=== PATIENT | male | born 1975 | race African-American/Black ===

== ENCOUNTER 2018-06-13 01:14 | Emergency (ER) | payer BC, OTHER ==
[2018-06-13 02:10] LABS: ADD MAN DIFF? NO
[2018-06-13 02:11] LABS: BASO # 0.1 x10^3/uL (0.0-0.2); BASO % 1 % (0-3); EOS # 0.1 x10^3/uL (0.0-0.7); EOS % 3 % (0-3); HEMATOCRIT 40.3 % (39.0-53.0); HEMOGLOBIN 13.8 g/dL (13.0-17.5); LYMPH # 2.9 x10^3/uL (1.0-4.8); LYMPH % 53 % (24-48); MEAN CORPUSCULAR HEMOGLOBIN 33 pg (25-35); MEAN CORPUSCULAR HGB CONC 34 g/dL (31-37); MEAN CORPUSCULAR VOLUME 96 fL (79-100); MONO # 0.3 x10^3/uL (0.0-1.1); MONO % 6 % (0-9); NEUT % 37 % (31-73); PLATELET COUNT 234 x10^3/uL (140-400); RED BLOOD COUNT 4.18 x10^6/uL (4.30-5.70); RED CELL DISTRIBUTION WIDTH 13.8 % (11.5-14.5); WHITE BLOOD COUNT 5.4 x10^3/uL (4.0-11.0)
[2018-06-13] MEDS: IV NORMAL SALINE 1000ML BAG 1,000 ML IV ×2 (02:13)
[2018-06-13] MEDS: KETOROLAC 30 MG/ML INJ. IV ×2 (02:13)
[2018-06-13] MEDS: FAMOTIDINE 20 MG/2 ML VIAL IVP ×2 (02:14)
[2018-06-13] MEDS: ONDANSETRON PF 4 MG/2 ML VIAL. IV ×2 (02:14)
[2018-06-13] MEDS ORDERED: IOHEXOL 240 MG/ML 50ML VIAL. PO ×2 (02:30)
[2018-06-13] MEDS ORDERED: IOHEXOL 300 MG/ML 100ML VIAL. IV ×2 (02:30)
[2018-06-13] MEDS ORDERED: CONTRAST GIVEN. MC ×2 (02:30)
[2018-06-13 03:21] LABS: ANION GAP 4 (6-14); BLOOD UREA NITROGEN 9 mg/dL (8-26); BUN/CREATININE RATIO 11 (6-20); CALCIUM 8.6 mg/dL (8.5-10.1); CARBON DIOXIDE 31 mmol/L (21-32); CHLORIDE 107 mmol/L (98-107); CREATININE 0.8 mg/dL (0.7-1.3); GFR 127.7; GLUCOSE 75 mg/dL (70-99); POTASSIUM 3.3 mmol/L (3.5-5.1); SODIUM 142 mmol/L (136-145)
[2018-06-13 03:22] LABS: BILIRUBIN,URINE NEGATIVE (NEG); CLARITY,URINE CLEAR; COLOR,URINE YELLOW; GLUCOSE,URINE NEGATIVE (NEG); NITRITE,URINE NEGATIVE (NEG); PROTEIN,URINE NEGATIVE (NEG-TRACE)
[2018-06-13 03:27] LABS: ALBUMIN 3.6 g/dL (3.4-5.0); ALBUMIN/GLOBULIN RATIO 1.2 (1.0-1.7); ALK PHOS 81 U/L (46-116); ALT (SGPT) 34 U/L (16-63); AST (SGOT) 23 U/L (15-37); LIPASE 321 U/L (73-393); MAGNESIUM 1.9 mg/dL (1.8-2.4); TOTAL BILIRUBIN 0.3 mg/dL (0.2-1.0); TOTAL PROTEIN 6.6 g/dL (6.4-8.2)
[2018-06-13 03:29] LABS: BACTERIA,URINE 0 /HPF (0-FEW); RBC,URINE 0 /HPF (0-2); SQUAMOUS EPITHELIAL CELL,UR MOD /LPF
[2018-06-13] MEDS: POTASSIUM CHLORIDE 20 MEQ TABLET.ER. PO ×2 (04:13)
== END 2018-06-13 05:35 | disposition home or self-care (01) ==
LOC: ER 01:14
DX: R10.32 Left lower quadrant pain (principal); R10.84 Generalized abdominal pain (principal); R10.31 Right lower quadrant pain
CPT/HCPCS: 36415; 74177; 80053; 81001; 83690; 83735; 85025; 87086; 96374; 96375; 99285-25; J1885; J2405; J7030; S0028

== ENCOUNTER 2018-11-22 07:27 | Inpatient (IN) | payer BC ==
[~2018-11-22] VITALS: Ht 188 cm; Wt 74.0 kg
[~2018-11-22 07:27] MED LIST: FAMO-63 PO; HYDR-3164 PO; HYOS0.1265 SL; ONDA4TAB7 PO; PANT40TA77 PO
--- NOTE | 2018-11-22 07:38 | EKG ---
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
[2018-11-22] MEDS ORDERED: ASPIRIN CHEWABLE 81 MG TABLET. PO ONE (07:45)
--- NOTE | 2018-11-22 07:48 | PHYS DOC ---
Past Medical History Past Medical History: Other Additional Past Medical Histor: peptic ulcer Past Surgical History: Other Additional Past Surgical Histo: inguinal hernia, RUPUTURED ULCER REPAIR Alcohol Use: None Drug Use: Marijuana Adult General HPI HPI Patient is a 43 year old male presenting with chest pain right side he said it started after eating raisin bread with peanut better he says it hurts to bend over to put his shoes and it hurts to bend over to lean back. It hurts when he twists a certain way to truly not exertional he has mild shortness of breath he is a regular smoker but otherwise no medical history that he knows of he does have a history of GERD but his abdomen is not hurting symptoms are moderate he came in by ambulance there slowly improving with time Review of Systems Review of Systems Constitutional: Denies fever or chills [] Eyes: Denies change in visual acuity, redness, or eye pain [] HENT: Denies nasal congestion or sore throat [] Respirator Cardiovascular: GI: Denies abdominal pain, nausea, vomiting, bloody stools or diarrhea [] : Denies dysuria or hematuria [] Musculoskeletal: Denies back pain or joint pain [] Integument: Denies rash or skin lesions [] Neurologic: Denies headache, focal weakness or sensory changes [] Endocrine: Denies polyuria or polydipsia [] All other systems were reviewed and found to be within normal limits, except as documented in this note. Current Medications Current Medications Current Medications Medications (Trade) Dose Ordered Sig/Mart Start Time Stop Time Status Last Admin Dose Admin Aspirin (Children'S Aspirin) 324 mg 1X ONCE 11/22/18 07:45 11/22/18 07:46 DC Fentanyl Citrate (Fentanyl 2ml Vial) 50 mcg 1X ONCE 11/22/18 08:15 11/22/18 08:16 DC 11/22/18 08:27 50 MCG Lidocaine/ Epinephrine (LIDOCAINE 1%-EPI 1:100,000 Multi-Dose) 20 ml 1X ONCE 11/22/18 08:15 11/22/18 08:16 DC 11/22/18 08:25 20 ML Midazolam HCl (Versed) 2 mg 1X ONCE 11/22/18 08:15 11/22/18 08:16 DC 11/22/18 08:26 2 MG Morphine Sulfate (Morphine Sulfate) 4 mg PRN Q2HR PRN 11/22/18 09:00 1/8/19 08:59 Allergies Allergies Allergies Coded Allergies Type Severity Reaction Last Updated Verified No Known Drug Allergies 07/09/15 No Physical Exam Physical Exam Constitutional: Well developed, well nourished, no acute distress, non-toxic appearance. [] HENT: Normocephalic, atraumatic, bilateral external ears normal, oropharynx moist, no oral exudates, nose normal. [] Eyes: PERRLA, EOMI, conjunctiva normal, no discharge. [] Neck: Normal range of motion, no tenderness, supple, no stridor. [] Cardiovascular:Heart rate regular rhythm, no murmur [] Lungs & Thorax: Bilateral breath sounds clear to auscultation []report of of chest wall tenderness Abdomen: Bowel sounds normal, soft, no tenderness, no masses, no pulsatile masses. [] Skin: Warm, dry, no erythema, no rash. [] Back: No tenderness, no CVA tenderness. [] Extremities: No tenderness, no cyanosis, no clubbing, ROM intact, no edema. [] Neurologic: Alert and oriented X 3, normal motor function, normal sensory function, no focal deficits noted. [] Psychologic: Affect normal, judgement normal, mood normal. [] Current Patient Data Vital Signs Vital Signs Date Time Temp Pulse Resp B/P (MAP) Pulse Ox O2 Delivery O2 Flow Rate FiO2 11/22/18 08:27 16 96 Room Air 11/22/18 07:30 98.3 79 117/72 (87) 98.3 Lab Values Laboratory Tests Test 11/22/18 07:45 White Blood Count 3.8 x10^3/uL (4.0-11.0) L Red Blood Count 4.46 x10^6/uL (4.30-5.70) Hemoglobin 14.9 g/dL (13.0-17.5) Hematocrit 43.4 % (39.0-53.0) Mean Corpuscular Volume 97 fL (79-100) Mean Corpuscular Hemoglobin 33 pg (25-35) Mean Corpuscular Hemoglobin Concent 34 g/dL (31-37) Red Cell Distribution Width 13.3 % (11.5-14.5) Platelet Count 258 x10^3/uL (140-400) Neutrophils (%) (Auto) 36 % (31-73) Lymphocytes (%) (Auto) 54 % (24-48) H Monocytes (%) (Auto) 6 % (0-9) Eosinophils (%) (Auto) 3 % (0-3) Basophils (%) (Auto) 1 % (0-3) Neutrophils # (Auto) 1.4 x10^3uL (1.8-7.7) L Lymphocytes # (Auto) 2.1 x10^3/uL (1.0-4.8) Monocytes # (Auto) 0.2 x10^3/uL (0.0-1.1) Eosinophils # (Auto) 0.1 x10^3/uL (0.0-0.7) Basophils # (Auto) 0.0 x10^3/uL (0.0-0.2) Prothrombin Time 13.3 SEC (11.7-14.0) Prothrombin Time INR 1.0 (0.8-1.1) D-Dimer (Chelsey) 0.53 ug/mlFEU (0.00-0.50) H Sodium Level 141 mmol/L (136-145) Potassium Level 4.4 mmol/L (3.5-5.1) Chloride Level 105 mmol/L (98-107) Carbon Dioxide Level 30 mmol/L (21-32) Anion Gap 6 (6-14) Blood Urea Nitrogen 8 mg/dL (8-26) Creatinine 0.8 mg/dL (0.7-1.3) Estimated GFR (Cockcroft-Gault) 127.7 BUN/Creatinine Ratio 10 (6-20) Glucose Level 85 mg/dL (70-99) Calcium Level 9.0 mg/dL (8.5-10.1) Total Bilirubin 0.5 mg/dL (0.2-1.0) Aspartate Amino Transferase (AST) 30 U/L (15-37) Alanine Aminotransferase (ALT) 26 U/L (16-63) Alkaline Phosphatase 97 U/L (46-116) Troponin I Quantitative < 0.017 ng/mL (0.000-0.055) FN-Bdu-Y-Type Natriuretic Peptide 9 pg/mL (0-124) Total Protein 7.3 g/dL (6.4-8.2) Albumin 3.5 g/dL (3.4-5.0) Albumin/Globulin Ratio 0.9 (1.0-1.7) L Ethyl Alcohol Level < 10 mg/dL (0-10) Laboratory Tests 11/22/18 07:45 Laboratory Tests 11/22/18 07:45 EKG EKG EKG shows a sinus rhythm rate of 73 probably lead placement and V2 but no STEMI was identified interpreted by me time of encounter.[] Radiology/Procedures Radiology/Procedures [] Impressions: LARGE PTX POST CHEST TUBE IMPROVED, CHEST TUBE IN GOOD POSITION Course & Med Decision Making Course & Med Decision Making Pertinent Labs and Imaging studies reviewed. (See chart for details) 43 YO M WITH PTX, LARGE. PROCEDURE NOTE: CHEST TUBE INFORMED CONSENT OBTAINED. CONFIRMED SIDE FENTANYL VERSED FOR PAIN AND ANXIOLYSIS AT SUBSEDATION DOSES . Area was prepped and draped in usual sterile fashion patient was connected to monitors an supplemental oxygen was going LIDOCAINE FOR SUBQ ANESTHEISA A 1.5 cm incision was made over the approximate 40 intercostal space mid care to over the superior portion of the rib usual technique into the pleura 24 Salvadorean tube was placed sutured in place usual dressing was applied patient tolerated quite well overall post procedure chest x-ray showed resolution of the previous pneumothorax discussed withSISILLO to follow the tube in house ADMITTED TO [facility] ORDERED PRIRO TO SEEING THE CXR WILL NOT PURSUE THAT FOR NOW Arnold Disclaimer Dragjoni Disclaimer This electronic medical record was generated, in whole or in part, using a voice recognition dictation system. Departure Departure Impression: Primary Impression: Chest pain Additional Impression: Pneumothorax Disposition: ADMITTED INPATIENT Condition: STABLE Referrals: NO PCP (PCP) Problem Qualifiers GUERA RUDOLPH MD Nov 22, 2018 07:48
--- NOTE | 2018-11-22 08:09 | RAD ---
Portable chest, 11/22/2018: HISTORY: Chest pain Comparison is made to a study from 07/18/2015. A large right-sided pneumothorax has developed. There is underlying atelectasis of the right lung. There is a mild [id number] mediastinal shift indicating that the pneumothorax is under some degree of tension. The left lung is clear. No pleural fluid is seen. IMPRESSION: Large right-sided tension pneumothorax. Note: The findings were called to personnel the [facility] ER at 8:03 AM on 11/22/2018. Electronically signed by: Julio C Vega MD (11/22/2018 8:04 AM) [facility]
[2018-11-22 08:15] LABS: BASO % 1 % (0-3); EOS # 0.1 x10^3/uL (0.0-0.7); EOS % 3 % (0-3); HEMATOCRIT 43.4 % (39.0-53.0); HEMOGLOBIN 14.9 g/dL (13.0-17.5); LYMPH # 2.1 x10^3/uL (1.0-4.8); LYMPH % 54 % (24-48); MEAN CORPUSCULAR HEMOGLOBIN 33 pg (25-35); MEAN CORPUSCULAR HGB CONC 34 g/dL (31-37); MEAN CORPUSCULAR VOLUME 97 fL (79-100); MONO # 0.2 x10^3/uL (0.0-1.1); MONO % 6 % (0-9); NEUT # 1.4 x10^3uL (1.8-7.7); NEUT % 36 % (31-73); PLATELET COUNT 258 x10^3/uL (140-400); RED BLOOD COUNT 4.46 x10^6/uL (4.30-5.70); RED CELL DISTRIBUTION WIDTH 13.3 % (11.5-14.5); WHITE BLOOD COUNT 3.8 x10^3/uL (4.0-11.0)
[2018-11-22] MEDS ORDERED: fentaNYL PF VIAL 100 MCG/2 ML VIAL IV ONE (08:15)
[2018-11-22] MEDS ORDERED: MIDAZOLAM HCL/PF 2 MG/2 ML VIAL. IV ONE (08:15)
[2018-11-22] MEDS ORDERED: LIDOCAINE 1%/EPI 1:100,000 20 ML VIAL. INJ ONE (08:15)
[2018-11-22 08:16] LABS: CREATININE 0.8 mg/dL (0.7-1.3); GFR 127.7; POTASSIUM 4.4 mmol/L (3.5-5.1)
[2018-11-22 08:22] LABS: ALBUMIN 3.5 g/dL (3.4-5.0); ALBUMIN/GLOBULIN RATIO 0.9 (1.0-1.7); TOTAL BILIRUBIN 0.5 mg/dL (0.2-1.0); TOTAL PROTEIN 7.3 g/dL (6.4-8.2)
[2018-11-22 08:27] LABS: PROTHROMBIN TIME PATIENT 13.3 SEC (11.7-14.0)
[2018-11-22 08:31] LABS: D-DIMER 0.53 ug/mlFEU (0.00-0.50)
--- NOTE | 2018-11-22 08:52 | PDOC1 ---
History and Physical Date of Admission Date of Admission DATE: 11/22/18 TIME: 08:49 Identification/Chief Complaint Chief Complaint Shortness of breath Source Source: Patient History of Present Illness History of Present Illness 43 year old male w/ PMHx Smoker, perforated pyloric ulcer and asthma p/w chest pain right side. He was sitting on the couch and he notes while eating a sandwich he had sudden shortness of breath worse when he bent over to put his shoes and it hurts to bend over to lean back. In ED found with a right sided pneumothorax that was relieved with chest tube placement. Started on some nebulizers and pain control. Admitted for further care. 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 Past Medical History Cardiovascular: No pertinent hx Pulmonary: Asthma GI: GI bleed, Peptic Ulcer disease Heme/Onc: No pertinent hx Hepatobiliary: No pertinent hx Psych: No pertinent hx Musculoskeletal: low back pain Rheumatologic: No pertinent hx Infectious disease: No pertinent hx ENT: No pertinent hx Renal/: No pertinent hx Endocrine: No pertinent hx Dermatology: No pertinent hx Family History Family History: Asthma Social History Smoke: 1 pack per day ALCOHOL: rare Drugs: None Current Problem List Problem List Problems Medical Problems: (1) Chest pain Status: Acute Current Medications Current Medications Current Medications Aspirin (Children'S Aspirin) 324 mg 1X ONCE PO ; Start 11/22/18 at 07:45; Stop 11/22/18 at 07:46; Status DC Fentanyl Citrate (Fentanyl 2ml Vial) 50 mcg 1X ONCE IV Last administered on 11/22/18at 08:27; Start 11/22/18 at 08:15; Stop 11/22/18 at 08:16; Status DC Lidocaine/ Epinephrine (LIDOCAINE 1%-EPI 1:100,000 Multi-Dose) 20 ml 1X ONCE INJ Last administered on 11/22/18at 08:25; Start 11/22/18 at 08:15; Stop 11/22/18 at 08:16; Status DC Midazolam HCl (Versed) 2 mg 1X ONCE IV Last administered on 11/22/18at 08:26; Start 11/22/18 at 08:15; Stop 11/22/18 at 08:16; Status DC Active Scripts Active Levsin-Sl (Hyoscyamine Sulfate) 0.125 Mg Tab.subl 1 Tab SL PRN Q4HRS PRN Zofran (Ondansetron Hcl) 4 Mg Tablet 1 Tab PO Q8HRS PRN Pepcid (Famotidine) 20 Mg Tablet 20 Mg PO BID [place] 5-325 Tablet (Acetaminophen/Hydrocodone Bitart) 1 Each Tablet 1 Tab PO PRN Q6HRS PRN Protonix (Pantoprazole Sodium) 40 Mg Tablet.dr 40 Mg PO DAILY Allergies Allergies: Coded Allergies: No Known Drug Allergies (Unverified , 07/09/15) ROS General: No: Chills, Night Sweats, Fatigue, Malaise, Appetite, Other PSYCHOLOGICAL ROS: No: Anxiety, Behavioral Disorder, Concentration difficultie , Decreased libido, Depression, Disorientation, Hallucinations, Hostility, Irritablity, Memory difficulties, Mood Swings, Obsessive thoughts, Physical abuse, Sexual abuse, Sleep disturbances, Suicidal ideation, Other Eyes: No Blurry vision, No Decreased vision, No Double vision, No Dry eyes, No Excessive tearing, No Eye Pain, No Itchy Eyes, No Loss of vision, No Photophobia , No Scotomata, No Uses contacts, No Uses glasses, No Other HEENT: No: Heacaches, Visual Changes, Hearing change, Nasal congestion, Nasal discharge, Oral lesions, Sinus pain, Sore Throat, Epistaxis, Sneezing, Snoring, Tinnitus, Vertigo, Vocal changes, Other ALLERGY AND IMMUNOLOGY: No: Hives, Insect Bite Sensitivity, Itchy/Watery Eyes, Nasal Congestion, Post Nasal Drip, Seasonal Allergies, Other Hematological and Lymphatic: No: Bleeding Problems, Blood Clots, Blood Transfusions, Brusing, Night Sweats, Pallor, Swollen Lymph Nodes, Other ENDOCRINE: No: Breast Changes, Galactorrhea, Hair Pattern Changes, Hot Flashes , Malaise/lethargy, Mood Swings, Palpitations, Polydipsia/polyuria, Skin Changes , Temperature Intolerance, Unexpected Weight Changes, Other Breast: No New/Changing Breast Lumps, No Nipple changes, No Nipple discharge, No Other Respiratory: YES: Pleuritic Pain, Shortness of breath; No: Cough, Hemoptysis, Orthopnea, SOB with excertion, Sputum Changes, Stridor , Tachypnea, Wheezing, Other Cardiovascular: yes Chest Pain; No Palpitations, No Orthopnea, No Paroxysmal Noc. Dyspnea, No Edema, No Lt Headedness, No Other Gastrointestinal: Yes Nausea; No Vomiting, No Abdominal Pain, No Diarrhea, No Constipation, No Melena, No Hematochezia, No Other Genitourinary: No Dysuria, No Frequency, No Incontinence, No Hematuria, No Retention, No Discharge, No Urgency, No Pain, No Flank Pain, No Other, No , No , No , No , No , No , No Musculoskeletal: No Gait Disturbance, No Joint Pain, No Joint Stiffness, No Joint Swelling, No Muscle Pain, No Muscular Weakness, No Pain In:, No Swelling In:, No Other Neurological: No Behavorial Changes, No Bowel/Bladder ControlChng, No Confusion , No Dizziness, No Gait Disturbance, No Headaches, No Impaired Coord/balance, No Memory Loss, No Numbness/Tingling, No Seizures, No Speech Problems, No Tremors, No Visual Changes, No Weakness, No Other Skin: No Dry Skin, No Eczema, No Hair Changes, No Lumps, No Mole Changes, No Mottling, No Nail Changes, No Pruritus, No Rash, No Skin Lesion Changes, No Other, No Acne Physical Exam General: Alert, Oriented X3, Cooperative, mild distress HEENT: Atraumatic, PERRLA, EOMI, Mucous membr. moist/pink Lungs: Clear to auscultation, Normal air movement, Other (Right sided chest tube dressing clean and dry) Heart: S1S2, RRR, no gallops, no murmurs Abdomen: Normal bowel sounds, Soft, No tenderness, No hepatosplenomegaly, No masses Extremities: No clubbing, No cyanosis, No edema, Normal pulses, No tenderness/ swelling Skin: No rashes, No breakdown, No significant lesion Neuro: Normal gait, Normal speech, Strength at 5/5 X4 ext, Normal tone, Sensation intact, Cranial nerves 3-12 NL, Reflexes 2+ Psych/Mental Status: Mental status NL, Mood NL Vitals Vitals Vital Signs Date Time Temp Pulse Resp B/P (MAP) Pulse Ox O2 Delivery O2 Flow Rate FiO2 11/22/18 08:27 16 96 Room Air 11/22/18 07:30 98.3 79 117/72 (87) 98.3 Labs Labs Laboratory Tests Test 11/22/18 07:45 White Blood Count 3.8 x10^3/uL (4.0-11.0) Red Blood Count 4.46 x10^6/uL (4.30-5.70) Hemoglobin 14.9 g/dL (13.0-17.5) Hematocrit 43.4 % (39.0-53.0) Mean Corpuscular Volume 97 fL (79-100) Mean Corpuscular Hemoglobin 33 pg (25-35) Mean Corpuscular Hemoglobin Concent 34 g/dL (31-37) Red Cell Distribution Width 13.3 % (11.5-14.5) Platelet Count 258 x10^3/uL (140-400) Neutrophils (%) (Auto) 36 % (31-73) Lymphocytes (%) (Auto) 54 % (24-48) Monocytes (%) (Auto) 6 % (0-9) Eosinophils (%) (Auto) 3 % (0-3) Basophils (%) (Auto) 1 % (0-3) Neutrophils # (Auto) 1.4 x10^3uL (1.8-7.7) Lymphocytes # (Auto) 2.1 x10^3/uL (1.0-4.8) Monocytes # (Auto) 0.2 x10^3/uL (0.0-1.1) Eosinophils # (Auto) 0.1 x10^3/uL (0.0-0.7) Basophils # (Auto) 0.0 x10^3/uL (0.0-0.2) Prothrombin Time 13.3 SEC (11.7-14.0) Prothromb Time International Ratio 1.0 (0.8-1.1) D-Dimer (Chelsey) 0.53 ug/mlFEU (0.00-0.50) Sodium Level 141 mmol/L (136-145) Potassium Level 4.4 mmol/L (3.5-5.1) Chloride Level 105 mmol/L (98-107) Carbon Dioxide Level 30 mmol/L (21-32) Anion Gap 6 (6-14) Blood Urea Nitrogen 8 mg/dL (8-26) Creatinine 0.8 mg/dL (0.7-1.3) Estimated GFR (Cockcroft-Gault) 127.7 BUN/Creatinine Ratio 10 (6-20) Glucose Level 85 mg/dL (70-99) Calcium Level 9.0 mg/dL (8.5-10.1) Total Bilirubin 0.5 mg/dL (0.2-1.0) Aspartate Amino Transf (AST/SGOT) 30 U/L (15-37) Alanine Aminotransferase (ALT/SGPT) 26 U/L (16-63) Alkaline Phosphatase 97 U/L (46-116) Troponin I Quantitative < 0.017 ng/mL (0.000-0.055) BB-Zex-J-Type Natriuretic Peptide 9 pg/mL (0-124) Total Protein 7.3 g/dL (6.4-8.2) Albumin 3.5 g/dL (3.4-5.0) Albumin/Globulin Ratio 0.9 (1.0-1.7) Ethyl Alcohol Level < 10 mg/dL (0-10) Laboratory Tests Test 11/22/18 07:45 White Blood Count 3.8 x10^3/uL (4.0-11.0) Red Blood Count 4.46 x10^6/uL (4.30-5.70) Hemoglobin 14.9 g/dL (13.0-17.5) Hematocrit 43.4 % (39.0-53.0) Mean Corpuscular Volume 97 fL (79-100) Mean Corpuscular Hemoglobin 33 pg (25-35) Mean Corpuscular Hemoglobin Concent 34 g/dL (31-37) Red Cell Distribution Width 13.3 % (11.5-14.5) Platelet Count 258 x10^3/uL (140-400) Neutrophils (%) (Auto) 36 % (31-73) Lymphocytes (%) (Auto) 54 % (24-48) Monocytes (%) (Auto) 6 % (0-9) Eosinophils (%) (Auto) 3 % (0-3) Basophils (%) (Auto) 1 % (0-3) Neutrophils # (Auto) 1.4 x10^3uL (1.8-7.7) Lymphocytes # (Auto) 2.1 x10^3/uL (1.0-4.8) Monocytes # (Auto) 0.2 x10^3/uL (0.0-1.1) Eosinophils # (Auto) 0.1 x10^3/uL (0.0-0.7) Basophils # (Auto) 0.0 x10^3/uL (0.0-0.2) Prothrombin Time 13.3 SEC (11.7-14.0) Prothromb Time International Ratio 1.0 (0.8-1.1) D-Dimer (Chelsey) 0.53 ug/mlFEU (0.00-0.50) Sodium Level 141 mmol/L (136-145) Potassium Level 4.4 mmol/L (3.5-5.1) Chloride Level 105 mmol/L (98-107) Carbon Dioxide Level 30 mmol/L (21-32) Anion Gap 6 (6-14) Blood Urea Nitrogen 8 mg/dL (8-26) Creatinine 0.8 mg/dL (0.7-1.3) Estimated GFR (Cockcroft-Gault) 127.7 BUN/Creatinine Ratio 10 (6-20) Glucose Level 85 mg/dL (70-99) Calcium Level 9.0 mg/dL (8.5-10.1) Total Bilirubin 0.5 mg/dL (0.2-1.0) Aspartate Amino Transf (AST/SGOT) 30 U/L (15-37) Alanine Aminotransferase (ALT/SGPT) 26 U/L (16-63) Alkaline Phosphatase 97 U/L (46-116) Troponin I Quantitative < 0.017 ng/mL (0.000-0.055) ST-Ogf-T-Type Natriuretic Peptide 9 pg/mL (0-124) Total Protein 7.3 g/dL (6.4-8.2) Albumin 3.5 g/dL (3.4-5.0) Albumin/Globulin Ratio 0.9 (1.0-1.7) Ethyl Alcohol Level < 10 mg/dL (0-10) Images Images CXR - Large right-sided tension pneumothorax. VTE Prophylaxis Ordered VTE Prophylaxis Devices: Yes VTE Pharmacological Prophylaxi: No Assessment/Plan Assessment/Plan A/P: Right sided pneumothorax - Spontaneous, resolution with chest tube placement. Will consult pulm Chronic asthmatic bronchitis - agree he needs smoking cessation and likely alpha -1 testing Smoker - counseled on cessation h/o PUD - with bleeding requiring transfusion, will use SCDs, GI PPx FEN - General diet PPX - SCDs, GI PPX FULL CODE Inpatient for PTX monitoring of resolution, etiology. Appreciate pulmonary consultation MANDO JEREZ MD Nov 22, 2018 08:52
--- NOTE | 2018-11-22 09:09 | RAD ---
Portable chest, 11/22/2018, 8:31 AM: HISTORY: Pneumothorax Comparison is made to study of earlier the same day. A right chest tube has been inserted with resolution of the previously seen large right pneumothorax. No significant residual pneumothorax is evident. The lung has largely reexpanded with only mild residual streaky right perihilar atelectasis. There is mild subcutaneous emphysema in the right lateral chest wall. The left lung remains clear. The heart size is normal. There is no evidence of significant pneumothorax. IMPRESSION: Interval resolution of the right pneumothorax status post right chest tube placement. Electronically signed by: Julio C Vega MD (11/22/2018 9:05 AM) [facility]
[2018-11-22 09:14] LABS: AMPHETAMINE/METHAMPHETAMINE NEG (NEG); BARBITURATES NEG (NEG); BENZODIAZEPINES NEG (NEG); CANNABINOIDS NEG (NEG); COCAINE NEG (NEG); METHADONE NEG (NEG); OPIATES NEG (NEG); PHENCYCLIDINE NEG (NEG)
[2018-11-22 10:30] VITALS: BP 114/79
[2018-11-22] MEDS: MORPHINE SULFATE 4 MG/ML VIAL. IV PRN ×3 (11:01→21:31)
--- NOTE | 2018-11-22 13:15 | PDOC ---
PULMONARY PROGRESS NOTES Vitals Vital Signs Date Time Temp Pulse Resp B/P (MAP) Pulse Ox O2 Delivery O2 Flow Rate FiO2 11/22/18 11:01 16 Nasal Cannula 2.0 11/22/18 10:30 97.6 57 114/79 (91) 98 97.6 Lungs: Clear Labs Laboratory Tests Test 11/22/18 07:45 11/22/18 08:22 White Blood Count 3.8 x10^3/uL (4.0-11.0) Red Blood Count 4.46 x10^6/uL (4.30-5.70) Hemoglobin 14.9 g/dL (13.0-17.5) Hematocrit 43.4 % (39.0-53.0) Mean Corpuscular Volume 97 fL (79-100) Mean Corpuscular Hemoglobin 33 pg (25-35) Mean Corpuscular Hemoglobin Concent 34 g/dL (31-37) Red Cell Distribution Width 13.3 % (11.5-14.5) Platelet Count 258 x10^3/uL (140-400) Neutrophils (%) (Auto) 36 % (31-73) Lymphocytes (%) (Auto) 54 % (24-48) Monocytes (%) (Auto) 6 % (0-9) Eosinophils (%) (Auto) 3 % (0-3) Basophils (%) (Auto) 1 % (0-3) Neutrophils # (Auto) 1.4 x10^3uL (1.8-7.7) Lymphocytes # (Auto) 2.1 x10^3/uL (1.0-4.8) Monocytes # (Auto) 0.2 x10^3/uL (0.0-1.1) Eosinophils # (Auto) 0.1 x10^3/uL (0.0-0.7) Basophils # (Auto) 0.0 x10^3/uL (0.0-0.2) Prothrombin Time 13.3 SEC (11.7-14.0) Prothromb Time International Ratio 1.0 (0.8-1.1) D-Dimer (Chelsey) 0.53 ug/mlFEU (0.00-0.50) Sodium Level 141 mmol/L (136-145) Potassium Level 4.4 mmol/L (3.5-5.1) Chloride Level 105 mmol/L (98-107) Carbon Dioxide Level 30 mmol/L (21-32) Anion Gap 6 (6-14) Blood Urea Nitrogen 8 mg/dL (8-26) Creatinine 0.8 mg/dL (0.7-1.3) Estimated GFR (Cockcroft-Gault) 127.7 BUN/Creatinine Ratio 10 (6-20) Glucose Level 85 mg/dL (70-99) Calcium Level 9.0 mg/dL (8.5-10.1) Total Bilirubin 0.5 mg/dL (0.2-1.0) Aspartate Amino Transf (AST/SGOT) 30 U/L (15-37) Alanine Aminotransferase (ALT/SGPT) 26 U/L (16-63) Alkaline Phosphatase 97 U/L (46-116) Troponin I Quantitative < 0.017 ng/mL (0.000-0.055) BH-Qyf-Q-Type Natriuretic Peptide 9 pg/mL (0-124) Total Protein 7.3 g/dL (6.4-8.2) Albumin 3.5 g/dL (3.4-5.0) Albumin/Globulin Ratio 0.9 (1.0-1.7) Ethyl Alcohol Level < 10 mg/dL (0-10) Urine Opiates Screen Neg (NEG) Urine Methadone Screen Neg (NEG) Urine Barbiturates Neg (NEG) Urine Phencyclidine Screen Neg (NEG) Urine Amphetamine/Methamphetamine Neg (NEG) Urine Benzodiazepines Screen Neg (NEG) Urine Cocaine Screen Neg (NEG) Urine Cannabinoids Screen Neg (NEG) Urine Ethyl Alcohol Neg (NEG) Laboratory Tests Test 11/22/18 07:45 11/22/18 08:22 White Blood Count 3.8 x10^3/uL (4.0-11.0) Red Blood Count 4.46 x10^6/uL (4.30-5.70) Hemoglobin 14.9 g/dL (13.0-17.5) Hematocrit 43.4 % (39.0-53.0) Mean Corpuscular Volume 97 fL (79-100) Mean Corpuscular Hemoglobin 33 pg (25-35) Mean Corpuscular Hemoglobin Concent 34 g/dL (31-37) Red Cell Distribution Width 13.3 % (11.5-14.5) Platelet Count 258 x10^3/uL (140-400) Neutrophils (%) (Auto) 36 % (31-73) Lymphocytes (%) (Auto) 54 % (24-48) Monocytes (%) (Auto) 6 % (0-9) Eosinophils (%) (Auto) 3 % (0-3) Basophils (%) (Auto) 1 % (0-3) Neutrophils # (Auto) 1.4 x10^3uL (1.8-7.7) Lymphocytes # (Auto) 2.1 x10^3/uL (1.0-4.8) Monocytes # (Auto) 0.2 x10^3/uL (0.0-1.1) Eosinophils # (Auto) 0.1 x10^3/uL (0.0-0.7) Basophils # (Auto) 0.0 x10^3/uL (0.0-0.2) Prothrombin Time 13.3 SEC (11.7-14.0) Prothromb Time International Ratio 1.0 (0.8-1.1) D-Dimer (Chelsey) 0.53 ug/mlFEU (0.00-0.50) Sodium Level 141 mmol/L (136-145) Potassium Level 4.4 mmol/L (3.5-5.1) Chloride Level 105 mmol/L (98-107) Carbon Dioxide Level 30 mmol/L (21-32) Anion Gap 6 (6-14) Blood Urea Nitrogen 8 mg/dL (8-26) Creatinine 0.8 mg/dL (0.7-1.3) Estimated GFR (Cockcroft-Gault) 127.7 BUN/Creatinine Ratio 10 (6-20) Glucose Level 85 mg/dL (70-99) Calcium Level 9.0 mg/dL (8.5-10.1) Total Bilirubin 0.5 mg/dL (0.2-1.0) Aspartate Amino Transf (AST/SGOT) 30 U/L (15-37) Alanine Aminotransferase (ALT/SGPT) 26 U/L (16-63) Alkaline Phosphatase 97 U/L (46-116) Troponin I Quantitative < 0.017 ng/mL (0.000-0.055) KR-Xux-C-Type Natriuretic Peptide 9 pg/mL (0-124) Total Protein 7.3 g/dL (6.4-8.2) Albumin 3.5 g/dL (3.4-5.0) Albumin/Globulin Ratio 0.9 (1.0-1.7) Ethyl Alcohol Level < 10 mg/dL (0-10) Urine Opiates Screen Neg (NEG) Urine Methadone Screen Neg (NEG) Urine Barbiturates Neg (NEG) Urine Phencyclidine Screen Neg (NEG) Urine Amphetamine/Methamphetamine Neg (NEG) Urine Benzodiazepines Screen Neg (NEG) Urine Cocaine Screen Neg (NEG) Urine Cannabinoids Screen Neg (NEG) Urine Ethyl Alcohol Neg (NEG) Medications Active Scripts Medications Dose Route/Sig Max Daily Dose Days Date Category Levsin-Sl (Hyoscyamine Sulfate) 0.125 Mg Tab.subl 1 Tab SL PRN Q4HRS PRN 06/13/18 Rx Zofran (Ondansetron Hcl) 4 Mg Tablet 1 Tab PO Q8HRS PRN 06/13/18 Rx Pepcid (Famotidine) 20 Mg Tablet 20 Mg PO BID 06/13/18 Rx [place] 5-325 Tablet (Acetaminophen/Hydrocodone Bitart) 1 Each Tablet 1 Tab PO PRN Q6HRS PRN 10/26/16 Rx Protonix (Pantoprazole Sodium) 40 Mg Tablet.dr 40 Mg PO DAILY 10/26/16 Rx Impression . DICTATED SEE ORDERS PTX DAY SANABRIA MD Nov 22, 2018 13:15
[2018-11-22 15:00] VITALS: BP 118/76
--- NOTE | 2018-11-22 15:42 | RAD ---
CT of the chest without contrast, 11/22/2018: HISTORY: Pneumothorax Noncontrast scans were obtained with multiplanar reconstructions produced. Some of the images in the upper chest are compromised by patient respiratory motion artifact. A large caliber right chest tube is in place extending into the lateral aspect of the right oblique fissure. There is minimal adjacent parenchymal atelectasis/contusion. A small right pneumothorax is present. Several small subpleural blebs and bullae are seen in the right apex which may represent the source of the pneumothorax. There is mild atelectasis/infiltrate posteriorly in the right lower lobe. A few other scattered streaky opacities in the right lung probably represent atelectasis. There is mild atelectasis posteriorly in the left lower lobe. There are couple small subpleural blebs in the left apex and medial aspect of the left upper lobe. No left-sided pneumothorax is seen. There is no evidence of a significant volume of free pleural fluid on either side. There is a small cystic structure in the right cardiophrenic angle anteriorly which in retrospect was also present on 06/13/2018. This probably represents a small pericardial cyst. There is a paucity of mediastinal fat in this patient. The thoracic aorta is of normal caliber. No mediastinal adenopathy is seen. There is mild chest wall emphysema laterally on the right related to the chest tube insertion site. No recent fracture is identified. IMPRESSION: 1. A right chest tube is in place with a small residual right pneumothorax. 2. Mild associated right lateral chest wall emphysema. 3. Subpleural blebs and small bullae in the apices, more so on the right. 4. Mild atelectasis/infiltrate posteriorly in the right lung base, with a few other scattered streaky right pulmonary opacities compatible with atelectasis. 5. Mild left basilar atelectasis. 6. Probable small pericardial cyst on the right. PQRS Compliance Statement: One or more of the following individualized dose reduction techniques were utilized for this examination: 1. Automated exposure control 2. Adjustment of the mA and/or kV according to patient size 3. Use of iterative reconstruction technique Electronically signed by: Julio C Vega MD (11/22/2018 3:38 PM) [facility]
[2018-11-22] MEDS ORDERED: INFLUENZA VAX SCREEN BY RX. MC PRN (16:30)
--- NOTE | 2018-11-22 19:30 | CONS ---
DATE OF CONSULTATION: 11/22/2018 ATTENDING PHYSICIAN: Michael Álvarez MD. REASON FOR CONSULTATION: The patient seen in pulmonary consultation at the request of Dr. Ávlarez for a spontaneous pneumothorax. HISTORY OF PRESENT ILLNESS: The patient is a 43-year-old that smokes, presented with an acute onset of shortness of air and chest discomfort, was sitting at a sofa watching TV. The patient had a chest x-ray revealing pneumothorax. The Emergency Department physician placed a right chest tube. Currently, the lung is up. The patient is having some discomfort from the tube itself. No recent trauma. Denies any prior history of pneumothorax. No family history of early emphysema or pneumothorax. REVIEW OF SYSTEMS: As indicated above, otherwise, a 10-point system was reviewed and negative. SOCIAL HISTORY: He smokes, works at [employer]. CURRENT MEDICATIONS: List was reviewed. FAMILY HISTORY: No family history of early emphysema. PHYSICAL EXAMINATION: GENERAL: Thin individual in no respiratory distress. VITAL SIGNS: Stable. O2 saturation was greater than 92% on 2 liters. HEENT: Eyes, the sclerae were nonicteric. NECK: No subcutaneous emphysema. CHEST: Full expansion. LUNGS: Poor airway flow, no wheezes. CARDIOVASCULAR: Regular rate and rhythm with S1, S2, no S3. ABDOMEN: Soft, nontender, nondistended. EXTREMITIES: No clubbing, cyanosis or edema. NEUROLOGIC: The patient was awake, alert, following commands. A detailed neuro exam was not performed. LABORATORY DATA: Electrolytes were noted. Urine drug screen was negative. INR was 1.0. White count was normal. Chest x-ray as indicated above. IMPRESSION: 1. Spontaneous pneumothorax. 2. Chronic obstructive pulmonary disease, unknown FEV1. PLAN: 1. Continue chest tube placement. 2. Follow up in the outpatient department. We will obtain an alpha [address] chest. I do appreciate the privilege in sharing this patient's care. DAY SANABRIA MD DR: ASHTYN/nayely JOB#: [id number] / [id number]
[2018-11-22 19:35] VITALS: BP 137/93
[2018-11-22] MEDS ORDERED: ONDANSETRON ODT 4 MG TAB.RAPDIS. PO PRN (21:15)
[2018-11-22] MEDS ORDERED: HYOSCYAMINE 0.125 MG TAB.RAPDIS PO PRN (21:15)
[2018-11-22] MEDS: FAMOTIDINE 20 MG TABLET. PO SCH (21:30)
[2018-11-22 23:29] VITALS: BP 117/78
[2018-11-23 04:00] VITALS: BP 115/80
[2018-11-23] MEDS: PANTOPRAZOLE 40 MG TABLET.DR. PO SCH (06:05)
[2018-11-23] MEDS: MORPHINE SULFATE 4 MG/ML VIAL. IV PRN (06:11)
[2018-11-23 07:00] VITALS: BP 131/88
[2018-11-23] MEDS: FAMOTIDINE 20 MG TABLET. PO SCH (08:48)
--- NOTE | 2018-11-23 10:25 | RAD ---
Portable chest, 11/23/2017: HISTORY: Follow-up pneumothorax Comparison is made to yesterday's study at 8:31 AM. The right chest tube has retracted slightly. There is now a small right apical pneumothorax. There is mild ongoing subcutaneous emphysema in the right lateral chest wall which is stable. There is mild bibasilar atelectasis/infiltrate, not evident on yesterday's portable chest radiograph. No significant pleural fluid is seen. The heart size is normal. IMPRESSION: 1. The right chest tube has retracted slightly. 2. A small right apical pneumothorax has redeveloped. 3. Mild bibasilar atelectasis/infiltrate has developed. Electronically signed by: Julio C Vega MD (11/23/2018 10:21 AM) [facility]
--- NOTE | 2018-11-23 10:26 | NUR ---
Patients requests that he get his flu shot at discharge.
[2018-11-23] MEDS: HYDROcodone/APAP 5/325MG 1 TAB TABLET PO PRN ×2 (10:54→17:53)
[2018-11-23 11:00] VITALS: BP 113/74
--- NOTE | 2018-11-23 13:03 | PDOC ---
PULMONARY PROGRESS NOTES Subjective no soa Vitals Vital Signs Date Time Temp Pulse Resp B/P (MAP) Pulse Ox O2 Delivery O2 Flow Rate FiO2 11/23/18 11:56 16 Room Air 11/23/18 11:00 98.5 61 113/74 (87) 95 98.5 11/22/18 15:00 2.0 General: Alert, No acute distress Lungs: Clear Cardiovascular: S1 Abdomen: Soft Neuro Exam: Alert Extremities: No Edema Skin: Warm Labs Laboratory Tests Test 11/22/18 07:45 11/22/18 08:22 11/22/18 15:25 White Blood Count 3.8 x10^3/uL (4.0-11.0) Red Blood Count 4.46 x10^6/uL (4.30-5.70) Hemoglobin 14.9 g/dL (13.0-17.5) Hematocrit 43.4 % (39.0-53.0) Mean Corpuscular Volume 97 fL (79-100) Mean Corpuscular Hemoglobin 33 pg (25-35) Mean Corpuscular Hemoglobin Concent 34 g/dL (31-37) Red Cell Distribution Width 13.3 % (11.5-14.5) Platelet Count 258 x10^3/uL (140-400) Neutrophils (%) (Auto) 36 % (31-73) Lymphocytes (%) (Auto) 54 % (24-48) Monocytes (%) (Auto) 6 % (0-9) Eosinophils (%) (Auto) 3 % (0-3) Basophils (%) (Auto) 1 % (0-3) Neutrophils # (Auto) 1.4 x10^3uL (1.8-7.7) Lymphocytes # (Auto) 2.1 x10^3/uL (1.0-4.8) Monocytes # (Auto) 0.2 x10^3/uL (0.0-1.1) Eosinophils # (Auto) 0.1 x10^3/uL (0.0-0.7) Basophils # (Auto) 0.0 x10^3/uL (0.0-0.2) Prothrombin Time 13.3 SEC (11.7-14.0) Prothromb Time International Ratio 1.0 (0.8-1.1) D-Dimer (Chelsey) 0.53 ug/mlFEU (0.00-0.50) Sodium Level 141 mmol/L (136-145) Potassium Level 4.4 mmol/L (3.5-5.1) Chloride Level 105 mmol/L (98-107) Carbon Dioxide Level 30 mmol/L (21-32) Anion Gap 6 (6-14) Blood Urea Nitrogen 8 mg/dL (8-26) Creatinine 0.8 mg/dL (0.7-1.3) Estimated GFR (Cockcroft-Gault) 127.7 BUN/Creatinine Ratio 10 (6-20) Glucose Level 85 mg/dL (70-99) Calcium Level 9.0 mg/dL (8.5-10.1) Total Bilirubin 0.5 mg/dL (0.2-1.0) Aspartate Amino Transf (AST/SGOT) 30 U/L (15-37) Alanine Aminotransferase (ALT/SGPT) 26 U/L (16-63) Alkaline Phosphatase 97 U/L (46-116) Troponin I Quantitative < 0.017 ng/mL (0.000-0.055) XG-Zhv-G-Type Natriuretic Peptide 9 pg/mL (0-124) Total Protein 7.3 g/dL (6.4-8.2) Albumin 3.5 g/dL (3.4-5.0) Albumin/Globulin Ratio 0.9 (1.0-1.7) Ethyl Alcohol Level < 10 mg/dL (0-10) Urine Opiates Screen Neg (NEG) Urine Methadone Screen Neg (NEG) Urine Barbiturates Neg (NEG) Urine Phencyclidine Screen Neg (NEG) Urine Amphetamine/Methamphetamine Neg (NEG) Urine Benzodiazepines Screen Neg (NEG) Urine Cocaine Screen Neg (NEG) Urine Cannabinoids Screen Neg (NEG) Urine Ethyl Alcohol Neg (NEG) Qnhzr-2-Ixnsifpogfn 146 mg/dL (90-200) Laboratory Tests Test 11/22/18 15:25 Szfbq-1-Vxsdqebiuiu 146 mg/dL (90-200) Medications Active Scripts Medications Dose Route/Sig Max Daily Dose Days Date Category Levsin-Sl (Hyoscyamine Sulfate) 0.125 Mg Tab.subl 1 Tab SL PRN Q4HRS PRN 06/13/18 Rx Zofran (Ondansetron Hcl) 4 Mg Tablet 1 Tab PO Q8HRS PRN 06/13/18 Rx Pepcid (Famotidine) 20 Mg Tablet 20 Mg PO BID 06/13/18 Rx [place] 5-325 Tablet (Acetaminophen/Hydrocodone Bitart) 1 Each Tablet 1 Tab PO PRN Q6HRS PRN 10/26/16 Rx Protonix (Pantoprazole Sodium) 40 Mg Tablet.dr 40 Mg PO DAILY 10/26/16 Rx Impression . 1. Spontaneous Rt pneumothorax. 2. Chronic obstructive pulmonary disease, unknown FEV1. Plan . 1. Continue chest tube placement/ suction/ positive air leak 2. We will obtain an alpha 1antitrypsin as OP 3. CT chest C/W APICAL BLEB ESHA NELSON MD Nov 23, 2018 13:03
--- NOTE | 2018-11-23 13:51 | NUR ---
SW following for discharge planning. Discussed with RN, pt is from home with family. RN advised no SW needs at this time. SW will continue to follow.
[2018-11-23 15:00] VITALS: BP 125/89
[2018-11-23 19:00] VITALS: BP 115/64
--- NOTE | 2018-11-23 19:06 | PDOC ---
PROGRESS NOTES Chief Complaint Chief Complaint SOB better this AM History of Present Illness History of Present Illness A/P: Right sided pneumothorax - Spontaneous, resolution with chest tube placement. aprec pulm. continue CT to suction, still with air leak. check alpha 1 AT. Chronic asthmatic bronchitis - agree he needs smoking cessation Smoker - counseled on cessation h/o PUD - with bleeding requiring transfusion, will use SCDs, GI PPx FEN - General diet PPX - SCDs, GI PPX FULL CODE Inpatient for PTX monitoring of resolution, etiology. Appreciate pulmonary consultation Vitals Vitals Vital Signs Date Time Temp Pulse Resp B/P (MAP) Pulse Ox O2 Delivery O2 Flow Rate FiO2 11/23/18 18:56 16 Room Air 11/23/18 15:00 97.6 62 125/89 (101) 96 97.6 11/22/18 15:00 2.0 Physical Exam General: Alert, Oriented X3, Cooperative, mild distress Lungs: Clear Abdomen: Normal bowel sounds, Soft, No tenderness, No hepatosplenomegaly, No masses Extremities: No clubbing, No cyanosis, No edema, Normal pulses, No tenderness/ swelling Skin: No rashes, No breakdown, No significant lesion Assessment and Plan Assessmemt and Plan Problems Medical Problems: (1) Chest pain Status: Acute Comment Review of Relevant I have reviewed the following items neida (where applicable) has been applied. Labs Laboratory Tests Test 11/22/18 07:45 11/22/18 08:22 11/22/18 15:25 White Blood Count 3.8 x10^3/uL (4.0-11.0) Red Blood Count 4.46 x10^6/uL (4.30-5.70) Hemoglobin 14.9 g/dL (13.0-17.5) Hematocrit 43.4 % (39.0-53.0) Mean Corpuscular Volume 97 fL (79-100) Mean Corpuscular Hemoglobin 33 pg (25-35) Mean Corpuscular Hemoglobin Concent 34 g/dL (31-37) Red Cell Distribution Width 13.3 % (11.5-14.5) Platelet Count 258 x10^3/uL (140-400) Neutrophils (%) (Auto) 36 % (31-73) Lymphocytes (%) (Auto) 54 % (24-48) Monocytes (%) (Auto) 6 % (0-9) Eosinophils (%) (Auto) 3 % (0-3) Basophils (%) (Auto) 1 % (0-3) Neutrophils # (Auto) 1.4 x10^3uL (1.8-7.7) Lymphocytes # (Auto) 2.1 x10^3/uL (1.0-4.8) Monocytes # (Auto) 0.2 x10^3/uL (0.0-1.1) Eosinophils # (Auto) 0.1 x10^3/uL (0.0-0.7) Basophils # (Auto) 0.0 x10^3/uL (0.0-0.2) Prothrombin Time 13.3 SEC (11.7-14.0) Prothromb Time International Ratio 1.0 (0.8-1.1) D-Dimer (Chelsey) 0.53 ug/mlFEU (0.00-0.50) Sodium Level 141 mmol/L (136-145) Potassium Level 4.4 mmol/L (3.5-5.1) Chloride Level 105 mmol/L (98-107) Carbon Dioxide Level 30 mmol/L (21-32) Anion Gap 6 (6-14) Blood Urea Nitrogen 8 mg/dL (8-26) Creatinine 0.8 mg/dL (0.7-1.3) Estimated GFR (Cockcroft-Gault) 127.7 BUN/Creatinine Ratio 10 (6-20) Glucose Level 85 mg/dL (70-99) Calcium Level 9.0 mg/dL (8.5-10.1) Total Bilirubin 0.5 mg/dL (0.2-1.0) Aspartate Amino Transf (AST/SGOT) 30 U/L (15-37) Alanine Aminotransferase (ALT/SGPT) 26 U/L (16-63) Alkaline Phosphatase 97 U/L (46-116) Troponin I Quantitative < 0.017 ng/mL (0.000-0.055) DG-Mdh-X-Type Natriuretic Peptide 9 pg/mL (0-124) Total Protein 7.3 g/dL (6.4-8.2) Albumin 3.5 g/dL (3.4-5.0) Albumin/Globulin Ratio 0.9 (1.0-1.7) Ethyl Alcohol Level < 10 mg/dL (0-10) Urine Opiates Screen Neg (NEG) Urine Methadone Screen Neg (NEG) Urine Barbiturates Neg (NEG) Urine Phencyclidine Screen Neg (NEG) Urine Amphetamine/Methamphetamine Neg (NEG) Urine Benzodiazepines Screen Neg (NEG) Urine Cocaine Screen Neg (NEG) Urine Cannabinoids Screen Neg (NEG) Urine Ethyl Alcohol Neg (NEG) Woqks-5-Tpdtqngdlof 146 mg/dL (90-200) Medications Current Medications Aspirin (Children'S Aspirin) 324 mg 1X ONCE PO Last administered on 11/22/18at 07:45; Start 11/22/18 at 07:45; Stop 11/22/18 at 07:46; Status DC Fentanyl Citrate (Fentanyl 2ml Vial) 50 mcg 1X ONCE IV Last administered on 11/22/18at 08:27; Start 11/22/18 at 08:15; Stop 11/22/18 at 08:16; Status DC Lidocaine/ Epinephrine (LIDOCAINE 1%-EPI 1:100,000 Multi-Dose) 20 ml 1X ONCE INJ Last administered on 11/22/18at 08:25; Start 11/22/18 at 08:15; Stop 11/22/18 at 08:16; Status DC Midazolam HCl (Versed) 2 mg 1X ONCE IV Last administered on 11/22/18at 08:26; Start 11/22/18 at 08:15; Stop 11/22/18 at 08:16; Status DC Morphine Sulfate (Morphine Sulfate) 4 mg PRN Q2HR PRN IV PAIN Last administered on 11/23/18at 06:11; Start 11/22/18 at 09:00; Stop 11/23/18 at 08:59; Status DC Info (FLU VACCINE SCREEN per RX) 1 each PRN 1X PRN MC SEE COMMENTS; Start at 16:30; Status Cancel Influenza Virus Vaccine (Afluria Trivalent [id number] Syringe) 0.5 ml ONCE ONCE VAX IM ; Start 11/22/18 at 16:45; Stop 11/22/18 at 16:46; Status DC Famotidine (Pepcid) 20 mg BID PO Last administered on 11/23/18at 08:48; Start 11/22/18 at 21:00; Stop 11/23/18 at 11:15; Status DC Acetaminophen/ Hydrocodone Bitart (Lortab 5/325) 1 tab PRN Q6HRS PRN PO MODERATE PAIN Last administered on 11/23/18at 17:53; Start 11/22/18 at 21:00 Pantoprazole Sodium (Protonix) 40 mg DAILYAC PO Last administered on 11/23/18at 06:05; Start 11/23/18 at 07:30 Hyoscyamine (Anaspaz) 0.125 mg PRN Q4HRS PRN PO STOMACH CRAMPING; Start at 21:15 Ondansetron HCl (Zofran Odt) 4 mg PRN Q8HRS PRN PO NAUSEA/VOMITING 1ST CHOICE; Start 11/22/18 at 21:15 Active Scripts Active Levsin-Sl (Hyoscyamine Sulfate) 0.125 Mg Tab.subl 1 Tab SL PRN Q4HRS PRN Zofran (Ondansetron Hcl) 4 Mg Tablet 1 Tab PO Q8HRS PRN Pepcid (Famotidine) 20 Mg Tablet 20 Mg PO BID [place] 5-325 Tablet (Acetaminophen/Hydrocodone Bitart) 1 Each Tablet 1 Tab PO PRN Q6HRS PRN Protonix (Pantoprazole Sodium) 40 Mg Tablet.dr 40 Mg PO DAILY Vitals/I & O Vital Sign - Last 24 Hours 11/22/18 11/22/18 11/22/18 11/22/18 19:35 20:43 21:31 23:29 Temp 98.3 97.8 98.3 97.8 Pulse 85 57 Resp 16 16 B/P (MAP) 137/93 (108) 117/78 (91) Pulse Ox 90 94 O2 Delivery Room Air Room Air Room Air Room Air 11/23/18 11/23/18 11/23/18 11/23/18 04:00 06:11 07:00 07:00 Temp 98.2 98.2 98.2 98.2 Pulse 64 61 Resp 16 16 18 B/P (MAP) 115/80 (92) 131/88 (102) Pulse Ox 100 92 O2 Delivery Room Air Room Air Room Air Room Air 11/23/18 11/23/18 11/23/18 11/23/18 08:00 10:54 11:00 15:00 Temp 98.5 97.6 98.5 97.6 Pulse 61 62 Resp 16 18 16 B/P (MAP) 113/74 (87) 125/89 (101) Pulse Ox 95 96 O2 Delivery Room Air Room Air Room Air Room Air 11/23/18 11/23/18 17:53 18:56 Resp 16 16 O2 Delivery Room Air Room Air Intake and Output 11/22/18 11/22/18 11/23/18 15:01 23:01 07:01 Intake Total 200 ml 300 ml Output Total 401 ml 126 ml Balance -201 ml 174 ml HAYDEN REVELES MD Nov 23, 2018 19:06
[2018-11-23 23:00] VITALS: BP 132/82
[2018-11-24] MEDS: HYDROcodone/APAP 5/325MG 1 TAB TABLET PO PRN ×4 (02:19→19:29)
[2018-11-24 03:00] VITALS: BP 130/86
[2018-11-24] MEDS: PANTOPRAZOLE 40 MG TABLET.DR. PO SCH (06:07)
[2018-11-24 07:00] VITALS: BP 125/84
--- NOTE | 2018-11-24 07:37 | NUR ---
The total output from the chest tube has been 180cc from placement on the 11/22/18 to now 11/24/18 at 0730.
--- NOTE | 2018-11-24 09:37 | RAD ---
EXAM: Chest, single view. HISTORY: Pneumothorax COMPARISON: 11/23/2018 FINDINGS: A frontal view of the chest is obtained. There is a stable small right pneumothorax. There is a right thoracostomy tube unchanged in position. There is a small amount of soft tissue gas along the lateral right chest wall. No pleural effusion is seen. There is suspected bilateral lower lobe atelectasis. The heart is normal in size. IMPRESSION: 1. Stable small right pneumothorax and positioning of a right thoracostomy tube. 2. Suspected bilateral lower lobe atelectasis. Electronically signed by: Deborah Lindsay MD (11/24/2018 9:33 AM) [place] [id number]
--- NOTE | 2018-11-24 10:24 | NUR ---
SW following for dc planning. Discussed with RN, RN advised no SW needs at this time. SW will continue to follow.
[2018-11-24 11:00] VITALS: BP 117/71
--- NOTE | 2018-11-24 12:23 | PDOC ---
PROGRESS NOTES Chief Complaint Chief Complaint SOB stable. reports pain History of Present Illness History of Present Illness A/P: Right sided pneumothorax - Spontaneous, resolution with chest tube placement. aprec pulm. continue CT to suction, still with air leak. check alpha 1 AT. adjust pain meds for pleuric pain Chronic asthmatic bronchitis - agree he needs smoking cessation Smoker - counseled on cessation h/o PUD - with bleeding requiring transfusion, will use SCDs, GI PPx FEN - General diet PPX - SCDs, GI PPX FULL CODE Inpatient for PTX monitoring of resolution, etiology. Appreciate pulmonary consultation Vitals Vitals Vital Signs Date Time Temp Pulse Resp B/P (MAP) Pulse Ox O2 Delivery O2 Flow Rate FiO2 11/24/18 11:00 97.3 73 16 117/71 (86) 93 Room Air 97.3 Physical Exam General: Alert, Oriented X3, Cooperative, mild distress Lungs: Clear, Other (CT in place to suction) Abdomen: Normal bowel sounds, Soft, No tenderness, No hepatosplenomegaly, No masses Extremities: No clubbing, No cyanosis, No edema, Normal pulses, No tenderness/ swelling Skin: No rashes, No breakdown, No significant lesion Assessment and Plan Assessmemt and Plan Problems Medical Problems: (1) Chest pain Status: Acute Comment Review of Relevant I have reviewed the following items neida (where applicable) has been applied. Labs Laboratory Tests Test 11/22/18 15:25 Kakgi-8-Vbqlcmzmbbe 146 mg/dL (90-200) Medications Current Medications Aspirin (Children'S Aspirin) 324 mg 1X ONCE PO Last administered on 11/22/18at 07:45; Start 11/22/18 at 07:45; Stop 11/22/18 at 07:46; Status DC Fentanyl Citrate (Fentanyl 2ml Vial) 50 mcg 1X ONCE IV Last administered on 11/22/18at 08:27; Start 11/22/18 at 08:15; Stop 11/22/18 at 08:16; Status DC Lidocaine/ Epinephrine (LIDOCAINE 1%-EPI 1:100,000 Multi-Dose) 20 ml 1X ONCE INJ Last administered on 11/22/18at 08:25; Start 11/22/18 at 08:15; Stop 11/22/18 at 08:16; Status DC Midazolam HCl (Versed) 2 mg 1X ONCE IV Last administered on 11/22/18at 08:26; Start 11/22/18 at 08:15; Stop 11/22/18 at 08:16; Status DC Morphine Sulfate (Morphine Sulfate) 4 mg PRN Q2HR PRN IV PAIN Last administered on 11/23/18at 06:11; Start 11/22/18 at 09:00; Stop 11/23/18 at 08:59; Status DC Info (FLU VACCINE SCREEN per RX) 1 each PRN 1X PRN MC SEE COMMENTS; Start at 16:30; Status Cancel Influenza Virus Vaccine (Afluria Trivalent [id number] Syringe) 0.5 ml ONCE ONCE VAX IM ; Start 11/22/18 at 16:45; Stop 11/22/18 at 16:46; Status DC Famotidine (Pepcid) 20 mg BID PO Last administered on 11/23/18at 08:48; Start 11/22/18 at 21:00; Stop 11/23/18 at 11:15; Status DC Acetaminophen/ Hydrocodone Bitart (Lortab 5/325) 1 tab PRN Q6HRS PRN PO MODERATE PAIN Last administered on 11/24/18at 08:17; Start 11/22/18 at 21:00 Pantoprazole Sodium (Protonix) 40 mg DAILYAC PO Last administered on 11/24/18at 06:07; Start 11/23/18 at 07:30 Hyoscyamine (Anaspaz) 0.125 mg PRN Q4HRS PRN PO STOMACH CRAMPING; Start at 21:15 Ondansetron HCl (Zofran Odt) 4 mg PRN Q8HRS PRN PO NAUSEA/VOMITING 1ST CHOICE; Start 11/22/18 at 21:15 Active Scripts Active Levsin-Sl (Hyoscyamine Sulfate) 0.125 Mg Tab.subl 1 Tab SL PRN Q4HRS PRN Zofran (Ondansetron Hcl) 4 Mg Tablet 1 Tab PO Q8HRS PRN Pepcid (Famotidine) 20 Mg Tablet 20 Mg PO BID [place] 5-325 Tablet (Acetaminophen/Hydrocodone Bitart) 1 Each Tablet 1 Tab PO PRN Q6HRS PRN Protonix (Pantoprazole Sodium) 40 Mg Tablet.dr 40 Mg PO DAILY Vitals/I & O Vital Sign - Last 24 Hours 11/23/18 11/23/18 11/23/18 11/23/18 15:00 17:53 18:56 19:00 Temp 97.6 98.2 97.6 98.2 Pulse 62 66 Resp 16 16 16 18 B/P (MAP) 125/89 (101) 115/64 (81) Pulse Ox 96 92 O2 Delivery Room Air Room Air Room Air 11/23/18 11/23/18 11/24/18 11/24/18 20:25 23:00 02:19 03:00 Temp 97.8 97.6 97.8 97.6 Pulse 58 66 Resp 18 18 B/P (MAP) 132/82 (99) 130/86 (101) Pulse Ox 95 96 O2 Delivery Room Air Room Air Room Air Room Air 11/24/18 11/24/18 11/24/18 11/24/18 03:19 07:00 08:17 11:00 Temp 97.3 97.3 97.3 97.3 Pulse 65 73 Resp 16 16 B/P (MAP) 125/84 (98) 117/71 (86) Pulse Ox 92 93 O2 Delivery Room Air Room Air Room Air Room Air Intake and Output 11/23/18 11/23/18 11/24/18 15:01 23:01 07:01 Intake Total 680 ml 345 ml Output Total 1 ml 120 ml 600 ml Balance 679 ml 225 ml -600 ml HAYDEN REVELES MD Nov 24, 2018 12:23
[2018-11-24 15:00] VITALS: BP 108/74
[2018-11-24] MEDS: DOCUSATE SODIUM 100 MG CAPSULE. PO SCH (17:30)
[2018-11-24 19:00] VITALS: BP 98/69
[2018-11-24] MEDS: HYDROcodone/APAP 10/325 1 TAB TABLET PO PRN (22:23)
--- NOTE | 2018-11-24 22:33 | NUR ---
Page Dr. Singh at [phone] per his office msg. Received a call from Dr. Hollingsworth stating that was the incorrect pager number. Paged Dr. Singh again at [phone]. Spoke with Dr. Singh and notified him of continuously bubbling from chest tube. No orders received. Will continue to monitor. Addendum: 11/25/18 at 0029 by RAEANN LINDER RN Per Dr. Singh, he was already aware of the bubbling from chest tube.
[2018-11-24 23:00] VITALS: BP 114/77
[2018-11-25] MEDS: HYDROcodone/APAP 10/325 1 TAB TABLET PO PRN ×6 (02:43→23:50)
[2018-11-25 03:00] VITALS: BP 111/71
[2018-11-25] MEDS: PANTOPRAZOLE 40 MG TABLET.DR. PO SCH (06:18)
[2018-11-25 07:00] VITALS: BP 126/85
--- NOTE | 2018-11-25 08:35 | RAD ---
PORTABLE CHEST 1V History: Pneumothorax Comparison: November 24, 2018 Findings: AP view of the chest is submitted. There is again right chest tube. Small right pneumothorax near the apex is similar. There is again some gas in the right lateral chest wall. There is some persistent likely atelectasis of the bilateral lung bases. There is no significant pleural fluid. Heart size is stable. Impression: 1. There is stable small right pneumothorax, right chest tube present. 2. There is bibasilar atelectasis. Electronically signed by: Landry Wright MD (11/25/2018 8:31 AM) [id number]
--- NOTE | 2018-11-25 09:01 | PDOC ---
PULMONARY PROGRESS NOTES Subjective no soa, some cw pain Vitals Vital Signs Date Time Temp Pulse Resp B/P (MAP) Pulse Ox O2 Delivery O2 Flow Rate FiO2 11/25/18 07:00 98.8 72 16 126/85 (99) 93 Room Air 98.8 General: Alert, No acute distress Lungs: Other (decrease bs) Cardiovascular: S1 Abdomen: Soft Neuro Exam: Alert Extremities: No Edema Skin: Warm Medications Active Scripts Medications Dose Route/Sig Max Daily Dose Days Date Category Levsin-Sl (Hyoscyamine Sulfate) 0.125 Mg Tab.subl 1 Tab SL PRN Q4HRS PRN 06/13/18 Rx Zofran (Ondansetron Hcl) 4 Mg Tablet 1 Tab PO Q8HRS PRN 06/13/18 Rx Pepcid (Famotidine) 20 Mg Tablet 20 Mg PO BID 06/13/18 Rx [place] 5-325 Tablet (Acetaminophen/Hydrocodone Bitart) 1 Each Tablet 1 Tab PO PRN Q6HRS PRN 10/26/16 Rx Protonix (Pantoprazole Sodium) 40 Mg Tablet.dr 40 Mg PO DAILY 10/26/16 Rx Impression . 1. Spontaneous Rt pneumothorax. First episode with persistent large air leak and small persistent right apical PTX 2. Chronic obstructive pulmonary disease, unknown FEV1. Plan . 1. Continue chest tube placement/ suction/ 2. We will obtain an alpha 1antitrypsin as OP 3. CT chest C/W APICAL BLEB 4. d/w patient and PCP. Doubt air leak will resolve anytime soon. Would benefit from early intervention by thoracic surgery. d/w Dr Smallwood. consult placed ESHA NELSON MD Nov 25, 2018 09:01
[2018-11-25] MEDS: DOCUSATE SODIUM 100 MG CAPSULE. PO SCH (10:30)
[2018-11-25 11:00] VITALS: BP 123/73
[2018-11-25 15:00] VITALS: BP 134/77
--- NOTE | 2018-11-25 16:11 | PDOC2 ---
CONSULT Date of Consult Date of Consult DATE: 11/25/18 TIME: 15:50 Reason for Consult Reason for Consult: Spontaneous R pneumothorax with persistent air leak. Referring Physician Referring Physician: Dr Singh Identification/Chief Complaint Chief Complaint SOB Source Source: Chart review, Patient History of Present Illness Reason for Visit: The patient is a 43-year-old that smokes, who presented on 11/22/18 with an acute onset of shortness of breath and chest discomfort. The patient had a chest x- ray which showed a spontaneous R pneumothorax. The Emergency Department physician placed a right chest tube. Currently, the lung is up but he has a persistent large air leak. CT showed large apical blebs. This is his first ever PTX. No recent trauma. No family history of early emphysema or pneumothorax. Past Medical History Cardiovascular: No pertinent hx Pulmonary: Asthma GI: GI bleed, Peptic Ulcer disease Heme/Onc: No pertinent hx Hepatobiliary: No pertinent hx Psych: No pertinent hx Musculoskeletal: low back pain Rheumatologic: No pertinent hx Infectious disease: No pertinent hx ENT: No pertinent hx Renal/: No pertinent hx Endocrine: No pertinent hx Dermatology: No pertinent hx Past Surgical History Past Surgical History: Other (ex-lap for gastric ulcers) Family History Family History: Asthma Social History 1 pack per day ALCOHOL: rare Drugs: None Current Problem List Problem List Problems Medical Problems: (1) Chest pain Status: Acute Current Medications Current Medications Current Medications Aspirin (Children'S Aspirin) 324 mg 1X ONCE PO Last administered on 11/22/18at 07:45; Start 11/22/18 at 07:45; Stop 11/22/18 at 07:46; Status DC Fentanyl Citrate (Fentanyl 2ml Vial) 50 mcg 1X ONCE IV Last administered on 11/22/18at 08:27; Start 11/22/18 at 08:15; Stop 11/22/18 at 08:16; Status DC Lidocaine/ Epinephrine (LIDOCAINE 1%-EPI 1:100,000 Multi-Dose) 20 ml 1X ONCE INJ Last administered on 11/22/18at 08:25; Start 11/22/18 at 08:15; Stop 11/22/18 at 08:16; Status DC Midazolam HCl (Versed) 2 mg 1X ONCE IV Last administered on 11/22/18at 08:26; Start 11/22/18 at 08:15; Stop 11/22/18 at 08:16; Status DC Morphine Sulfate (Morphine Sulfate) 4 mg PRN Q2HR PRN IV PAIN Last administered on 11/23/18at 06:11; Start 11/22/18 at 09:00; Stop 11/23/18 at 08:59; Status DC Info (FLU VACCINE SCREEN per RX) 1 each PRN 1X PRN MC SEE COMMENTS; Start at 16:30; Status Cancel Influenza Virus Vaccine (Afluria Trivalent [id number] Syringe) 0.5 ml ONCE ONCE VAX IM ; Start 11/22/18 at 16:45; Stop 11/22/18 at 16:46; Status DC Famotidine (Pepcid) 20 mg BID PO Last administered on 11/23/18at 08:48; Start 11/22/18 at 21:00; Stop 11/23/18 at 11:15; Status DC Acetaminophen/ Hydrocodone Bitart (Lortab 5/325) 1 tab PRN Q6HRS PRN PO MODERATE PAIN Last administered on 11/24/18at 08:17; Start 11/22/18 at 21:00; Stop 11/24/18 at 12:24; Status DC Pantoprazole Sodium (Protonix) 40 mg DAILYAC PO Last administered on 11/25/18at 06:18; Start 11/23/18 at 07:30 Hyoscyamine (Anaspaz) 0.125 mg PRN Q4HRS PRN PO STOMACH CRAMPING; Start at 21:15 Ondansetron HCl (Zofran Odt) 4 mg PRN Q8HRS PRN PO NAUSEA/VOMITING 1ST CHOICE; Start 11/22/18 at 21:15 Acetaminophen/ Hydrocodone Bitart (Lortab 5/325) 1 tab PRN Q4HRS PRN PO MODERATE PAIN Last administered on 11/24/18at 19:29; Start 11/24/18 at 12:30; Stop 11/24/18 at 22:17; Status DC Polyethylene Glycol (miraLAX PACKET) 17 gm PRN DAILY PRN PO CONSTIPATION; Start 11/24/18 at 17:15 Docusate Sodium (Colace) 100 mg DAILY PO Last administered on 11/25/18at 10:30; Start 11/24/18 at 17:30 Acetaminophen/ Hydrocodone Bitart (Lortab 10/325) 1 tab PRN Q4HRS PRN PO PAIN Last administered on 11/25/18at 14:45; Start 11/24/18 at 22:15 Ondansetron HCl (Zofran) 4 mg PRN Q6HRS PRN IV NAUSEA/VOMITING; Start 11/26/18 at 07:00; Stop 11/26/18 at 18:00 Fentanyl Citrate (Fentanyl 2ml Vial) 25 mcg PRN Q5MIN PRN IV MILD PAIN; Start 11/26/18 at 07:00; Stop 11/26/18 at 18:00 Fentanyl Citrate (Fentanyl 2ml Vial) 50 mcg PRN Q5MIN PRN IV MODERATE TO SEVERE PAIN; Start 11/26/18 at 07:00; Stop 11/26/18 at 18:00 Morphine Sulfate (Morphine Sulfate) 1 mg PRN Q10MIN PRN IV SEVERE PAIN; Start 11/26/18 at 07:00; Stop 11/26/18 at 18:00 Ringer's Solution 1,000 ml @ 30 mls/hr Q24H IV ; Start 11/26/18 at 07:00; Stop 11/26/18 at 18:59 Lidocaine HCl (Xylocaine-Mpf 1% 2ml Vial) 2 ml PRN 1X PRN ID IV START; Start at 07:00; Stop 11/26/18 at 18:00 Hydromorphone HCl (Dilaudid) 0.5 mg PRN Q10MIN PRN IV SEV PAIN, Second choice; Start 11/26/18 at 07:00; Stop 11/26/18 at 18:00 Prochlorperazine Edisylate (Compazine) 5 mg PACU PRN PRN IV NAUSEA, MRX1; Start 11/26/18 at 07:00; Stop 11/26/18 at 18:00 Active Scripts Active Levsin-Sl (Hyoscyamine Sulfate) 0.125 Mg Tab.subl 1 Tab SL PRN Q4HRS PRN Zofran (Ondansetron Hcl) 4 Mg Tablet 1 Tab PO Q8HRS PRN Pepcid (Famotidine) 20 Mg Tablet 20 Mg PO BID [place] 5-325 Tablet (Acetaminophen/Hydrocodone Bitart) 1 Each Tablet 1 Tab PO PRN Q6HRS PRN Protonix (Pantoprazole Sodium) 40 Mg Tablet.dr 40 Mg PO DAILY Allergies Allergies: Coded Allergies: No Known Drug Allergies (Unverified , 07/09/15) ROS General: No: Chills, Night Sweats, Fatigue, Malaise, Appetite PSYCHOLOGICAL ROS: No: Anxiety, Behavioral Disorder, Concentration difficultie , Decreased libido, Depression, Disorientation, Hallucinations, Hostility, Irritablity, Memory difficulties, Mood Swings, Obsessive thoughts, Physical abuse, Sexual abuse, Sleep disturbances, Suicidal ideation Eyes: No Blurry vision, No Decreased vision, No Double vision, No Dry eyes, No Excessive tearing, No Eye Pain, No Itchy Eyes, No Loss of vision, No Photophobia , No Scotomata, No Uses contacts, No Uses glasses HEENT: No: Heacaches, Visual Changes, Hearing change, Nasal congestion, Nasal discharge, Oral lesions, Sinus pain, Sore Throat, Epistaxis, Sneezing, Snoring, Tinnitus, Vertigo, Vocal changes ALLERGY AND IMMUNOLOGY: No: Hives, Insect Bite Sensitivity, Itchy/Watery Eyes, Nasal Congestion, Post Nasal Drip, Seasonal Allergies Hematological and Lymphatic: No: Bleeding Problems, Blood Clots, Blood Transfusions, Brusing, Night Sweats, Pallor, Swollen Lymph Nodes ENDOCRINE: No: Breast Changes, Galactorrhea, Hair Pattern Changes, Hot Flashes , Malaise/lethargy, Mood Swings, Palpitations, Polydipsia/polyuria, Skin Changes , Temperature Intolerance, Unexpected Weight Changes Respiratory: YES: Shortness of breath; No: Cough, Hemoptysis, Orthopnea, Pleuritic Pain, SOB with excertion, Sputum Changes, Stridor, Tachypnea, Wheezing Cardiovascular: yes Chest Pain; No Palpitations, No Orthopnea, No Paroxysmal Noc. Dyspnea, No Edema, No Lt Headedness Gastrointestinal: No Nausea, No Vomiting, No Abdominal Pain, No Diarrhea, No Constipation, No Melena, No Hematochezia Genitourinary: No Dysuria, No Frequency, No Incontinence, No Hematuria, No Retention, No Discharge, No Urgency, No Pain, No Flank Pain Musculoskeletal: Yes Other; No Gait Disturbance, No Joint Pain, No Joint Stiffness, No Joint Swelling, No Muscle Pain, No Muscular Weakness, No Pain In:, No Swelling In: Neurological: Yes Other; No Behavorial Changes, No Bowel/Bladder ControlChng, No Confusion, No Dizziness, No Gait Disturbance, No Headaches, No Impaired Coord/balance, No Memory Loss, No Numbness/Tingling, No Seizures, No Speech Problems, No Tremors, No Visual Changes, No Weakness Skin: Yes Other; No Dry Skin, No Eczema, No Hair Changes, No Lumps, No Mole Changes, No Mottling, No Nail Changes, No Pruritus, No Rash, No Skin Lesion Changes, No Acne Physical Exam General: Alert, Oriented X3, No acute distress HEENT: Atraumatic, PERRLA Lungs: Clear to auscultation Heart: Regular rate, Normal S1, Normal S2 Abdomen: Soft, No tenderness Extremities: No edema Skin: No significant lesion Neuro: Normal gait, Normal speech, Strength at 5/5 X4 ext, Normal tone, Sensation intact, Cranial nerves 3-12 NL, Reflexes 2+ Psych/Mental Status: Mental status NL MUSCULOSKELETAL: No deformity Vitals VITALS Vital Signs Date Time Temp Pulse Resp B/P (MAP) Pulse Ox O2 Delivery O2 Flow Rate FiO2 11/25/18 14:45 Room Air 11/25/18 11:00 97.9 73 18 123/73 (90) 96 97.9 Assessment/Plan Assessment/Plan 43-year-old male, who presented on 11/22/18 with a spontaneous R pneumothorax. Right chest tube has been placed. Currently, the lung is up but he has a persistent large air leak. CT showed large apical blebs. This is his first ever PTX. Given the large size of his blebs and the persistent large air leak, I think a R VATS, wedge resection of blebs and mechanical pleurodesis is indicated. The risks, which include but are not limited to persistent air leak, recurrence , infection, need for thoracotomy, DVT/PE were explained to the patient who agrees to proceed. Plan for R VATS, wedge resection and mechanical pleurodesis tomorrow at 11am. AIDEE CAMERON MD Nov 25, 2018 16:11
--- NOTE | 2018-11-25 16:27 | NUR ---
SW following. Discussed with RN, RN advised no SW needs at this time. SW will continue to follow.
--- NOTE | 2018-11-25 16:27 | PDOC ---
PROGRESS NOTES Chief Complaint Chief Complaint SOB stable. reports pain History of Present Illness History of Present Illness A/P: Right sided pneumothorax - Spontaneous, resolution with chest tube placement. aprec pulm. continue CT to suction, still with air leak. alpha 1 AT normal. adjusted pain meds for pleuritic pain. plan for R VATS, wedge resection and mechanical pleurodesis tomorrow at 11am. aprec CT sx Chronic asthmatic bronchitis - agree he needs smoking cessation Smoker - counseled on cessation h/o PUD - with bleeding requiring transfusion, will use SCDs, GI PPx FEN - General diet PPX - SCDs, GI PPX FULL CODE Inpatient for surgery. Appreciate pulmonary and CT sx consultation Vitals Vitals Vital Signs Date Time Temp Pulse Resp B/P (MAP) Pulse Ox O2 Delivery O2 Flow Rate FiO2 11/25/18 14:45 Room Air 11/25/18 11:00 97.9 73 18 123/73 (90) 96 97.9 Physical Exam General: Alert, Oriented X3, No acute distress Heart: Regular rate, Normal S1, Normal S2 Lungs: Other (decrease bs) Abdomen: Soft, No tenderness Extremities: No edema Skin: No significant lesion Assessment and Plan Assessmemt and Plan Problems Medical Problems: (1) Chest pain Status: Acute Comment Review of Relevant I have reviewed the following items neida (where applicable) has been applied. Medications Current Medications Aspirin (Children'S Aspirin) 324 mg 1X ONCE PO Last administered on 11/22/18at 07:45; Start 11/22/18 at 07:45; Stop 11/22/18 at 07:46; Status DC Fentanyl Citrate (Fentanyl 2ml Vial) 50 mcg 1X ONCE IV Last administered on 11/22/18at 08:27; Start 11/22/18 at 08:15; Stop 11/22/18 at 08:16; Status DC Lidocaine/ Epinephrine (LIDOCAINE 1%-EPI 1:100,000 Multi-Dose) 20 ml 1X ONCE INJ Last administered on 11/22/18at 08:25; Start 11/22/18 at 08:15; Stop 11/22/18 at 08:16; Status DC Midazolam HCl (Versed) 2 mg 1X ONCE IV Last administered on 11/22/18at 08:26; Start 11/22/18 at 08:15; Stop 11/22/18 at 08:16; Status DC Morphine Sulfate (Morphine Sulfate) 4 mg PRN Q2HR PRN IV PAIN Last administered on 11/23/18at 06:11; Start 11/22/18 at 09:00; Stop 11/23/18 at 08:59; Status DC Info (FLU VACCINE SCREEN per RX) 1 each PRN 1X PRN MC SEE COMMENTS; Start at 16:30; Status Cancel Influenza Virus Vaccine (Afluria Trivalent [id number] Syringe) 0.5 ml ONCE ONCE VAX IM ; Start 11/22/18 at 16:45; Stop 11/22/18 at 16:46; Status DC Famotidine (Pepcid) 20 mg BID PO Last administered on 11/23/18at 08:48; Start 11/22/18 at 21:00; Stop 11/23/18 at 11:15; Status DC Acetaminophen/ Hydrocodone Bitart (Lortab 5/325) 1 tab PRN Q6HRS PRN PO MODERATE PAIN Last administered on 11/24/18at 08:17; Start 11/22/18 at 21:00; Stop 11/24/18 at 12:24; Status DC Pantoprazole Sodium (Protonix) 40 mg DAILYAC PO Last administered on 11/25/18at 06:18; Start 11/23/18 at 07:30 Hyoscyamine (Anaspaz) 0.125 mg PRN Q4HRS PRN PO STOMACH CRAMPING; Start at 21:15 Ondansetron HCl (Zofran Odt) 4 mg PRN Q8HRS PRN PO NAUSEA/VOMITING 1ST CHOICE; Start 11/22/18 at 21:15 Acetaminophen/ Hydrocodone Bitart (Lortab 5/325) 1 tab PRN Q4HRS PRN PO MODERATE PAIN Last administered on 11/24/18at 19:29; Start 11/24/18 at 12:30; Stop 11/24/18 at 22:17; Status DC Polyethylene Glycol (miraLAX PACKET) 17 gm PRN DAILY PRN PO CONSTIPATION; Start 11/24/18 at 17:15 Docusate Sodium (Colace) 100 mg DAILY PO Last administered on 11/25/18at 10:30; Start 11/24/18 at 17:30 Acetaminophen/ Hydrocodone Bitart (Lortab 10/325) 1 tab PRN Q4HRS PRN PO PAIN Last administered on 11/25/18at 14:45; Start 11/24/18 at 22:15 Ondansetron HCl (Zofran) 4 mg PRN Q6HRS PRN IV NAUSEA/VOMITING; Start 11/26/18 at 07:00; Stop 11/26/18 at 18:00 Fentanyl Citrate (Fentanyl 2ml Vial) 25 mcg PRN Q5MIN PRN IV MILD PAIN; Start 11/26/18 at 07:00; Stop 11/26/18 at 18:00 Fentanyl Citrate (Fentanyl 2ml Vial) 50 mcg PRN Q5MIN PRN IV MODERATE TO SEVERE PAIN; Start 11/26/18 at 07:00; Stop 11/26/18 at 18:00 Morphine Sulfate (Morphine Sulfate) 1 mg PRN Q10MIN PRN IV SEVERE PAIN; Start 11/26/18 at 07:00; Stop 11/26/18 at 18:00 Ringer's Solution 1,000 ml @ 30 mls/hr Q24H IV ; Start 11/26/18 at 07:00; Stop 11/26/18 at 18:59 Lidocaine HCl (Xylocaine-Mpf 1% 2ml Vial) 2 ml PRN 1X PRN ID IV START; Start at 07:00; Stop 11/26/18 at 18:00 Hydromorphone HCl (Dilaudid) 0.5 mg PRN Q10MIN PRN IV SEV PAIN, Second choice; Start 11/26/18 at 07:00; Stop 11/26/18 at 18:00 Prochlorperazine Edisylate (Compazine) 5 mg PACU PRN PRN IV NAUSEA, MRX1; Start 11/26/18 at 07:00; Stop 11/26/18 at 18:00 Active Scripts Active Levsin-Sl (Hyoscyamine Sulfate) 0.125 Mg Tab.subl 1 Tab SL PRN Q4HRS PRN Zofran (Ondansetron Hcl) 4 Mg Tablet 1 Tab PO Q8HRS PRN Pepcid (Famotidine) 20 Mg Tablet 20 Mg PO BID [place] 5-325 Tablet (Acetaminophen/Hydrocodone Bitart) 1 Each Tablet 1 Tab PO PRN Q6HRS PRN Protonix (Pantoprazole Sodium) 40 Mg Tablet.dr 40 Mg PO DAILY Vitals/I & O Vital Sign - Last 24 Hours 11/24/18 11/24/18 11/24/18 11/24/18 19:00 19:29 20:30 21:41 Temp 98.6 98.6 Pulse 79 Resp 18 B/P (MAP) 98/69 (79) Pulse Ox 96 O2 Delivery Room Air Room Air Room Air Room Air 11/24/18 11/24/18 11/25/18 11/25/18 22:23 23:00 02:43 03:00 Temp 98.7 97.9 98.7 97.9 Pulse 76 89 Resp 16 16 B/P (MAP) 114/77 (89) 111/71 (84) Pulse Ox 100 100 O2 Delivery Room Air Room Air Room Air Room Air 11/25/18 11/25/18 11/25/18 11/25/18 06:22 07:00 08:00 10:32 Temp 98.8 98.8 Pulse 72 Resp 16 B/P (MAP) 126/85 (99) Pulse Ox 93 O2 Delivery Room Air Room Air Room Air Room Air 11/25/18 11/25/18 11/25/18 11:00 11:42 14:45 Temp 97.9 97.9 Pulse 73 Resp 18 B/P (MAP) 123/73 (90) Pulse Ox 96 O2 Delivery Room Air Room Air Room Air Intake and Output 11/24/18 11/24/18 11/25/18 15:01 23:01 07:01 Output Total 360 ml 200 ml Balance -360 ml -200 ml HAYDEN REVELES MD Nov 25, 2018 16:27
[2018-11-25 19:00] VITALS: BP 123/82
--- NOTE | 2018-11-25 20:20 | NUR ---
No output from chest tube during this shift.
[2018-11-25 23:00] VITALS: BP 116/81
[2018-11-26] VITALS (11 sets, daily range): BP systolic 119–146; BP diastolic 73–87
[2018-11-26] MEDS: HYDROcodone/APAP 10/325 1 TAB TABLET PO PRN ×3 (03:58→19:18)
[2018-11-26] MEDS ORDERED: ONDANSETRON PF 4 MG/2 ML VIAL. IV PRN (07:00)
[2018-11-26] MEDS ORDERED: LIDOCAINE 1% PF 2 ML VIAL. ID PRN (07:00)
[2018-11-26] MEDS ORDERED: fentaNYL PF VIAL 100 MCG/2 ML VIAL IV PRN (07:00)
[2018-11-26] MEDS ORDERED: MORPHINE SULFATE 4 MG/ML VIAL. IV PRN (07:00)
[2018-11-26] MEDS ORDERED: PROCHLORPERAZINE 10 MG/2 ML VIAL. IV PRN (07:00)
[2018-11-26] MEDS ORDERED: IV RINGERS,LACTATED 1000ML 1,000 ML IV SCH (07:00)
[2018-11-26] MEDS ORDERED: HYDROmorphone 2 MG/ML VIAL IV PRN (07:00)
[2018-11-26] MEDS: PANTOPRAZOLE 40 MG TABLET.DR. PO SCH (07:30)
[2018-11-26] MEDS: DOCUSATE SODIUM 100 MG CAPSULE. PO SCH (09:00)
--- NOTE | 2018-11-26 09:38 | RAD ---
Single view of the chest. 11/26/2018 8:36 AM Indication: Pneumothorax Comparison: Chest radiograph, yesterday Findings: Right thoracostomy tube similar position. Persistent small right apical pneumothorax. Right chest wall subcutaneous air has decreased. Mild bibasilar opacities have developed in the interim. Favor atelectasis over infiltrate. Heart size is normal. Bony thorax is unchanged. IMPRESSION: 1.Small right pneumothorax with thoracostomy tube in place, similar to prior study. 2. Development of mild bibasilar opacities. Favor atelectasis over infiltrate. Electronically signed by: Robin Bledsoe MD (11/26/2018 9:34 AM) [id number]
--- NOTE | 2018-11-26 09:43 | PDOC ---
PULMONARY PROGRESS NOTES Subjective no soa, some cw pain Vitals Vital Signs Date Time Temp Pulse Resp B/P (MAP) Pulse Ox O2 Delivery O2 Flow Rate FiO2 11/26/18 08:01 Room Air 11/26/18 07:00 97.5 63 18 127/78 (94) 96 97.5 11/26/18 03:58 2.0 General: Alert, No acute distress Lungs: Other (decrease bs) Cardiovascular: S1 Abdomen: Soft Neuro Exam: Alert Extremities: No Edema Skin: Warm Medications Active Scripts Medications Dose Route/Sig Max Daily Dose Days Date Category Levsin-Sl (Hyoscyamine Sulfate) 0.125 Mg Tab.subl 1 Tab SL PRN Q4HRS PRN 06/13/18 Rx Zofran (Ondansetron Hcl) 4 Mg Tablet 1 Tab PO Q8HRS PRN 06/13/18 Rx Pepcid (Famotidine) 20 Mg Tablet 20 Mg PO BID 06/13/18 Rx [place] 5-325 Tablet (Acetaminophen/Hydrocodone Bitart) 1 Each Tablet 1 Tab PO PRN Q6HRS PRN 10/26/16 Rx Protonix (Pantoprazole Sodium) 40 Mg Tablet.dr 40 Mg PO DAILY 10/26/16 Rx Impression . 1. Spontaneous Rt pneumothorax. First episode with persistent large air leak and small persistent right apical PTX/ large apical bleb 2. Chronic obstructive pulmonary disease, unknown FEV1. Plan . 1. Continue chest tube placement/ suction/ no change in cxr. 2. We will obtain an alpha 1antitrypsin as OP 3. CT chest C/W APICAL BLEB 4. Given the large size of his blebs and the persistent large air leak, thoracic surgery consulted. R VATS, wedge resection of blebs and mechanical pleurodesis is indicated and scheduled for today.. d/w ESHA Hernandez MD Nov 26, 2018 09:43
[2018-11-26] MEDS ORDERED: SURGICEL HEMOSTAT 4X8 EACH. ONE (09:46)
[2018-11-26] MEDS ORDERED: LIDOCAINE 1% PF 30 ML VIAL. ONE (09:46)
[2018-11-26] MEDS ORDERED: BUPIVACAINE MPF 0.25% 30 ML VIAL. ONE (09:46)
--- NOTE | 2018-11-26 10:20 | NUR ---
Pt to OR by bed at this time. Report given to RONI Chery. Patient, Nurse Tarring Machine Operator and Miri informed of Dr Mari plan to transfer Pt to a higher level of care after surgery.
[2018-11-26] MEDS ORDERED: MIDAZOLAM HCL/PF 2 MG/2 ML VIAL. ONE (10:28)
[2018-11-26] MEDS ORDERED: ROCURONIUM 100 MG/10 ML VIAL. ONE (10:28)
[2018-11-26] MEDS ORDERED: fentaNYL PF VIAL 250 MCG/5 ML VIAL ONE (10:29)
[2018-11-26] MEDS ORDERED: LIDOCAINE 2% PF 2ML VIAL. ONE ×2 (10:51)
[2018-11-26] MEDS ORDERED: ceFAZolin 2GM PREMIX 2 GM/50 ML BAG IV ONE (11:00)
--- NOTE | 2018-11-26 11:59 | NUR ---
SW following for discharge planning. RN advised pt is having a surgery to repair a whole in pt's lung. RN anticipates pt will be transferred to a different floor. SW will continue to follow.
[2018-11-26] MEDS ORDERED: SEVOFLURANE 61 TO 120 MINUTES. IH ONE (12:19)
[2018-11-26] MEDS ORDERED: GLYCOPYRROLATE 1 MG/5 ML VIAL. ONE (12:19)
[2018-11-26] MEDS ORDERED: NEOSTIGMINE 10 MG/10 ML VIAL. ONE ×2 (12:19→12:47)
[2018-11-26] MEDS ORDERED: DEXAMETHASONE SOD PHOS 20 MG/5 ML VIAL. ONE (12:25)
[2018-11-26] MEDS ORDERED: PROPOFOL 20 ML IV ONE (12:25)
[2018-11-26] MEDS ORDERED: PHENYLEPHRINE in 0.9% NACL PF 1 MG/10 ML SYRINGE. IV ONE (12:25)
[2018-11-26] MEDS ORDERED: ONDANSETRON PF 4 MG/2 ML VIAL. ONE (12:25)
[2018-11-26] MEDS ORDERED: LIDOCAINE 2% PF 5 ML VIAL. ONE (12:25)
--- NOTE | 2018-11-26 13:01 | PDOC ---
BRIEF OPERATIVE NOTE Date: Nov 26, 2018 Pre-Op Diagnosis Spontaneous right pneumothorax Bullous lung disease Post-Op Diagnosis Spontaneous right pneumothorax Bullous lung disease Procedure Performed Right Video-Assisted thoracoscopy, wedge resection of right upper lobe x2, wedge resection of right middle lobe x1 and mechanical pleurodesis Surgeon Aidee Cameron MD, FACS Grinder Set Up Operator [employer] MARGARITA Pedersen Anesthesiologist Dr Lewis Anesthesia Type: General Blood Loss 30 mls IV Fluid 700 mls Urine Output N/A Specimens Obtained Right upper lobe wedge x2, right middle lobe wedge x1 Findings Large ruptured apical blebs, smaller blebs in the middle lobe Complications None AIDEE CAMERON MD Nov 26, 2018 13:01
--- NOTE | 2018-11-26 13:02 | PDOC4 ---
Operative Note Operative Note Date Nov 26, 2018 Preoperative diagnosis Spontaneous right pneumothorax Bullous lung disease Postoperative diagnosis Spontaneous right pneumothorax Bullous lung disease Procedure performed Right Video-Assisted thoracoscopy, wedge resection of right upper lobe x2, wedge resection of right middle lobe x1 and mechanical pleurodesis Surgeon Aidee Cameron MD, FACS Signal Intelligence Analyst MARGARITA Pedersen Anesthesiologist Dr Lewis Anesthesia type General Blood loss 30 mls IV fluids 700 mls Urine output N/A Specimens obtained Right upper lobe wedge x2, right middle lobe wedge x1 Findings Large ruptured apical blebs, smaller blebs in the middle lobe Complications None Indication 43-year-old male, who presented on 11/22/18 with a spontaneous R pneumothorax. A right chest tube was placed. The lung expanded but he had a persistent large air leak. CT also showed large apical blebs. This is his first ever PTX. Given the large size of his blebs and the persistent large air leak, a R VATS, wedge resection of blebs and mechanical pleurodesis was indicated. Operation The patient's identity was confirmed using two unique identifies. The right chest was marked. The patient was transferred to the operating room and placed initially in supine position. An arterial line was inserted. The airway was secured with a double lumen ET tube. The patient was then placed in the left lateral decubitus position with the right side up. The right chest was prepped and draped in usual sterile surgical fashion. The previously placed chest tube was prepped into the field but removed once I confirmed adequate right lung isolation. A timeout was then performed. The right lung was isolated. Access to the pleural cavity was gained by placing a 12 mm port in the 7th intercostal space in the midaxillary line. Two additional 1 cm working ports were placed in the fourth intercostal space at the anterior axillary line and the fifth intercostal space at the anterior axillary line. The thoracoscope was inserted in the pleural cavity which was inspected. Multiple large blebs were identified at the apex of the right upper lobe. One large bleb was ruptured. I performed a single wedge resection of the apex of the right upper lobe which contained the bullae. The resection was performed using four greem loads of the 60 mm echelon stapler. The specimen was removed with an Endo Catch bag and sent to pathology. 2 more areas, one from the right upper lobe and one from the right middle lobe which contained blebs were also wedged using two green loads of the 60 mm echelon stapler. These 2 specimens were also removed with the Endo Catch bag. The pleural cavity was inspected for hemostasis and no bleeding was identified. I then proceeded with mechanical pleurodesis. The anterior, lateral,posterior and apical surfaces of the parietal pleura were scraped using a Bovie pad. A 24 [place] straight chest tube was then placed through the middle working port and secured with a No 2 silk stitch. The tube was connected to a Pleur-evac at -20 cm water suction. Anesthesia was then asked to ventilate the right lung, thus confirming with direct visualization that the lung had fully expanded. 30 mls of 1/2 marcaine with 1% lidocaine was injected into the port sites for local anesthesia. The remaining 2 ports were closed with an 0 Vicryl for the fascia, followed by 2-0 Vicryl for the subcutaneous tissues. The epidermis was reapproximated with 4-0 Monocryl. Dermabond was applied to all incisions and a sterile dressing onto the chest tube. At the end of procedure the instrument, sponge and needle counts were correct. Anesthesia was reversed, the patient was extubated and transferred to PACU in stable condition having tolerated the procedure well. AIDEE CAMERON MD Nov 26, 2018 13:02
[2018-11-26] MEDS ORDERED: SEVOFLURANE > 120 MINUTES. IH ONE (13:32)
[2018-11-26] MEDS ORDERED: fentaNYL PF VIAL 100 MCG/2 ML VIAL ONE (13:55)
[2018-11-26] MEDS: fentaNYL PF VIAL 100 MCG/2 ML VIAL IV PRN ×2 (14:06→14:17)
[2018-11-26] MEDS ORDERED: MEPERIDINE PF 25 MG/ML VIAL. ONE (14:08)
[2018-11-26] MEDS ORDERED: MEPERIDINE PF 25 MG/ML VIAL. IM PRN (14:15)
[2018-11-26] MEDS ORDERED: MEPERIDINE PF 25 MG/ML VIAL. IV PRN (14:15)
--- NOTE | 2018-11-26 14:54 | RAD ---
Portable chest, 11/26/2018, 1:46 PM: HISTORY: Postop evaluation Comparison is made to a study from earlier the same day. A new right chest tube is in place extending into the right apical region. No definite pneumothorax is currently seen. There is a faint suture line projected over the lateral aspect of the right mid to lower lung. There is now mild infiltrate in the medial aspect of the right upper lobe with faint underlying suture lines evident. The left chest is clear. No significant pleural fluid is seen. The heart size is normal. IMPRESSION: 1. A new right chest tube is in place with no significant pneumothorax identified. 2. Postsurgical changes in the right lung with mild infiltrate medially in the right upper lobe. Electronically signed by: Julio C Vega MD (11/26/2018 2:49 PM) [facility]
--- NOTE | 2018-11-26 15:22 | NUR ---
This nurse notified that Pt will be going from PACU to room 248. Report given to RONI Diaz. Belongings taken to new room by CUSTOMER SUPPORT ANALYST. Attempted to call Pt's spouse to notify of transfer, no answer.
--- NOTE | 2018-11-26 17:44 | PDOC ---
PROGRESS NOTES Chief Complaint Chief Complaint awaiting sx today. no issues. History of Present Illness History of Present Illness A/P: Right sided pneumothorax - Spontaneous, resolution with chest tube placement. aprec pulm. alpha 1 AT normal. adjusted pain meds for pleuritic pain. s/p Right Video-Assisted thoracoscopy, wedge resection of right upper lobe x2, wedge resection of right middle lobe x1 and mechanical pleurodesis. aprec CT sx Chronic asthmatic bronchitis - agree he needs smoking cessation Smoker - counseled on cessation h/o PUD - with bleeding requiring transfusion, will use SCDs, GI PPx FEN - General diet PPX - SCDs, GI PPX FULL CODE Inpatient for surgery. Appreciate pulmonary and CT sx consultation Vitals Vitals Vital Signs Date Time Temp Pulse Resp B/P (MAP) Pulse Ox O2 Delivery O2 Flow Rate FiO2 11/26/18 16:45 98 146/81 (102) 11/26/18 15:30 98.9 12 99 Room Air 98.9 11/26/18 15:10 3 Physical Exam General: Alert, Oriented X3, No acute distress Heart: Regular rate, Normal S1, Normal S2 Lungs: Other (decrease bs) Abdomen: Soft, No tenderness Extremities: No edema Skin: No significant lesion Assessment and Plan Assessmemt and Plan Problems Medical Problems: (1) Chest pain Status: Acute Comment Review of Relevant I have reviewed the following items neida (where applicable) has been applied. Medications Current Medications Aspirin (Children'S Aspirin) 324 mg 1X ONCE PO Last administered on 11/22/18at 07:45; Start 11/22/18 at 07:45; Stop 11/22/18 at 07:46; Status DC Fentanyl Citrate (Fentanyl 2ml Vial) 50 mcg 1X ONCE IV Last administered on 11/22/18at 08:27; Start 11/22/18 at 08:15; Stop 11/22/18 at 08:16; Status DC Lidocaine/ Epinephrine (LIDOCAINE 1%-EPI 1:100,000 Multi-Dose) 20 ml 1X ONCE INJ Last administered on 11/22/18at 08:25; Start 11/22/18 at 08:15; Stop 11/22/18 at 08:16; Status DC Midazolam HCl (Versed) 2 mg 1X ONCE IV Last administered on 11/22/18at 08:26; Start 11/22/18 at 08:15; Stop 11/22/18 at 08:16; Status DC Morphine Sulfate (Morphine Sulfate) 4 mg PRN Q2HR PRN IV PAIN Last administered on 11/23/18at 06:11; Start 11/22/18 at 09:00; Stop 11/23/18 at 08:59; Status DC Info (FLU VACCINE SCREEN per RX) 1 each PRN 1X PRN MC SEE COMMENTS; Start at 16:30; Status Cancel Influenza Virus Vaccine (Afluria Trivalent [id number] Syringe) 0.5 ml ONCE ONCE VAX IM ; Start 11/22/18 at 16:45; Stop 11/22/18 at 16:46; Status DC Famotidine (Pepcid) 20 mg BID PO Last administered on 11/23/18at 08:48; Start 11/22/18 at 21:00; Stop 11/23/18 at 11:15; Status DC Acetaminophen/ Hydrocodone Bitart (Lortab 5/325) 1 tab PRN Q6HRS PRN PO MODERATE PAIN Last administered on 11/24/18at 08:17; Start 11/22/18 at 21:00; Stop 11/24/18 at 12:24; Status DC Pantoprazole Sodium (Protonix) 40 mg DAILYAC PO Last administered on 11/25/18at 06:18; Start 11/23/18 at 07:30 Hyoscyamine (Anaspaz) 0.125 mg PRN Q4HRS PRN PO STOMACH CRAMPING; Start at 21:15 Ondansetron HCl (Zofran Odt) 4 mg PRN Q8HRS PRN PO NAUSEA/VOMITING 1ST CHOICE; Start 11/22/18 at 21:15 Acetaminophen/ Hydrocodone Bitart (Lortab 5/325) 1 tab PRN Q4HRS PRN PO MODERATE PAIN Last administered on 11/24/18at 19:29; Start 11/24/18 at 12:30; Stop 11/24/18 at 22:17; Status DC Polyethylene Glycol (miraLAX PACKET) 17 gm PRN DAILY PRN PO CONSTIPATION; Start 11/24/18 at 17:15 Docusate Sodium (Colace) 100 mg DAILY PO Last administered on 11/25/18at 10:30; Start 11/24/18 at 17:30 Acetaminophen/ Hydrocodone Bitart (Lortab 10/325) 1 tab PRN Q4HRS PRN PO PAIN Last administered on 11/26/18at 08:01; Start 11/24/18 at 22:15 Ondansetron HCl (Zofran) 4 mg PRN Q6HRS PRN IV NAUSEA/VOMITING; Start 11/26/18 at 07:00; Stop 11/26/18 at 18:00 Fentanyl Citrate (Fentanyl 2ml Vial) 25 mcg PRN Q5MIN PRN IV MILD PAIN; Start 11/26/18 at 07:00; Stop 11/26/18 at 18:00 Fentanyl Citrate (Fentanyl 2ml Vial) 50 mcg PRN Q5MIN PRN IV MODERATE TO SEVERE PAIN Last administered on 11/26/18at 14:17; Start 11/26/18 at 07:00; Stop 11/26/18 at 18:00 Morphine Sulfate (Morphine Sulfate) 1 mg PRN Q10MIN PRN IV SEVERE PAIN; Start 11/26/18 at 07:00; Stop 11/26/18 at 18:00 Ringer's Solution 1,000 ml @ 30 mls/hr Q24H IV Last administered on 11/26/18at 10:30; Start 11/26/18 at 07:00; Stop 11/26/18 at 18:59 Lidocaine HCl (Xylocaine-Mpf 1% 2ml Vial) 2 ml PRN 1X PRN ID IV START; Start at 07:00; Stop 11/26/18 at 18:00 Hydromorphone HCl (Dilaudid) 0.5 mg PRN Q10MIN PRN IV SEV PAIN, Second choice; Start 11/26/18 at 07:00; Stop 11/26/18 at 18:00 Prochlorperazine Edisylate (Compazine) 5 mg PACU PRN PRN IV NAUSEA, MRX1; Start 11/26/18 at 07:00; Stop 11/26/18 at 18:00 Lidocaine HCl (Xylocaine 1% Pf 30ml Vial) 30 ml STK-MED ONCE .ROUTE Last administered on 11/26/18at 12:02; Start 11/26/18 at 09:46; Stop 11/26/18 at 09:48 ; Status DC Cellulose (Surgicel Hemostat 4x8) 1 each STK-MED ONCE .ROUTE ; Start 11/26/18 at 09:46; Stop 11/26/18 at 09:48; Status DC Bupivacaine HCl (Sensorcaine Mpf 0.25%) 30 ml STK-MED ONCE .ROUTE Last administered on 11/26/18at 12:02; Start 11/26/18 at 09:46; Stop 11/26/18 at 09:48 ; Status DC Cefazolin Sodium/ Dextrose 50 ml @ 100 mls/hr 1X ONCE IV ; Start 11/26/18 at 11:30; Stop 11/26/18 at 11:59; Status DC Meperidine HCl (Demerol) 25 mg PRN Q10MIN PRN IM SHIVERING; Start 11/26/18 at 14:15; Stop 11/26/18 at 14:15; Status DC Meperidine HCl (Demerol) 12.5 mg PRN Q10MIN PRN IV SHIVERING Last administered on 11/26/18at 14:10; Start 11/26/18 at 14:15; Stop 11/26/18 at 18:00 Active Scripts Active Levsin-Sl (Hyoscyamine Sulfate) 0.125 Mg Tab.subl 1 Tab SL PRN Q4HRS PRN Zofran (Ondansetron Hcl) 4 Mg Tablet 1 Tab PO Q8HRS PRN Pepcid (Famotidine) 20 Mg Tablet 20 Mg PO BID [place] 5-325 Tablet (Acetaminophen/Hydrocodone Bitart) 1 Each Tablet 1 Tab PO PRN Q6HRS PRN Protonix (Pantoprazole Sodium) 40 Mg Tablet.dr 40 Mg PO DAILY Vitals/I & O Vital Sign - Last 24 Hours 11/25/18 11/25/18 11/25/18 11/25/18 19:00 20:00 23:00 23:50 Temp 97.7 97.5 97.7 97.5 Pulse 70 70 Resp 18 18 16 B/P (MAP) 123/82 (96) 116/81 (93) Pulse Ox 93 95 93 O2 Delivery Room Air Room Air Room Air Room Air O2 Flow Rate 2.0 11/26/18 11/26/18 11/26/18 11/26/18 00:50 03:00 03:58 04:58 Temp 97.7 97.7 Pulse 65 Resp 18 16 16 B/P (MAP) 127/84 (98) Pulse Ox 95 95 95 O2 Delivery Room Air Room Air O2 Flow Rate 2.0 2.0 11/26/18 11/26/18 11/26/18 11/26/18 07:00 08:01 08:15 09:05 Temp 97.5 97.5 Pulse 63 Resp 18 B/P (MAP) 127/78 (94) Pulse Ox 96 O2 Delivery Room Air Room Air Room Air Room Air 11/26/18 11/26/18 11/26/18 11/26/18 10:29 13:33 13:33 13:40 Temp 97.8 97.4 97.4 97.8 97.4 97.4 Pulse 66 74 78 Resp 15 17 18 B/P (MAP) 122/76 137/80 138/66 145/71 Pulse Ox 96 100 100 O2 Delivery Room Air Simple Mask Mask Simple Mask O2 Flow Rate 2.0 10 10 10 11/26/18 11/26/18 11/26/18 11/26/18 13:45 14:00 14:06 14:10 Temp 97.4 98.0 97.4 98.0 Pulse 90 88 Resp 14 16 21 23 B/P (MAP) 138/66 114/86 Pulse Ox 100 100 100 100 O2 Delivery Nasal Cannula Nasal Cannula Simple Mask Simple Mask O2 Flow Rate 3 3 10.0 10.0 11/26/18 11/26/18 11/26/18 11/26/18 14:15 14:17 14:30 14:45 Temp 98.0 98.0 98.0 98.0 98.0 98.0 Pulse 94 90 92 Resp 20 15 16 14 B/P (MAP) 114/90 128/78 127/75 Pulse Ox 100 100 100 100 O2 Delivery Nasal Cannula Nasal Cannula Nasal Cannula Nasal Cannula O2 Flow Rate 3 4.0 3 3 11/26/18 11/26/18 11/26/18 11/26/18 15:00 15:10 15:10 15:30 Temp 98.0 98.0 98.9 98.0 98.0 98.9 Pulse 90 100 107 Resp 15 15 12 B/P (MAP) 114/74 118/76 144/80 (101) Pulse Ox 100 100 99 O2 Delivery Nasal Cannula Nasal Cannula Nasal Cannula Room Air O2 Flow Rate 3 3 3 11/26/18 11/26/18 11/26/18 11/26/18 15:45 16:00 16:15 16:45 Pulse 104 92 102 98 B/P (MAP) 132/81 (98) 119/73 (88) 135/83 (100) 146/81 (102) Intake and Output 11/25/18 11/25/18 11/26/18 15:01 23:01 07:01 Intake Total 300 ml Balance 300 ml HAYDEN REVELES MD Nov 26, 2018 17:44
[2018-11-27] MEDS: HYDROcodone/APAP 10/325 1 TAB TABLET PO PRN ×4 (03:00→19:13)
[2018-11-27 03:12] VITALS: BP 118/76
[2018-11-27 07:00] VITALS: BP 120/80
[2018-11-27] MEDS: PANTOPRAZOLE 40 MG TABLET.DR. PO SCH (07:40)
[2018-11-27] MEDS: DOCUSATE SODIUM 100 MG CAPSULE. PO SCH (07:40)
--- NOTE | 2018-11-27 08:29 | RAD ---
PORTABLE CHEST 1V Clinical Indication: PTX Comparison: AP chest, prior day. Findings: Right chest tube is stable. The cardiomediastinal silhouette is normal. Redemonstrated suture material in the medial right lung apex. Adjacent airspace opacities have decreased. There is no appreciable pneumothorax. No pleural effusion is appreciated. No acute bone abnormality. Right lateral chest wall subcutaneous air. IMPRESSION: 1. Stable right chest tube. No definite pneumothorax. 2. Airspace opacities in the medial right upper lobe have decreased. Electronically signed by: Amado Diaz MD (11/27/2018 8:25 AM) [facility]
[2018-11-27 11:00] VITALS: BP 118/80
--- NOTE | 2018-11-27 11:24 | PDOC ---
Progress Note Subjective Subjective Doing well, pain well controlled, on room air. 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 Doing well, pain well controlled, on room air. No air leak, right lung up on CXR Plan Plan of Care Keep chest tube to suction for another day for pleurodesis to work Should be able to d/c tube and then d/c home tomorrow vs Thursday AIDEE CAMERON MD Nov 27, 2018 11:24
--- NOTE | 2018-11-27 12:41 | PDOC ---
PULMONARY PROGRESS NOTES Subjective no soa, s/ p Right Video-Assisted thoracoscopy, wedge resection of right upper lobe x2, wedge resection of right middle lobe x1 and mechanical pleurodesis Vitals Vital Signs Date Time Temp Pulse Resp B/P (MAP) Pulse Ox O2 Delivery O2 Flow Rate FiO2 11/27/18 11:00 98.8 84 32 118/80 (93) 96 Room Air 98.8 11/27/18 08:40 1.0 General: Alert, No acute distress Lungs: Other (decrease bs) Cardiovascular: S1 Abdomen: Soft Neuro Exam: Alert Extremities: No Edema Skin: Warm Labs Laboratory Tests Test 11/27/18 08:13 Glucose (Fingerstick) 97 mg/dL (70-99) Laboratory Tests Test 11/27/18 08:13 Glucose (Fingerstick) 97 mg/dL (70-99) Medications Active Scripts Medications Dose Route/Sig Max Daily Dose Days Date Category Levsin-Sl (Hyoscyamine Sulfate) 0.125 Mg Tab.subl 1 Tab SL PRN Q4HRS PRN 06/13/18 Rx Zofran (Ondansetron Hcl) 4 Mg Tablet 1 Tab PO Q8HRS PRN 06/13/18 Rx Pepcid (Famotidine) 20 Mg Tablet 20 Mg PO BID 06/13/18 Rx [place] 5-325 Tablet (Acetaminophen/Hydrocodone Bitart) 1 Each Tablet 1 Tab PO PRN Q6HRS PRN 10/26/16 Rx Protonix (Pantoprazole Sodium) 40 Mg Tablet.dr 40 Mg PO DAILY 10/26/16 Rx Comments CXR 11/27 NO PTX Impression . 1. Spontaneous Rt pneumothorax. First episode with persistent large air leak and small persistent right apical PTX/ large apical bleb. 2. s/ p Right Video-Assisted thoracoscopy, wedge resection of right upper lobe x2, wedge resection of right middle lobe x1 and mechanical pleurodesis 3. Chronic obstructive pulmonary disease, unknown FEV1. Plan . 1. Tiny air leak . CXR with no PTX 2. Chest tube management per DR Smallwood 3. Pain control 4. follow cxr ESHA NELSON MD Nov 27, 2018 12:41
[2018-11-27] MEDS: POLYETHYLENE GLYCOL 3350 17 GM PACKET. PO PRN (13:38)
[2018-11-27 15:00] VITALS: BP 119/79
[2018-11-27 17:23] LABS: BASO % 1 % (0-3); EOS # 0.1 x10^3/uL (0.0-0.7); EOS % 2 % (0-3); HEMATOCRIT 41.7 % (39.0-53.0); HEMOGLOBIN 14.1 g/dL (13.0-17.5); LYMPH # 1.5 x10^3/uL (1.0-4.8); LYMPH % 23 % (24-48); MEAN CORPUSCULAR HEMOGLOBIN 33 pg (25-35); MEAN CORPUSCULAR HGB CONC 34 g/dL (31-37); MEAN CORPUSCULAR VOLUME 97 fL (79-100); MONO # 0.6 x10^3/uL (0.0-1.1); MONO % 9 % (0-9); NEUT # 4.3 x10^3uL (1.8-7.7); NEUT % 66 % (31-73); PLATELET COUNT 248 x10^3/uL (140-400); RED BLOOD COUNT 4.31 x10^6/uL (4.30-5.70); RED CELL DISTRIBUTION WIDTH 13.3 % (11.5-14.5); WHITE BLOOD COUNT 6.5 x10^3/uL (4.0-11.0)
[2018-11-27 17:37] LABS: ALBUMIN 3.2 g/dL (3.4-5.0); ALBUMIN/GLOBULIN RATIO 0.8 (1.0-1.7); CALCIUM 8.9 mg/dL (8.5-10.1); CREATININE 0.7 mg/dL (0.7-1.3); GFR 148.9; POTASSIUM 4.3 mmol/L (3.5-5.1); TOTAL BILIRUBIN 0.2 mg/dL (0.2-1.0); TOTAL PROTEIN 7.1 g/dL (6.4-8.2)
[2018-11-27 19:15] VITALS: BP 138/95
--- NOTE | 2018-11-27 19:30 | NUR ---
Assessment completed vss poc explained pt c/o pain to chest tube site pt medicated will resume care and continuje to monitor pt.
[2018-11-27 23:00] VITALS: BP 111/74
--- NOTE | 2018-11-27 23:17 | PDOC ---
PROGRESS NOTES Chief Complaint Chief Complaint awaiting sx today. no issues. History of Present Illness History of Present Illness A/P: Right sided pneumothorax - Spontaneous, resolution with chest tube placement. aprec pulm. alpha 1 AT normal. adjusted pain meds for pleuritic pain. s/p Right Video-Assisted thoracoscopy, wedge resection of right upper lobe x2, wedge resection of right middle lobe x1 and mechanical pleurodesis. aprec CT sx Chronic asthmatic bronchitis - agree he needs smoking cessation Smoker - counseled on cessation h/o PUD - with bleeding requiring transfusion, will use SCDs, GI PPx FEN - General diet PPX - SCDs, GI PPX FULL CODE Appreciate pulmonary and CT sx consultation Vitals Vitals Vital Signs Date Time Temp Pulse Resp B/P (MAP) Pulse Ox O2 Delivery O2 Flow Rate FiO2 11/27/18 20:13 16 96 Room Air 11/27/18 19:30 1.0 11/27/18 19:15 98.6 87 138/95 (109) 98.6 Physical Exam Physical Exam GENERAL: NAD, Alert HEENT: PERRL, OC/OP NECK: Supple, no JVD, no LN LUNGS: Clear HEART: S1S2, no gallop, no murmur ABD: Soft, NT, no organomegaly, no rebound EXT: No edema, no cyanosis ICE 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, 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 3, no focal neurologic deficit SKIN: No rash IV: ok General: Alert, Oriented X3, No acute distress Heart: Regular rate, Normal S1, Normal S2 Lungs: Other (decrease bs) Abdomen: Soft, No tenderness Extremities: No edema Skin: No significant lesion Labs LABS Laboratory Tests Test 11/27/18 08:13 11/27/18 17:00 Glucose (Fingerstick) 97 mg/dL (70-99) White Blood Count 6.5 x10^3/uL (4.0-11.0) Red Blood Count 4.31 x10^6/uL (4.30-5.70) Hemoglobin 14.1 g/dL (13.0-17.5) Hematocrit 41.7 % (39.0-53.0) Mean Corpuscular Volume 97 fL (79-100) Mean Corpuscular Hemoglobin 33 pg (25-35) Mean Corpuscular Hemoglobin Concent 34 g/dL (31-37) Red Cell Distribution Width 13.3 % (11.5-14.5) Platelet Count 248 x10^3/uL (140-400) Neutrophils (%) (Auto) 66 % (31-73) Lymphocytes (%) (Auto) 23 % (24-48) Monocytes (%) (Auto) 9 % (0-9) Eosinophils (%) (Auto) 2 % (0-3) Basophils (%) (Auto) 1 % (0-3) Neutrophils # (Auto) 4.3 x10^3uL (1.8-7.7) Lymphocytes # (Auto) 1.5 x10^3/uL (1.0-4.8) Monocytes # (Auto) 0.6 x10^3/uL (0.0-1.1) Eosinophils # (Auto) 0.1 x10^3/uL (0.0-0.7) Basophils # (Auto) 0.0 x10^3/uL (0.0-0.2) Sodium Level 136 mmol/L (136-145) Potassium Level 4.3 mmol/L (3.5-5.1) Chloride Level 100 mmol/L (98-107) Carbon Dioxide Level 33 mmol/L (21-32) Anion Gap 3 (6-14) Blood Urea Nitrogen 21 mg/dL (8-26) Creatinine 0.7 mg/dL (0.7-1.3) Estimated GFR (Cockcroft-Gault) 148.9 BUN/Creatinine Ratio 30 (6-20) Glucose Level 123 mg/dL (70-99) Calcium Level 8.9 mg/dL (8.5-10.1) Total Bilirubin 0.2 mg/dL (0.2-1.0) Aspartate Amino Transf (AST/SGOT) 27 U/L (15-37) Alanine Aminotransferase (ALT/SGPT) 21 U/L (16-63) Alkaline Phosphatase 90 U/L (46-116) Total Protein 7.1 g/dL (6.4-8.2) Albumin 3.2 g/dL (3.4-5.0) Albumin/Globulin Ratio 0.8 (1.0-1.7) Assessment and Plan Assessmemt and Plan Problems Medical Problems: (1) Chest pain Status: Acute Comment Review of Relevant I have reviewed the following items neida (where applicable) has been applied. Labs Laboratory Tests Test 1/12/19 08:13 11/27/18 17:00 Glucose (Fingerstick) 97 mg/dL (70-99) White Blood Count 6.5 x10^3/uL (4.0-11.0) Red Blood Count 4.31 x10^6/uL (4.30-5.70) Hemoglobin 14.1 g/dL (13.0-17.5) Hematocrit 41.7 % (39.0-53.0) Mean Corpuscular Volume 97 fL (79-100) Mean Corpuscular Hemoglobin 33 pg (25-35) Mean Corpuscular Hemoglobin Concent 34 g/dL (31-37) Red Cell Distribution Width 13.3 % (11.5-14.5) Platelet Count 248 x10^3/uL (140-400) Neutrophils (%) (Auto) 66 % (31-73) Lymphocytes (%) (Auto) 23 % (24-48) Monocytes (%) (Auto) 9 % (0-9) Eosinophils (%) (Auto) 2 % (0-3) Basophils (%) (Auto) 1 % (0-3) Neutrophils # (Auto) 4.3 x10^3uL (1.8-7.7) Lymphocytes # (Auto) 1.5 x10^3/uL (1.0-4.8) Monocytes # (Auto) 0.6 x10^3/uL (0.0-1.1) Eosinophils # (Auto) 0.1 x10^3/uL (0.0-0.7) Basophils # (Auto) 0.0 x10^3/uL (0.0-0.2) Sodium Level 136 mmol/L (136-145) Potassium Level 4.3 mmol/L (3.5-5.1) Chloride Level 100 mmol/L (98-107) Carbon Dioxide Level 33 mmol/L (21-32) Anion Gap 3 (6-14) Blood Urea Nitrogen 21 mg/dL (8-26) Creatinine 0.7 mg/dL (0.7-1.3) Estimated GFR (Cockcroft-Gault) 148.9 BUN/Creatinine Ratio 30 (6-20) Glucose Level 123 mg/dL (70-99) Calcium Level 8.9 mg/dL (8.5-10.1) Total Bilirubin 0.2 mg/dL (0.2-1.0) Aspartate Amino Transf (AST/SGOT) 27 U/L (15-37) Alanine Aminotransferase (ALT/SGPT) 21 U/L (16-63) Alkaline Phosphatase 90 U/L (46-116) Total Protein 7.1 g/dL (6.4-8.2) Albumin 3.2 g/dL (3.4-5.0) Albumin/Globulin Ratio 0.8 (1.0-1.7) Laboratory Tests Test 11/27/18 08:13 11/27/18 17:00 Glucose (Fingerstick) 97 mg/dL (70-99) White Blood Count 6.5 x10^3/uL (4.0-11.0) Red Blood Count 4.31 x10^6/uL (4.30-5.70) Hemoglobin 14.1 g/dL (13.0-17.5) Hematocrit 41.7 % (39.0-53.0) Mean Corpuscular Volume 97 fL (79-100) Mean Corpuscular Hemoglobin 33 pg (25-35) Mean Corpuscular Hemoglobin Concent 34 g/dL (31-37) Red Cell Distribution Width 13.3 % (11.5-14.5) Platelet Count 248 x10^3/uL (140-400) Neutrophils (%) (Auto) 66 % (31-73) Lymphocytes (%) (Auto) 23 % (24-48) Monocytes (%) (Auto) 9 % (0-9) Eosinophils (%) (Auto) 2 % (0-3) Basophils (%) (Auto) 1 % (0-3) Neutrophils # (Auto) 4.3 x10^3uL (1.8-7.7) Lymphocytes # (Auto) 1.5 x10^3/uL (1.0-4.8) Monocytes # (Auto) 0.6 x10^3/uL (0.0-1.1) Eosinophils # (Auto) 0.1 x10^3/uL (0.0-0.7) Basophils # (Auto) 0.0 x10^3/uL (0.0-0.2) Sodium Level 136 mmol/L (136-145) Potassium Level 4.3 mmol/L (3.5-5.1) Chloride Level 100 mmol/L (98-107) Carbon Dioxide Level 33 mmol/L (21-32) Anion Gap 3 (6-14) Blood Urea Nitrogen 21 mg/dL (8-26) Creatinine 0.7 mg/dL (0.7-1.3) Estimated GFR (Cockcroft-Gault) 148.9 BUN/Creatinine Ratio 30 (6-20) Glucose Level 123 mg/dL (70-99) Calcium Level 8.9 mg/dL (8.5-10.1) Total Bilirubin 0.2 mg/dL (0.2-1.0) Aspartate Amino Transf (AST/SGOT) 27 U/L (15-37) Alanine Aminotransferase (ALT/SGPT) 21 U/L (16-63) Alkaline Phosphatase 90 U/L (46-116) Total Protein 7.1 g/dL (6.4-8.2) Albumin 3.2 g/dL (3.4-5.0) Albumin/Globulin Ratio 0.8 (1.0-1.7) Medications Current Medications Aspirin (Children'S Aspirin) 324 mg 1X ONCE PO Last administered on 11/22/18at 07:45; Start 11/22/18 at 07:45; Stop 11/22/18 at 07:46; Status DC Fentanyl Citrate (Fentanyl 2ml Vial) 50 mcg 1X ONCE IV Last administered on 11/22/18at 08:27; Start 11/22/18 at 08:15; Stop 11/22/18 at 08:16; Status DC Lidocaine/ Epinephrine (LIDOCAINE 1%-EPI 1:100,000 Multi-Dose) 20 ml 1X ONCE INJ Last administered on 11/22/18at 08:25; Start 11/22/18 at 08:15; Stop 11/22/18 at 08:16; Status DC Midazolam HCl (Versed) 2 mg 1X ONCE IV Last administered on 11/22/18at 08:26; Start 11/22/18 at 08:15; Stop 11/22/18 at 08:16; Status DC Morphine Sulfate (Morphine Sulfate) 4 mg PRN Q2HR PRN IV PAIN Last administered on 11/23/18at 06:11; Start 11/22/18 at 09:00; Stop 11/23/18 at 08:59; Status DC Info (FLU VACCINE SCREEN per RX) 1 each PRN 1X PRN MC SEE COMMENTS; Start at 16:30; Status Cancel Influenza Virus Vaccine (Afluria Trivalent 9648-9755 Syringe) 0.5 ml ONCE ONCE VAX IM ; Start 11/22/18 at 16:45; Stop 11/22/18 at 16:46; Status DC Famotidine (Pepcid) 20 mg BID PO Last administered on 11/23/18at 08:48; Start 11/22/18 at 21:00; Stop 11/23/18 at 11:15; Status DC Acetaminophen/ Hydrocodone Bitart (Lortab 5/325) 1 tab PRN Q6HRS PRN PO MODERATE PAIN Last administered on 11/24/18at 08:17; Start 11/22/18 at 21:00; Stop 11/24/18 at 12:24; Status DC Pantoprazole Sodium (Protonix) 40 mg DAILYAC PO Last administered on 11/27/18at 07:40; Start 11/23/18 at 07:30 Hyoscyamine (Anaspaz) 0.125 mg PRN Q4HRS PRN PO STOMACH CRAMPING; Start at 21:15 Ondansetron HCl (Zofran Odt) 4 mg PRN Q8HRS PRN PO NAUSEA/VOMITING 1ST CHOICE; Start 11/22/18 at 21:15 Acetaminophen/ Hydrocodone Bitart (Lortab 5/325) 1 tab PRN Q4HRS PRN PO MODERATE PAIN Last administered on 11/24/18at 19:29; Start 11/24/18 at 12:30; Stop 11/24/18 at 22:17; Status DC Polyethylene Glycol (miraLAX PACKET) 17 gm PRN DAILY PRN PO CONSTIPATION Last administered on 11/27/18at 13:38; Start 11/24/18 at 17:15 Docusate Sodium (Colace) 100 mg DAILY PO Last administered on 11/27/18at 07:40; Start 11/24/18 at 17:30 Acetaminophen/ Hydrocodone Bitart (Lortab 10/325) 1 tab PRN Q4HRS PRN PO PAIN Last administered on 11/27/18at 19:13; Start 11/24/18 at 22:15 Ondansetron HCl (Zofran) 4 mg PRN Q6HRS PRN IV NAUSEA/VOMITING; Start 11/26/18 at 07:00; Stop 11/26/18 at 18:00; Status DC Fentanyl Citrate (Fentanyl 2ml Vial) 25 mcg PRN Q5MIN PRN IV MILD PAIN; Start 11/26/18 at 07:00; Stop 11/26/18 at 18:00; Status DC Fentanyl Citrate (Fentanyl 2ml Vial) 50 mcg PRN Q5MIN PRN IV MODERATE TO SEVERE PAIN Last administered on 11/26/18at 14:17; Start 11/26/18 at 07:00; Stop 11/26/18 at 18:00; Status DC Morphine Sulfate (Morphine Sulfate) 1 mg PRN Q10MIN PRN IV SEVERE PAIN; Start 11/26/18 at 07:00; Stop 11/26/18 at 18:00; Status DC Ringer's Solution 1,000 ml @ 30 mls/hr Q24H IV Last administered on 11/26/18at 10:30; Start 11/26/18 at 07:00; Stop 11/26/18 at 18:59; Status DC Lidocaine HCl (Xylocaine-Mpf 1% 2ml Vial) 2 ml PRN 1X PRN ID IV START; Start at 07:00; Stop 11/26/18 at 18:00; Status DC Hydromorphone HCl (Dilaudid) 0.5 mg PRN Q10MIN PRN IV SEV PAIN, Second choice; Start 11/26/18 at 07:00; Stop 11/26/18 at 18:00; Status DC Prochlorperazine Edisylate (Compazine) 5 mg PACU PRN PRN IV NAUSEA, MRX1; Start 11/26/18 at 07:00; Stop 11/26/18 at 18:00; Status DC Lidocaine HCl (Xylocaine 1% Pf 30ml Vial) 30 ml STK-MED ONCE .ROUTE Last administered on 11/26/18at 12:02; Start 11/26/18 at 09:46; Stop 11/26/18 at 09:48 ; Status DC Cellulose (Surgicel Hemostat 4x8) 1 each STK-MED ONCE .ROUTE ; Start 11/26/18 at 09:46; Stop 11/26/18 at 09:48; Status DC Bupivacaine HCl (Sensorcaine Mpf 0.25%) 30 ml STK-MED ONCE .ROUTE Last administered on 11/26/18at 12:02; Start 11/26/18 at 09:46; Stop 11/26/18 at 09:48 ; Status DC Cefazolin Sodium/ Dextrose 50 ml @ 100 mls/hr 1X ONCE IV ; Start 11/26/18 at 11:30; Stop 11/26/18 at 11:59; Status DC Meperidine HCl (Demerol) 25 mg PRN Q10MIN PRN IM SHIVERING; Start 11/26/18 at 14:15; Stop 11/26/18 at 14:15; Status DC Meperidine HCl (Demerol) 12.5 mg PRN Q10MIN PRN IV SHIVERING Last administered on 11/26/18at 14:10; Start 11/26/18 at 14:15; Stop 11/26/18 at 18:00; Status DC Active Scripts Active Levsin-Sl (Hyoscyamine Sulfate) 0.125 Mg Tab.subl 1 Tab SL PRN Q4HRS PRN Zofran (Ondansetron Hcl) 4 Mg Tablet 1 Tab PO Q8HRS PRN Pepcid (Famotidine) 20 Mg Tablet 20 Mg PO BID [place] 5-325 Tablet (Acetaminophen/Hydrocodone Bitart) 1 Each Tablet 1 Tab PO PRN Q6HRS PRN Protonix (Pantoprazole Sodium) 40 Mg Tablet.dr 40 Mg PO DAILY Vitals/I & O Vital Sign - Last 24 Hours 11/26/18 11/27/18 11/27/18 11/27/18 23:41 03:00 03:12 07:00 Temp 98.3 98.3 98.6 98.3 98.3 98.6 Pulse 84 79 85 Resp 16 16 16 B/P (MAP) 134/73 (93) 118/76 (90) 120/80 (93) Pulse Ox 97 98 96 O2 Delivery Nasal Cannula Nasal Cannula Nasal Cannula Nasal Cannula O2 Flow Rate 1.0 1.0 1.0 2.0 11/27/18 11/27/18 11/27/18 11/27/18 07:35 07:40 08:40 09:23 Resp 16 16 Pulse Ox 98 96 O2 Delivery Nasal Cannula Nasal Cannula Room Air O2 Flow Rate 1.0 1.0 1.0 1/12/19 1/12/19 1/12/19 1/12/19 11:00 13:36 15:00 19:13 Temp 98.8 99.2 98.8 99.2 Pulse 84 103 Resp 32 16 24 16 B/P (MAP) 118/80 (93) 119/79 (92) Pulse Ox 96 96 94 94 O2 Delivery Room Air Room Air Room Air Room Air 11/27/18 11/27/18 11/27/18 19:15 19:30 20:13 Temp 98.6 98.6 Pulse 87 Resp 17 16 B/P (MAP) 138/95 (109) Pulse Ox 95 96 O2 Delivery Room Air Nasal Cannula Room Air O2 Flow Rate 1.0 Intake and Output 11/26/18 11/26/18 11/27/18 15:01 23:01 07:01 Intake Total 1000 ml 450 ml 210 ml Output Total 25 ml 745 ml 1275 ml Balance 975 ml -295 ml -1065 ml LOPEZ SPEAR MD Nov 27, 2018 23:17
[2018-11-28] MEDS: HYDROcodone/APAP 10/325 1 TAB TABLET PO PRN ×4 (01:43→18:00)
[2018-11-28 03:05] VITALS: BP 122/76
[2018-11-28] MEDS: PANTOPRAZOLE 40 MG TABLET.DR. PO SCH (06:40)
[2018-11-28 07:40] VITALS: BP 117/78
--- NOTE | 2018-11-28 08:20 | RAD ---
PORTABLE CHEST 1V Clinical Indication: PTX Comparison: AP chest, prior day. Findings: Right chest tube is stable. Suture material medial right lung apex. Opacity adjacent to the suture material is stable. Lungs are otherwise clear. No pneumothorax. The cardiomediastinal silhouette is normal. No pleural effusion is appreciated. No acute bone abnormality. IMPRESSION: Stable right chest tube. No pneumothorax. Electronically signed by: Amado Diaz MD (11/28/2018 8:15 AM) [facility]
[2018-11-28] MEDS: POLYETHYLENE GLYCOL 3350 17 GM PACKET. PO PRN (08:59)
[2018-11-28] MEDS: DOCUSATE SODIUM 100 MG CAPSULE. PO SCH (08:59)
--- NOTE | 2018-11-28 10:41 | PDOC ---
PULMONARY PROGRESS NOTES Subjective no soa, s/ p Right Video-Assisted thoracoscopy, wedge resection of right upper lobe x2, wedge resection of right middle lobe x1 and mechanical pleurodesis Vitals Vital Signs Date Time Temp Pulse Resp B/P (MAP) Pulse Ox O2 Delivery O2 Flow Rate FiO2 11/28/18 07:45 16 100 Room Air 11/28/18 07:40 98.1 82 117/78 (91) 98.1 11/27/18 19:30 1.0 General: Alert, No acute distress Lungs: Other (decrease bs) Cardiovascular: S1 Abdomen: Soft Neuro Exam: Alert Extremities: No Edema Skin: Warm Labs Laboratory Tests Test 11/27/18 08:13 11/27/18 17:00 Glucose (Fingerstick) 97 mg/dL (70-99) White Blood Count 6.5 x10^3/uL (4.0-11.0) Red Blood Count 4.31 x10^6/uL (4.30-5.70) Hemoglobin 14.1 g/dL (13.0-17.5) Hematocrit 41.7 % (39.0-53.0) Mean Corpuscular Volume 97 fL (79-100) Mean Corpuscular Hemoglobin 33 pg (25-35) Mean Corpuscular Hemoglobin Concent 34 g/dL (31-37) Red Cell Distribution Width 13.3 % (11.5-14.5) Platelet Count 248 x10^3/uL (140-400) Neutrophils (%) (Auto) 66 % (31-73) Lymphocytes (%) (Auto) 23 % (24-48) Monocytes (%) (Auto) 9 % (0-9) Eosinophils (%) (Auto) 2 % (0-3) Basophils (%) (Auto) 1 % (0-3) Neutrophils # (Auto) 4.3 x10^3uL (1.8-7.7) Lymphocytes # (Auto) 1.5 x10^3/uL (1.0-4.8) Monocytes # (Auto) 0.6 x10^3/uL (0.0-1.1) Eosinophils # (Auto) 0.1 x10^3/uL (0.0-0.7) Basophils # (Auto) 0.0 x10^3/uL (0.0-0.2) Sodium Level 136 mmol/L (136-145) Potassium Level 4.3 mmol/L (3.5-5.1) Chloride Level 100 mmol/L (98-107) Carbon Dioxide Level 33 mmol/L (21-32) Anion Gap 3 (6-14) Blood Urea Nitrogen 21 mg/dL (8-26) Creatinine 0.7 mg/dL (0.7-1.3) Estimated GFR (Cockcroft-Gault) 148.9 BUN/Creatinine Ratio 30 (6-20) Glucose Level 123 mg/dL (70-99) Calcium Level 8.9 mg/dL (8.5-10.1) Total Bilirubin 0.2 mg/dL (0.2-1.0) Aspartate Amino Transf (AST/SGOT) 27 U/L (15-37) Alanine Aminotransferase (ALT/SGPT) 21 U/L (16-63) Alkaline Phosphatase 90 U/L (46-116) Total Protein 7.1 g/dL (6.4-8.2) Albumin 3.2 g/dL (3.4-5.0) Albumin/Globulin Ratio 0.8 (1.0-1.7) Laboratory Tests Test 11/27/18 17:00 White Blood Count 6.5 x10^3/uL (4.0-11.0) Red Blood Count 4.31 x10^6/uL (4.30-5.70) Hemoglobin 14.1 g/dL (13.0-17.5) Hematocrit 41.7 % (39.0-53.0) Mean Corpuscular Volume 97 fL (79-100) Mean Corpuscular Hemoglobin 33 pg (25-35) Mean Corpuscular Hemoglobin Concent 34 g/dL (31-37) Red Cell Distribution Width 13.3 % (11.5-14.5) Platelet Count 248 x10^3/uL (140-400) Neutrophils (%) (Auto) 66 % (31-73) Lymphocytes (%) (Auto) 23 % (24-48) Monocytes (%) (Auto) 9 % (0-9) Eosinophils (%) (Auto) 2 % (0-3) Basophils (%) (Auto) 1 % (0-3) Neutrophils # (Auto) 4.3 x10^3uL (1.8-7.7) Lymphocytes # (Auto) 1.5 x10^3/uL (1.0-4.8) Monocytes # (Auto) 0.6 x10^3/uL (0.0-1.1) Eosinophils # (Auto) 0.1 x10^3/uL (0.0-0.7) Basophils # (Auto) 0.0 x10^3/uL (0.0-0.2) Sodium Level 136 mmol/L (136-145) Potassium Level 4.3 mmol/L (3.5-5.1) Chloride Level 100 mmol/L (98-107) Carbon Dioxide Level 33 mmol/L (21-32) Anion Gap 3 (6-14) Blood Urea Nitrogen 21 mg/dL (8-26) Creatinine 0.7 mg/dL (0.7-1.3) Estimated GFR (Cockcroft-Gault) 148.9 BUN/Creatinine Ratio 30 (6-20) Glucose Level 123 mg/dL (70-99) Calcium Level 8.9 mg/dL (8.5-10.1) Total Bilirubin 0.2 mg/dL (0.2-1.0) Aspartate Amino Transf (AST/SGOT) 27 U/L (15-37) Alanine Aminotransferase (ALT/SGPT) 21 U/L (16-63) Alkaline Phosphatase 90 U/L (46-116) Total Protein 7.1 g/dL (6.4-8.2) Albumin 3.2 g/dL (3.4-5.0) Albumin/Globulin Ratio 0.8 (1.0-1.7) Medications Active Scripts Medications Dose Route/Sig Max Daily Dose Days Date Category Levsin-Sl (Hyoscyamine Sulfate) 0.125 Mg Tab.subl 1 Tab SL PRN Q4HRS PRN 06/13/18 Rx Zofran (Ondansetron Hcl) 4 Mg Tablet 1 Tab PO Q8HRS PRN 06/13/18 Rx Pepcid (Famotidine) 20 Mg Tablet 20 Mg PO BID 06/13/18 Rx [place] 5-325 Tablet (Acetaminophen/Hydrocodone Bitart) 1 Each Tablet 1 Tab PO PRN Q6HRS PRN 10/26/16 Rx Protonix (Pantoprazole Sodium) 40 Mg Tablet.dr 40 Mg PO DAILY 10/26/16 Rx Comments CXR 11/28 NO PTX Impression . 1. Spontaneous Rt pneumothorax. First episode with persistent large air leak and small persistent right apical PTX/ large apical bleb on ct 2. s/ p Right Video-Assisted thoracoscopy, wedge resection of right upper lobe x2, wedge resection of right middle lobe x1 and mechanical pleurodesis 3. Chronic obstructive pulmonary disease, unknown FEV1. Plan . 1. No air leak . CXR with no PTX 2. Chest tube management per DR Smallwood 3. Pain control 4. follow cxr ESHA NELSON MD Nov 28, 2018 10:41
[2018-11-28 10:54] VITALS: BP 109/81
[2018-11-28] MEDS ORDERED: POLYETHYLENE GLYCOL 3350 17 GM PACKET. PO PRN (13:00)
[2018-11-28] MEDS ORDERED: SENNOSIDES 8.6 MG TABLET PO PRN (13:00)
[2018-11-28] MEDS ORDERED: MAGNESIUM CITRATE 296 ML SOLUTION. PO ONE (13:00)
--- NOTE | 2018-11-28 13:20 | PDOC ---
PROGRESS NOTES Chief Complaint Chief Complaint awaiting sx today. no issues. History of Present Illness History of Present Illness A/P: Right sided pneumothorax - Spontaneous, resolution with chest tube placement. aprec pulm. alpha 1 AT normal. adjusted pain meds for pleuritic pain. s/p Right Video-Assisted thoracoscopy, wedge resection of right upper lobe x2, wedge resection of right middle lobe x1 and mechanical pleurodesis. appp CT sx reccs Chronic asthmatic bronchitis - agree he needs smoking cessation Smoker - counseled on cessation h/o PUD - with bleeding requiring transfusion, will use SCDs, GI PPx Start aggressive bowel regimien due to use of narcotics for pain and no BM to date FEN - General diet PPX - SCDs, GI PPX FULL CODE Appreciate pulmonary and CT sx consultation Vitals Vitals Vital Signs Date Time Temp Pulse Resp B/P (MAP) Pulse Ox O2 Delivery O2 Flow Rate FiO2 11/28/18 11:56 16 97 Room Air 11/28/18 10:54 98.6 92 109/81 (90) 98.6 11/27/18 19:30 1.0 Physical Exam Physical Exam GENERAL: NAD, Alert HEENT: PERRL, OC/OP NECK: Supple, no JVD, no LN LUNGS: Clear HEART: S1S2, no gallop, no murmur ABD: Soft, NT, no organomegaly, no rebound EXT: No edema, no cyanosis [employer]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: Alert, oriented x 3, no focal neurologic deficit SKIN: No rash IV: ok General: Alert, Oriented X3, No acute distress Heart: Regular rate, Normal S1, Normal S2 Lungs: Other (decrease bs) Abdomen: Soft, No tenderness Extremities: No edema Skin: No significant lesion Labs LABS Laboratory Tests Test 11/27/18 17:00 White Blood Count 6.5 x10^3/uL (4.0-11.0) Red Blood Count 4.31 x10^6/uL (4.30-5.70) Hemoglobin 14.1 g/dL (13.0-17.5) Hematocrit 41.7 % (39.0-53.0) Mean Corpuscular Volume 97 fL (79-100) Mean Corpuscular Hemoglobin 33 pg (25-35) Mean Corpuscular Hemoglobin Concent 34 g/dL (31-37) Red Cell Distribution Width 13.3 % (11.5-14.5) Platelet Count 248 x10^3/uL (140-400) Neutrophils (%) (Auto) 66 % (31-73) Lymphocytes (%) (Auto) 23 % (24-48) Monocytes (%) (Auto) 9 % (0-9) Eosinophils (%) (Auto) 2 % (0-3) Basophils (%) (Auto) 1 % (0-3) Neutrophils # (Auto) 4.3 x10^3uL (1.8-7.7) Lymphocytes # (Auto) 1.5 x10^3/uL (1.0-4.8) Monocytes # (Auto) 0.6 x10^3/uL (0.0-1.1) Eosinophils # (Auto) 0.1 x10^3/uL (0.0-0.7) Basophils # (Auto) 0.0 x10^3/uL (0.0-0.2) Sodium Level 136 mmol/L (136-145) Potassium Level 4.3 mmol/L (3.5-5.1) Chloride Level 100 mmol/L (98-107) Carbon Dioxide Level 33 mmol/L (21-32) Anion Gap 3 (6-14) Blood Urea Nitrogen 21 mg/dL (8-26) Creatinine 0.7 mg/dL (0.7-1.3) Estimated GFR (Cockcroft-Gault) 148.9 BUN/Creatinine Ratio 30 (6-20) Glucose Level 123 mg/dL (70-99) Calcium Level 8.9 mg/dL (8.5-10.1) Total Bilirubin 0.2 mg/dL (0.2-1.0) Aspartate Amino Transf (AST/SGOT) 27 U/L (15-37) Alanine Aminotransferase (ALT/SGPT) 21 U/L (16-63) Alkaline Phosphatase 90 U/L (46-116) Total Protein 7.1 g/dL (6.4-8.2) Albumin 3.2 g/dL (3.4-5.0) Albumin/Globulin Ratio 0.8 (1.0-1.7) Assessment and Plan Assessmemt and Plan Problems Medical Problems: (1) Chest pain Status: Acute Comment Review of Relevant I have reviewed the following items neida (where applicable) has been applied. Labs Laboratory Tests Test 11/27/18 08:13 11/27/18 17:00 Glucose (Fingerstick) 97 mg/dL (70-99) White Blood Count 6.5 x10^3/uL (4.0-11.0) Red Blood Count 4.31 x10^6/uL (4.30-5.70) Hemoglobin 14.1 g/dL (13.0-17.5) Hematocrit 41.7 % (39.0-53.0) Mean Corpuscular Volume 97 fL (79-100) Mean Corpuscular Hemoglobin 33 pg (25-35) Mean Corpuscular Hemoglobin Concent 34 g/dL (31-37) Red Cell Distribution Width 13.3 % (11.5-14.5) Platelet Count 248 x10^3/uL (140-400) Neutrophils (%) (Auto) 66 % (31-73) Lymphocytes (%) (Auto) 23 % (24-48) Monocytes (%) (Auto) 9 % (0-9) Eosinophils (%) (Auto) 2 % (0-3) Basophils (%) (Auto) 1 % (0-3) Neutrophils # (Auto) 4.3 x10^3uL (1.8-7.7) Lymphocytes # (Auto) 1.5 x10^3/uL (1.0-4.8) Monocytes # (Auto) 0.6 x10^3/uL (0.0-1.1) Eosinophils # (Auto) 0.1 x10^3/uL (0.0-0.7) Basophils # (Auto) 0.0 x10^3/uL (0.0-0.2) Sodium Level 136 mmol/L (136-145) Potassium Level 4.3 mmol/L (3.5-5.1) Chloride Level 100 mmol/L (98-107) Carbon Dioxide Level 33 mmol/L (21-32) Anion Gap 3 (6-14) Blood Urea Nitrogen 21 mg/dL (8-26) Creatinine 0.7 mg/dL (0.7-1.3) Estimated GFR (Cockcroft-Gault) 148.9 BUN/Creatinine Ratio 30 (6-20) Glucose Level 123 mg/dL (70-99) Calcium Level 8.9 mg/dL (8.5-10.1) Total Bilirubin 0.2 mg/dL (0.2-1.0) Aspartate Amino Transf (AST/SGOT) 27 U/L (15-37) Alanine Aminotransferase (ALT/SGPT) 21 U/L (16-63) Alkaline Phosphatase 90 U/L (46-116) Total Protein 7.1 g/dL (6.4-8.2) Albumin 3.2 g/dL (3.4-5.0) Albumin/Globulin Ratio 0.8 (1.0-1.7) Laboratory Tests Test 11/27/18 17:00 White Blood Count 6.5 x10^3/uL (4.0-11.0) Red Blood Count 4.31 x10^6/uL (4.30-5.70) Hemoglobin 14.1 g/dL (13.0-17.5) Hematocrit 41.7 % (39.0-53.0) Mean Corpuscular Volume 97 fL (79-100) Mean Corpuscular Hemoglobin 33 pg (25-35) Mean Corpuscular Hemoglobin Concent 34 g/dL (31-37) Red Cell Distribution Width 13.3 % (11.5-14.5) Platelet Count 248 x10^3/uL (140-400) Neutrophils (%) (Auto) 66 % (31-73) Lymphocytes (%) (Auto) 23 % (24-48) Monocytes (%) (Auto) 9 % (0-9) Eosinophils (%) (Auto) 2 % (0-3) Basophils (%) (Auto) 1 % (0-3) Neutrophils # (Auto) 4.3 x10^3uL (1.8-7.7) Lymphocytes # (Auto) 1.5 x10^3/uL (1.0-4.8) Monocytes # (Auto) 0.6 x10^3/uL (0.0-1.1) Eosinophils # (Auto) 0.1 x10^3/uL (0.0-0.7) Basophils # (Auto) 0.0 x10^3/uL (0.0-0.2) Sodium Level 136 mmol/L (136-145) Potassium Level 4.3 mmol/L (3.5-5.1) Chloride Level 100 mmol/L (98-107) Carbon Dioxide Level 33 mmol/L (21-32) Anion Gap 3 (6-14) Blood Urea Nitrogen 21 mg/dL (8-26) Creatinine 0.7 mg/dL (0.7-1.3) Estimated GFR (Cockcroft-Gault) 148.9 BUN/Creatinine Ratio 30 (6-20) Glucose Level 123 mg/dL (70-99) Calcium Level 8.9 mg/dL (8.5-10.1) Total Bilirubin 0.2 mg/dL (0.2-1.0) Aspartate Amino Transf (AST/SGOT) 27 U/L (15-37) Alanine Aminotransferase (ALT/SGPT) 21 U/L (16-63) Alkaline Phosphatase 90 U/L (46-116) Total Protein 7.1 g/dL (6.4-8.2) Albumin 3.2 g/dL (3.4-5.0) Albumin/Globulin Ratio 0.8 (1.0-1.7) Medications Current Medications Aspirin (Children'S Aspirin) 324 mg 1X ONCE PO Last administered on 11/22/18at 07:45; Start 11/22/18 at 07:45; Stop 11/22/18 at 07:46; Status DC Fentanyl Citrate (Fentanyl 2ml Vial) 50 mcg 1X ONCE IV Last administered on 11/22/18at 08:27; Start 11/22/18 at 08:15; Stop 11/22/18 at 08:16; Status DC Lidocaine/ Epinephrine (LIDOCAINE 1%-EPI 1:100,000 Multi-Dose) 20 ml 1X ONCE INJ Last administered on 11/22/18at 08:25; Start 11/22/18 at 08:15; Stop 11/22/18 at 08:16; Status DC Midazolam HCl (Versed) 2 mg 1X ONCE IV Last administered on 11/22/18at 08:26; Start 11/22/18 at 08:15; Stop 11/22/18 at 08:16; Status DC Morphine Sulfate (Morphine Sulfate) 4 mg PRN Q2HR PRN IV PAIN Last administered on 11/23/18at 06:11; Start 11/22/18 at 09:00; Stop 11/23/18 at 08:59; Status DC Info (FLU VACCINE SCREEN per RX) 1 each PRN 1X PRN MC SEE COMMENTS; Start at 16:30; Status Cancel Influenza Virus Vaccine (Afluria Trivalent 1035-6370 Syringe) 0.5 ml ONCE ONCE VAX IM ; Start 11/22/18 at 16:45; Stop 11/22/18 at 16:46; Status DC Famotidine (Pepcid) 20 mg BID PO Last administered on 11/23/18at 08:48; Start 11/22/18 at 21:00; Stop 11/23/18 at 11:15; Status DC Acetaminophen/ Hydrocodone Bitart (Lortab 5/325) 1 tab PRN Q6HRS PRN PO MODERATE PAIN Last administered on 11/24/18at 08:17; Start 11/22/18 at 21:00; Stop 11/24/18 at 12:24; Status DC Pantoprazole Sodium (Protonix) 40 mg DAILYAC PO Last administered on 11/28/18at 06:40; Start 11/23/18 at 07:30 Hyoscyamine (Anaspaz) 0.125 mg PRN Q4HRS PRN PO STOMACH CRAMPING; Start at 21:15 Ondansetron HCl (Zofran Odt) 4 mg PRN Q8HRS PRN PO NAUSEA/VOMITING 1ST CHOICE; Start 11/22/18 at 21:15 Acetaminophen/ Hydrocodone Bitart (Lortab 5/325) 1 tab PRN Q4HRS PRN PO MODERATE PAIN Last administered on 11/24/18at 19:29; Start 11/24/18 at 12:30; Stop 11/24/18 at 22:17; Status DC Polyethylene Glycol (miraLAX PACKET) 17 gm PRN DAILY PRN PO CONSTIPATION Last administered on 11/28/18at 08:59; Start 11/24/18 at 17:15; Stop 11/28/18 at 12:53 ; Status DC Docusate Sodium (Colace) 100 mg DAILY PO Last administered on 11/28/18at 08:59; Start 11/24/18 at 17:30 Acetaminophen/ Hydrocodone Bitart (Lortab 10/325) 1 tab PRN Q4HRS PRN PO PAIN Last administered on 11/28/18at 11:56; Start 11/24/18 at 22:15 Ondansetron HCl (Zofran) 4 mg PRN Q6HRS PRN IV NAUSEA/VOMITING; Start 11/26/18 at 07:00; Stop 11/26/18 at 18:00; Status DC Fentanyl Citrate (Fentanyl 2ml Vial) 25 mcg PRN Q5MIN PRN IV MILD PAIN; Start 11/26/18 at 07:00; Stop 11/26/18 at 18:00; Status DC Fentanyl Citrate (Fentanyl 2ml Vial) 50 mcg PRN Q5MIN PRN IV MODERATE TO SEVERE PAIN Last administered on 11/26/18at 14:17; Start 11/26/18 at 07:00; Stop 11/26/18 at 18:00; Status DC Morphine Sulfate (Morphine Sulfate) 1 mg PRN Q10MIN PRN IV SEVERE PAIN; Start 11/26/18 at 07:00; Stop 11/26/18 at 18:00; Status DC Ringer's Solution 1,000 ml @ 30 mls/hr Q24H IV Last administered on 11/26/18at 10:30; Start 11/26/18 at 07:00; Stop 11/26/18 at 18:59; Status DC Lidocaine HCl (Xylocaine-Mpf 1% 2ml Vial) 2 ml PRN 1X PRN ID IV START; Start at 07:00; Stop 11/26/18 at 18:00; Status DC Hydromorphone HCl (Dilaudid) 0.5 mg PRN Q10MIN PRN IV SEV PAIN, Second choice; Start 11/26/18 at 07:00; Stop 11/26/18 at 18:00; Status DC Prochlorperazine Edisylate (Compazine) 5 mg PACU PRN PRN IV NAUSEA, MRX1; Start 11/26/18 at 07:00; Stop 11/26/18 at 18:00; Status DC Lidocaine HCl (Xylocaine 1% Pf 30ml Vial) 30 ml STK-MED ONCE .ROUTE Last administered on 11/26/18at 12:02; Start 11/26/18 at 09:46; Stop 11/26/18 at 09:48 ; Status DC Cellulose (Surgicel Hemostat 4x8) 1 each STK-MED ONCE .ROUTE ; Start 11/26/18 at 09:46; Stop 11/26/18 at 09:48; Status DC Bupivacaine HCl (Sensorcaine Mpf 0.25%) 30 ml STK-MED ONCE .ROUTE Last administered on 11/26/18at 12:02; Start 11/26/18 at 09:46; Stop 11/26/18 at 09:48 ; Status DC Cefazolin Sodium/ Dextrose 50 ml @ 100 mls/hr 1X ONCE IV ; Start 11/26/18 at 11:30; Stop 11/26/18 at 11:59; Status DC Meperidine HCl (Demerol) 25 mg PRN Q10MIN PRN IM SHIVERING; Start 11/26/18 at 14:15; Stop 11/26/18 at 14:15; Status DC Meperidine HCl (Demerol) 12.5 mg PRN Q10MIN PRN IV SHIVERING Last administered on 11/26/18at 14:10; Start 11/26/18 at 14:15; Stop 11/26/18 at 18:00; Status DC Polyethylene Glycol (miraLAX PACKET) 17 gm PRN BID PRN PO CONSTIPATION; Start 11/28/18 at 13:00 Sennosides (Senna) 17.2 mg PRN BID PRN PO CONSTIPATION; Start 11/28/18 at 13:00 Magnesium Citrate (Citroma) 296 ml 1X ONCE PO ; Start 11/28/18 at 13:00; Stop 11/28/18 at 13:01; Status DC Active Scripts Active Levsin-Sl (Hyoscyamine Sulfate) 0.125 Mg Tab.subl 1 Tab SL PRN Q4HRS PRN Zofran (Ondansetron Hcl) 4 Mg Tablet 1 Tab PO Q8HRS PRN Pepcid (Famotidine) 20 Mg Tablet 20 Mg PO BID [place] 5-325 Tablet (Acetaminophen/Hydrocodone Bitart) 1 Each Tablet 1 Tab PO PRN Q6HRS PRN Protonix (Pantoprazole Sodium) 40 Mg Tablet.dr 40 Mg PO DAILY Vitals/I & O Vital Sign - Last 24 Hours 11/27/18 11/27/18 11/27/18 11/27/18 13:36 15:00 19:13 19:15 Temp 99.2 98.6 99.2 98.6 Pulse 103 87 Resp 16 24 16 17 B/P (MAP) 119/79 (92) 138/95 (109) Pulse Ox 96 94 94 95 O2 Delivery Room Air Room Air Room Air Room Air 11/27/18 11/27/18 11/28/18 11/28/18 19:30 23:00 01:43 03:05 Temp 98.0 98.3 98.0 98.3 Pulse 80 79 Resp 16 16 16 B/P (MAP) 111/74 (86) 122/76 (91) Pulse Ox 96 96 98 O2 Delivery Nasal Cannula Room Air Room Air Room Air O2 Flow Rate 1.0 11/28/18 11/28/18 11/28/18 11/28/18 06:41 07:30 07:40 07:45 Temp 98.1 98.1 Pulse 82 Resp 16 16 16 B/P (MAP) 117/78 (91) Pulse Ox 94 100 100 O2 Delivery Room Air Room Air Room Air Room Air 11/28/18 11/28/18 10:54 11:56 Temp 98.6 98.6 Pulse 92 Resp 16 16 B/P (MAP) 109/81 (90) Pulse Ox 97 97 O2 Delivery Room Air Room Air Intake and Output 11/27/18 11/27/18 11/28/18 15:01 23:01 07:01 Intake Total 1210 ml 360 ml 0 ml Output Total 200 ml 695 ml 510 ml Balance 1010 ml -335 ml -510 ml LOPEZ SPEAR MD Nov 28, 2018 13:19
--- NOTE | 2018-11-28 13:47 | PDOC ---
Progress Note Subjective Subjective Doing well, pain well controlled, on room air. No air leak, right lung up on CXR ROS ROS No nausea No vomiting No pain No rash Vital Sign Vital Signs Vital Signs Date Time Temp Pulse Resp B/P (MAP) Pulse Ox O2 Delivery O2 Flow Rate FiO2 11/28/18 11:56 16 97 Room Air 11/28/18 10:54 98.6 92 109/81 (90) 98.6 11/27/18 19:30 1.0 Physical Exam PHYSICAL EXAM GENERAL: NAD, Alert HEENT: PERRL, OC/OP NECK: Supple, no JVD, no LN LUNGS: Clear HEART: S1S2, no gallop, no murmur ABD: Soft, NT, no organomegaly, no rebound EXT: No edema, no cyanosis SHANK STITCHER: Alert, oriented x 3, no focal neurologic deficit SKIN: No rash IV: ok Labs Lab Laboratory Tests Test 11/27/18 17:00 White Blood Count 6.5 x10^3/uL (4.0-11.0) Red Blood Count 4.31 x10^6/uL (4.30-5.70) Hemoglobin 14.1 g/dL (13.0-17.5) Hematocrit 41.7 % (39.0-53.0) Mean Corpuscular Volume 97 fL (79-100) Mean Corpuscular Hemoglobin 33 pg (25-35) Mean Corpuscular Hemoglobin Concent 34 g/dL (31-37) Red Cell Distribution Width 13.3 % (11.5-14.5) Platelet Count 248 x10^3/uL (140-400) Neutrophils (%) (Auto) 66 % (31-73) Lymphocytes (%) (Auto) 23 % (24-48) Monocytes (%) (Auto) 9 % (0-9) Eosinophils (%) (Auto) 2 % (0-3) Basophils (%) (Auto) 1 % (0-3) Neutrophils # (Auto) 4.3 x10^3uL (1.8-7.7) Lymphocytes # (Auto) 1.5 x10^3/uL (1.0-4.8) Monocytes # (Auto) 0.6 x10^3/uL (0.0-1.1) Eosinophils # (Auto) 0.1 x10^3/uL (0.0-0.7) Basophils # (Auto) 0.0 x10^3/uL (0.0-0.2) Sodium Level 136 mmol/L (136-145) Potassium Level 4.3 mmol/L (3.5-5.1) Chloride Level 100 mmol/L (98-107) Carbon Dioxide Level 33 mmol/L (21-32) Anion Gap 3 (6-14) Blood Urea Nitrogen 21 mg/dL (8-26) Creatinine 0.7 mg/dL (0.7-1.3) Estimated GFR (Cockcroft-Gault) 148.9 BUN/Creatinine Ratio 30 (6-20) Glucose Level 123 mg/dL (70-99) Calcium Level 8.9 mg/dL (8.5-10.1) Total Bilirubin 0.2 mg/dL (0.2-1.0) Aspartate Amino Transf (AST/SGOT) 27 U/L (15-37) Alanine Aminotransferase (ALT/SGPT) 21 U/L (16-63) Alkaline Phosphatase 90 U/L (46-116) Total Protein 7.1 g/dL (6.4-8.2) Albumin 3.2 g/dL (3.4-5.0) Albumin/Globulin Ratio 0.8 (1.0-1.7) Objective Assessment POD#2, s/p R VATS, wedge resection x3 and mechanical pleurodesis for spontaneous PTX with large persistent air leak and large bullous disease. Doing well, pain well controlled, on room air. No air leak, right lung up on CXR Plan Plan of Care Keep chest tube to suction for another day for pleurodesis to work while in bed OK to take off suction to ambulate Will d/c tube tomorrow and then OK to d/c home AIDEE CAMERON MD Nov 28, 2018 13:47
[2018-11-28 14:14] LABS: HEMOGLOBIN 14.7 g/dL (13.0-17.5); RED BLOOD COUNT 4.39 x10^6/uL (4.30-5.70); RED CELL DISTRIBUTION WIDTH 12.9 % (11.5-14.5); WHITE BLOOD COUNT 5.9 x10^3/uL (4.0-11.0)
[2018-11-28 14:26] LABS: ALBUMIN 3.2 g/dL (3.4-5.0); ALBUMIN/GLOBULIN RATIO 0.8 (1.0-1.7); CALCIUM 9.1 mg/dL (8.5-10.1); CREATININE 0.7 mg/dL (0.7-1.3); GFR 148.9; MAGNESIUM 1.9 mg/dL (1.8-2.4); POTASSIUM 4.4 mmol/L (3.5-5.1); TOTAL BILIRUBIN 0.3 mg/dL (0.2-1.0); TOTAL PROTEIN 7.3 g/dL (6.4-8.2)
[2018-11-28 14:50] VITALS: BP 113/71
[2018-11-28 19:10] VITALS: BP 126/70
[2018-11-28 23:30] VITALS: BP 105/72
[2018-11-29 03:21] VITALS: BP 110/79
[2018-11-29] MEDS: HYDROcodone/APAP 10/325 1 TAB TABLET PO PRN ×2 (03:36→07:20)
[2018-11-29 07:00] VITALS: BP 104/69
--- NOTE | 2018-11-29 08:24 | RAD ---
Portable chest, 11/29/2018: HISTORY: Follow-up pneumothorax Comparison is made to yesterday's study. The heart size and pulmonary vascularity are normal. The right chest tube is unchanged in position. No significant recurrent pneumothorax is identified. There are stable mild postsurgical densities medially in the right upper lobe with associated surgical material. There is minimal linear atelectasis or scarring in the left base laterally. There is no evidence of pleural fluid. IMPRESSION: No evidence of recurrent pneumothorax. Electronically signed by: Julio C Vega MD (11/29/2018 8:19 AM) [facility]
[2018-11-29] MEDS: DOCUSATE SODIUM 100 MG CAPSULE. PO SCH (08:26)
[2018-11-29] MEDS: PANTOPRAZOLE 40 MG TABLET.DR. PO SCH (08:27)
--- NOTE | 2018-11-29 10:58 | PDOC ---
PROGRESS NOTES Chief Complaint Chief Complaint chest pain, hypoxia, acute Right sided pneumothorax - Spontaneous, pleurodesis. appp CT sx reccs Chronic asthmatic bronchitis - Smoker - cessation planned h/o PUD - History of Present Illness History of Present Illness still has chest tube pneumo resolution with chest tube placement. aprec pulm. alpha 1 AT normal. adjusted pain meds for pleuritic pain. s/p Right Video-Assisted thoracoscopy, wedge resection of right upper lobe x2, wedge resection of right middle lobe x1 and mechanical may try to DC soon, if adam with chest tube out I have started working on his [email or web address] paperwork today, works at [employer] Vitals Vital Signs Date Time Temp Pulse Resp B/P (MAP) Pulse Ox O2 Delivery O2 Flow Rate FiO2 11/29/18 08:20 16 Room Air 11/29/18 07:20 95 11/29/18 07:00 99.1 75 104/69 (81) 99.1 11/29/18 03:36 1.0 Physical Exam Physical Exam GENERAL: NAD, Alert HEENT: PERRL, OC/OP NECK: Supple, no JVD, no LN LUNGS: Clear HEART: S1S2, no gallop, no murmur ABD: Soft, NT, no organomegaly, no rebound EXT: No edema, no cyanosis MOUSE BREEDER: Alert, oriented x 3, no focal neurologic deficit SKIN: No rash IV: ok General: Alert, Oriented X3, No acute distress Heart: Regular rate, Normal S1, Normal S2 Lungs: Other (decrease bs) Abdomen: Normal bowel sounds, Soft, No tenderness Extremities: No edema Skin: No rashes, No significant lesion Labs LABS Laboratory Tests Test 11/28/18 14:00 White Blood Count 5.9 x10^3/uL (4.0-11.0) Red Blood Count 4.39 x10^6/uL (4.30-5.70) Hemoglobin 14.7 g/dL (13.0-17.5) Hematocrit 42.0 % (39.0-53.0) Mean Corpuscular Volume 96 fL (79-100) Mean Corpuscular Hemoglobin 34 pg (25-35) Mean Corpuscular Hemoglobin Concent 35 g/dL (31-37) Red Cell Distribution Width 12.9 % (11.5-14.5) Platelet Count 260 x10^3/uL (140-400) Sodium Level 136 mmol/L (136-145) Potassium Level 4.4 mmol/L (3.5-5.1) Chloride Level 101 mmol/L (98-107) Carbon Dioxide Level 31 mmol/L (21-32) Anion Gap 4 (6-14) Blood Urea Nitrogen 19 mg/dL (8-26) Creatinine 0.7 mg/dL (0.7-1.3) Estimated GFR (Cockcroft-Gault) 148.9 BUN/Creatinine Ratio 27 (6-20) Glucose Level 119 mg/dL (70-99) Calcium Level 9.1 mg/dL (8.5-10.1) Magnesium Level 1.9 mg/dL (1.8-2.4) Total Bilirubin 0.3 mg/dL (0.2-1.0) Aspartate Amino Transf (AST/SGOT) 26 U/L (15-37) Alanine Aminotransferase (ALT/SGPT) 21 U/L (16-63) Alkaline Phosphatase 91 U/L (46-116) Total Protein 7.3 g/dL (6.4-8.2) Albumin 3.2 g/dL (3.4-5.0) Albumin/Globulin Ratio 0.8 (1.0-1.7) Review of Systems Review of Systems weaknss, chest pain Assessment and Plan Assessmemt and Plan Problems Medical Problems: (1) Chest pain Status: Acute Comment Review of Relevant I have reviewed the following items neida (where applicable) has been applied. Labs Laboratory Tests Test 11/27/18 17:00 11/28/18 14:00 White Blood Count 6.5 x10^3/uL (4.0-11.0) 5.9 x10^3/uL (4.0-11.0) Red Blood Count 4.31 x10^6/uL (4.30-5.70) 4.39 x10^6/uL (4.30-5.70) Hemoglobin 14.1 g/dL (13.0-17.5) 14.7 g/dL (13.0-17.5) Hematocrit 41.7 % (39.0-53.0) 42.0 % (39.0-53.0) Mean Corpuscular Volume 97 fL (79-100) 96 fL (79-100) Mean Corpuscular Hemoglobin 33 pg (25-35) 34 pg (25-35) Mean Corpuscular Hemoglobin Concent 34 g/dL (31-37) 35 g/dL (31-37) Red Cell Distribution Width 13.3 % (11.5-14.5) 12.9 % (11.5-14.5) Platelet Count 248 x10^3/uL (140-400) 260 x10^3/uL (140-400) Neutrophils (%) (Auto) 66 % (31-73) Lymphocytes (%) (Auto) 23 % (24-48) Monocytes (%) (Auto) 9 % (0-9) Eosinophils (%) (Auto) 2 % (0-3) Basophils (%) (Auto) 1 % (0-3) Neutrophils # (Auto) 4.3 x10^3uL (1.8-7.7) Lymphocytes # (Auto) 1.5 x10^3/uL (1.0-4.8) Monocytes # (Auto) 0.6 x10^3/uL (0.0-1.1) Eosinophils # (Auto) 0.1 x10^3/uL (0.0-0.7) Basophils # (Auto) 0.0 x10^3/uL (0.0-0.2) Sodium Level 136 mmol/L (136-145) 136 mmol/L (136-145) Potassium Level 4.3 mmol/L (3.5-5.1) 4.4 mmol/L (3.5-5.1) Chloride Level 100 mmol/L (98-107) 101 mmol/L (98-107) Carbon Dioxide Level 33 mmol/L (21-32) 31 mmol/L (21-32) Anion Gap 3 (6-14) 4 (6-14) Blood Urea Nitrogen 21 mg/dL (8-26) 19 mg/dL (8-26) Creatinine 0.7 mg/dL (0.7-1.3) 0.7 mg/dL (0.7-1.3) Estimated GFR (Cockcroft-Gault) 148.9 148.9 BUN/Creatinine Ratio 30 (6-20) 27 (6-20) Glucose Level 123 mg/dL (70-99) 119 mg/dL (70-99) Calcium Level 8.9 mg/dL (8.5-10.1) 9.1 mg/dL (8.5-10.1) Total Bilirubin 0.2 mg/dL (0.2-1.0) 0.3 mg/dL (0.2-1.0) Aspartate Amino Transf (AST/SGOT) 27 U/L (15-37) 26 U/L (15-37) Alanine Aminotransferase (ALT/SGPT) 21 U/L (16-63) 21 U/L (16-63) Alkaline Phosphatase 90 U/L (46-116) 91 U/L (46-116) Total Protein 7.1 g/dL (6.4-8.2) 7.3 g/dL (6.4-8.2) Albumin 3.2 g/dL (3.4-5.0) 3.2 g/dL (3.4-5.0) Albumin/Globulin Ratio 0.8 (1.0-1.7) 0.8 (1.0-1.7) Magnesium Level 1.9 mg/dL (1.8-2.4) Laboratory Tests Test 11/28/18 14:00 White Blood Count 5.9 x10^3/uL (4.0-11.0) Red Blood Count 4.39 x10^6/uL (4.30-5.70) Hemoglobin 14.7 g/dL (13.0-17.5) Hematocrit 42.0 % (39.0-53.0) Mean Corpuscular Volume 96 fL (79-100) Mean Corpuscular Hemoglobin 34 pg (25-35) Mean Corpuscular Hemoglobin Concent 35 g/dL (31-37) Red Cell Distribution Width 12.9 % (11.5-14.5) Platelet Count 260 x10^3/uL (140-400) Sodium Level 136 mmol/L (136-145) Potassium Level 4.4 mmol/L (3.5-5.1) Chloride Level 101 mmol/L (98-107) Carbon Dioxide Level 31 mmol/L (21-32) Anion Gap 4 (6-14) Blood Urea Nitrogen 19 mg/dL (8-26) Creatinine 0.7 mg/dL (0.7-1.3) Estimated GFR (Cockcroft-Gault) 148.9 BUN/Creatinine Ratio 27 (6-20) Glucose Level 119 mg/dL (70-99) Calcium Level 9.1 mg/dL (8.5-10.1) Magnesium Level 1.9 mg/dL (1.8-2.4) Total Bilirubin 0.3 mg/dL (0.2-1.0) Aspartate Amino Transf (AST/SGOT) 26 U/L (15-37) Alanine Aminotransferase (ALT/SGPT) 21 U/L (16-63) Alkaline Phosphatase 91 U/L (46-116) Total Protein 7.3 g/dL (6.4-8.2) Albumin 3.2 g/dL (3.4-5.0) Albumin/Globulin Ratio 0.8 (1.0-1.7) Medications Current Medications Aspirin (Children'S Aspirin) 324 mg 1X ONCE PO Last administered on 11/22/18at 07:45; Start 11/22/18 at 07:45; Stop 11/22/18 at 07:46; Status DC Fentanyl Citrate (Fentanyl 2ml Vial) 50 mcg 1X ONCE IV Last administered on 11/22/18at 08:27; Start 11/22/18 at 08:15; Stop 11/22/18 at 08:16; Status DC Lidocaine/ Epinephrine (LIDOCAINE 1%-EPI 1:100,000 Multi-Dose) 20 ml 1X ONCE INJ Last administered on 11/22/18at 08:25; Start 11/22/18 at 08:15; Stop 11/22/18 at 08:16; Status DC Midazolam HCl (Versed) 2 mg 1X ONCE IV Last administered on 11/22/18at 08:26; Start 11/22/18 at 08:15; Stop 11/22/18 at 08:16; Status DC Morphine Sulfate (Morphine Sulfate) 4 mg PRN Q2HR PRN IV PAIN Last administered on 11/23/18at 06:11; Start 11/22/18 at 09:00; Stop 11/23/18 at 08:59; Status DC Info (FLU VACCINE SCREEN per RX) 1 each PRN 1X PRN MC SEE COMMENTS; Start at 16:30; Status Cancel Influenza Virus Vaccine (Afluria Trivalent [id number] Syringe) 0.5 ml ONCE ONCE VAX IM ; Start 11/22/18 at 16:45; Stop 11/22/18 at 16:46; Status DC Famotidine (Pepcid) 20 mg BID PO Last administered on 11/23/18at 08:48; Start 11/22/18 at 21:00; Stop 11/23/18 at 11:15; Status DC Acetaminophen/ Hydrocodone Bitart (Lortab 5/325) 1 tab PRN Q6HRS PRN PO MODERATE PAIN Last administered on 11/24/18 08:17; Start 11/22/18 at 21:00; Stop 11/24/18 at 12:24; Status DC Pantoprazole Sodium (Protonix) 40 mg DAILYAC PO Last administered on 11/29/18 08:27; Start 11/23/18 at 07:30 Hyoscyamine (Anaspaz) 0.125 mg PRN Q4HRS PRN PO STOMACH CRAMPING; Start at 21:15 Ondansetron HCl (Zofran Odt) 4 mg PRN Q8HRS PRN PO NAUSEA/VOMITING 1ST CHOICE; Start 11/22/18 at 21:15 Acetaminophen/ Hydrocodone Bitart (Lortab 5/325) 1 tab PRN Q4HRS PRN PO MODERATE PAIN Last administered on 11/24/18 19:29; Start 11/24/18 at 12:30; Stop 11/24/18 at 22:17; Status DC Polyethylene Glycol (miraLAX PACKET) 17 gm PRN DAILY PRN PO CONSTIPATION Last administered on 11/28/18at 08:59; Start 11/24/18 at 17:15; Stop 11/28/18 at 12:53 ; Status DC Docusate Sodium (Colace) 100 mg DAILY PO Last administered on 11/29/18at 08:26; Start 11/24/18 at 17:30 Acetaminophen/ Hydrocodone Bitart (Lortab 10/325) 1 tab PRN Q4HRS PRN PO PAIN Last administered on 11/29/18 07:20; Start 11/24/18 at 22:15 Ondansetron HCl (Zofran) 4 mg PRN Q6HRS PRN IV NAUSEA/VOMITING; Start 11/26/18 at 07:00; Stop 11/26/18 at 18:00; Status DC Fentanyl Citrate (Fentanyl 2ml Vial) 25 mcg PRN Q5MIN PRN IV MILD PAIN; Start 11/26/18 at 07:00; Stop 11/26/18 at 18:00; Status DC Fentanyl Citrate (Fentanyl 2ml Vial) 50 mcg PRN Q5MIN PRN IV MODERATE TO SEVERE PAIN Last administered on 11/26/18at 14:17; Start 11/26/18 at 07:00; Stop 11/26/18 at 18:00; Status DC Morphine Sulfate (Morphine Sulfate) 1 mg PRN Q10MIN PRN IV SEVERE PAIN; Start 11/26/18 at 07:00; Stop 11/26/18 at 18:00; Status DC Ringer's Solution 1,000 ml @ 30 mls/hr Q24H IV Last administered on 11/26/18at 10:30; Start 11/26/18 at 07:00; Stop 11/26/18 at 18:59; Status DC Lidocaine HCl (Xylocaine-Mpf 1% 2ml Vial) 2 ml PRN 1X PRN ID IV START; Start at 07:00; Stop 11/26/18 at 18:00; Status DC Hydromorphone HCl (Dilaudid) 0.5 mg PRN Q10MIN PRN IV SEV PAIN, Second choice; Start 11/26/18 at 07:00; Stop 11/26/18 at 18:00; Status DC Prochlorperazine Edisylate (Compazine) 5 mg PACU PRN PRN IV NAUSEA, MRX1; Start 11/26/18 at 07:00; Stop 11/26/18 at 18:00; Status DC Lidocaine HCl (Xylocaine 1% Pf 30ml Vial) 30 ml STK-MED ONCE .ROUTE Last administered on 11/26/18at 12:02; Start 11/26/18 at 09:46; Stop 11/26/18 at 09:48 ; Status DC Cellulose (Surgicel Hemostat 4x8) 1 each STK-MED ONCE .ROUTE ; Start 11/26/18 at 09:46; Stop 11/26/18 at 09:48; Status DC Bupivacaine HCl (Sensorcaine Mpf 0.25%) 30 ml STK-MED ONCE .ROUTE Last administered on 11/26/18at 12:02; Start 11/26/18 at 09:46; Stop 11/26/18 at 09:48 ; Status DC Cefazolin Sodium/ Dextrose 50 ml @ 100 mls/hr 1X ONCE IV ; Start 11/26/18 at 11:30; Stop 11/26/18 at 11:59; Status DC Meperidine HCl (Demerol) 25 mg PRN Q10MIN PRN IM SHIVERING; Start 11/26/18 at 14:15; Stop 11/26/18 at 14:15; Status DC Meperidine HCl (Demerol) 12.5 mg PRN Q10MIN PRN IV SHIVERING Last administered on 11/26/18at 14:10; Start 11/26/18 at 14:15; Stop 11/26/18 at 18:00; Status DC Polyethylene Glycol (miraLAX PACKET) 17 gm PRN BID PRN PO CONSTIPATION; Start 11/28/18 at 13:00 Sennosides (Senna) 17.2 mg PRN BID PRN PO CONSTIPATION Last administered on at 18:00; Start 11/28/18 at 13:00 Magnesium Citrate (Citroma) 296 ml 1X ONCE PO Last administered on 11/28/18at 13:23; Start 11/28/18 at 13:00; Stop 11/28/18 at 13:01; Status DC Cefazolin Sodium/ Dextrose (Ancef 2gm Premix) 2 gm STK-MED ONCE IV ; Start 11/26 at 11:00; Stop 11/29/18 at 08:45; Status DC Active Scripts Active Levsin-Sl (Hyoscyamine Sulfate) 0.125 Mg Tab.subl 1 Tab SL PRN Q4HRS PRN Zofran (Ondansetron Hcl) 4 Mg Tablet 1 Tab PO Q8HRS PRN Pepcid (Famotidine) 20 Mg Tablet 20 Mg PO BID [place] 5-325 Tablet (Acetaminophen/Hydrocodone Bitart) 1 Each Tablet 1 Tab PO PRN Q6HRS PRN Protonix (Pantoprazole Sodium) 40 Mg Tablet.dr 40 Mg PO DAILY Vitals/I & O Vital Sign - Last 24 Hours 11/28/18 11/28/18 11/28/18 11/28/18 11:56 14:50 18:00 19:10 Temp 98.4 97.8 98.4 97.8 Pulse 98 89 Resp 16 16 16 17 B/P (MAP) 113/71 (85) 126/70 (88) Pulse Ox 97 100 100 97 O2 Delivery Room Air Room Air Room Air Room Air O2 Flow Rate 1.0 11/28/18 11/28/18 11/29/18 11/29/18 20:00 23:30 03:21 03:36 Temp 97.9 98.1 97.9 98.1 Pulse 80 88 Resp 18 18 16 B/P (MAP) 105/72 (83) 110/79 (89) Pulse Ox 95 98 98 O2 Delivery Room Air Room Air Room Air Room Air O2 Flow Rate 1.0 11/29/18 11/29/18 11/29/18 11/29/18 04:36 07:00 07:20 08:06 Temp 99.1 99.1 Pulse 75 Resp 18 18 B/P (MAP) 104/69 (81) Pulse Ox 98 96 95 O2 Delivery Room Air Room Air Room Air 11/29/18 08:20 Resp 16 O2 Delivery Room Air Intake and Output 11/28/18 11/28/18 11/29/18 15:01 23:01 07:01 Intake Total 240 ml 200 ml Output Total 250 ml 20 ml 450 ml Balance -250 ml 220 ml -250 ml ROBSON RING MD Nov 29, 2018 10:58
--- NOTE | 2018-11-29 11:09 | PDOC ---
PULMONARY PROGRESS NOTES Subjective no soa, s/ p Right Video-Assisted thoracoscopy, wedge resection of right upper lobe x2, wedge resection of right middle lobe x1 and mechanical pleurodesis Vitals Vital Signs Date Time Temp Pulse Resp B/P (MAP) Pulse Ox O2 Delivery O2 Flow Rate FiO2 11/29/18 08:20 16 Room Air 11/29/18 07:20 95 11/29/18 07:00 99.1 75 104/69 (81) 99.1 11/29/18 03:36 1.0 General: Alert, No acute distress Lungs: Other (decrease bs) Cardiovascular: S1 Abdomen: Soft Neuro Exam: Alert Extremities: No Edema Skin: Warm Labs Laboratory Tests Test 11/27/18 17:00 11/28/18 14:00 White Blood Count 6.5 x10^3/uL (4.0-11.0) 5.9 x10^3/uL (4.0-11.0) Red Blood Count 4.31 x10^6/uL (4.30-5.70) 4.39 x10^6/uL (4.30-5.70) Hemoglobin 14.1 g/dL (13.0-17.5) 14.7 g/dL (13.0-17.5) Hematocrit 41.7 % (39.0-53.0) 42.0 % (39.0-53.0) Mean Corpuscular Volume 97 fL (79-100) 96 fL (79-100) Mean Corpuscular Hemoglobin 33 pg (25-35) 34 pg (25-35) Mean Corpuscular Hemoglobin Concent 34 g/dL (31-37) 35 g/dL (31-37) Red Cell Distribution Width 13.3 % (11.5-14.5) 12.9 % (11.5-14.5) Platelet Count 248 x10^3/uL (140-400) 260 x10^3/uL (140-400) Neutrophils (%) (Auto) 66 % (31-73) Lymphocytes (%) (Auto) 23 % (24-48) Monocytes (%) (Auto) 9 % (0-9) Eosinophils (%) (Auto) 2 % (0-3) Basophils (%) (Auto) 1 % (0-3) Neutrophils # (Auto) 4.3 x10^3uL (1.8-7.7) Lymphocytes # (Auto) 1.5 x10^3/uL (1.0-4.8) Monocytes # (Auto) 0.6 x10^3/uL (0.0-1.1) Eosinophils # (Auto) 0.1 x10^3/uL (0.0-0.7) Basophils # (Auto) 0.0 x10^3/uL (0.0-0.2) Sodium Level 136 mmol/L (136-145) 136 mmol/L (136-145) Potassium Level 4.3 mmol/L (3.5-5.1) 4.4 mmol/L (3.5-5.1) Chloride Level 100 mmol/L (98-107) 101 mmol/L (98-107) Carbon Dioxide Level 33 mmol/L (21-32) 31 mmol/L (21-32) Anion Gap 3 (6-14) 4 (6-14) Blood Urea Nitrogen 21 mg/dL (8-26) 19 mg/dL (8-26) Creatinine 0.7 mg/dL (0.7-1.3) 0.7 mg/dL (0.7-1.3) Estimated GFR (Cockcroft-Gault) 148.9 148.9 BUN/Creatinine Ratio 30 (6-20) 27 (6-20) Glucose Level 123 mg/dL (70-99) 119 mg/dL (70-99) Calcium Level 8.9 mg/dL (8.5-10.1) 9.1 mg/dL (8.5-10.1) Total Bilirubin 0.2 mg/dL (0.2-1.0) 0.3 mg/dL (0.2-1.0) Aspartate Amino Transf (AST/SGOT) 27 U/L (15-37) 26 U/L (15-37) Alanine Aminotransferase (ALT/SGPT) 21 U/L (16-63) 21 U/L (16-63) Alkaline Phosphatase 90 U/L (46-116) 91 U/L (46-116) Total Protein 7.1 g/dL (6.4-8.2) 7.3 g/dL (6.4-8.2) Albumin 3.2 g/dL (3.4-5.0) 3.2 g/dL (3.4-5.0) Albumin/Globulin Ratio 0.8 (1.0-1.7) 0.8 (1.0-1.7) Magnesium Level 1.9 mg/dL (1.8-2.4) Laboratory Tests Test 11/28/18 14:00 White Blood Count 5.9 x10^3/uL (4.0-11.0) Red Blood Count 4.39 x10^6/uL (4.30-5.70) Hemoglobin 14.7 g/dL (13.0-17.5) Hematocrit 42.0 % (39.0-53.0) Mean Corpuscular Volume 96 fL (79-100) Mean Corpuscular Hemoglobin 34 pg (25-35) Mean Corpuscular Hemoglobin Concent 35 g/dL (31-37) Red Cell Distribution Width 12.9 % (11.5-14.5) Platelet Count 260 x10^3/uL (140-400) Sodium Level 136 mmol/L (136-145) Potassium Level 4.4 mmol/L (3.5-5.1) Chloride Level 101 mmol/L (98-107) Carbon Dioxide Level 31 mmol/L (21-32) Anion Gap 4 (6-14) Blood Urea Nitrogen 19 mg/dL (8-26) Creatinine 0.7 mg/dL (0.7-1.3) Estimated GFR (Cockcroft-Gault) 148.9 BUN/Creatinine Ratio 27 (6-20) Glucose Level 119 mg/dL (70-99) Calcium Level 9.1 mg/dL (8.5-10.1) Magnesium Level 1.9 mg/dL (1.8-2.4) Total Bilirubin 0.3 mg/dL (0.2-1.0) Aspartate Amino Transf (AST/SGOT) 26 U/L (15-37) Alanine Aminotransferase (ALT/SGPT) 21 U/L (16-63) Alkaline Phosphatase 91 U/L (46-116) Total Protein 7.3 g/dL (6.4-8.2) Albumin 3.2 g/dL (3.4-5.0) Albumin/Globulin Ratio 0.8 (1.0-1.7) Medications Active Scripts Medications Dose Route/Sig Max Daily Dose Days Date Category Levsin-Sl (Hyoscyamine Sulfate) 0.125 Mg Tab.subl 1 Tab SL PRN Q4HRS PRN 06/13/18 Rx Zofran (Ondansetron Hcl) 4 Mg Tablet 1 Tab PO Q8HRS PRN 06/13/18 Rx Pepcid (Famotidine) 20 Mg Tablet 20 Mg PO BID 06/13/18 Rx [place] 5-325 Tablet (Acetaminophen/Hydrocodone Bitart) 1 Each Tablet 1 Tab PO PRN Q6HRS PRN 10/26/16 Rx Protonix (Pantoprazole Sodium) 40 Mg Tablet. 40 Mg PO DAILY 10/26/16 Rx Comments CXR 11/29 NO PTX Impression . 1. Spontaneous Rt pneumothorax. First episode with persistent large air leak and small persistent right apical PTX/ large apical bleb on ct 2. s/ p Right Video-Assisted thoracoscopy, wedge resection of right upper lobe x2, wedge resection of right middle lobe x1 and mechanical pleurodesis 3. Chronic obstructive pulmonary disease, unknown FEV1. Plan . 1. No air leak . CXR with no PTX 2. Chest tube management per DR Smallwood 3. Pain control 4. follow cxr ESHA NELSON MD Nov 29, 2018 11:09
[2018-11-29 11:18] VITALS: BP 114/71
--- NOTE | 2018-11-29 11:48 | NUR ---
SS following for discharge planning. SS reviewed pt's chart. Pt is from home. No discharge needs noted at this time. SS will continue to follow for pending discharge needs.
[2018-11-29] MEDS ORDERED: DOCU-109 PO (12:28)
[2018-11-29] MEDS ORDERED: HYDR-3164 PO (12:28)
[2018-11-29] MEDS ORDERED: IBUP-1007 PO (12:28)
[2018-11-29] MEDS ORDERED: KETOROLAC 15 MG/ML VIAL. IV ONE (12:30)
--- NOTE | 2018-11-29 12:40 | PDOC3 ---
Discharge Summary Visit Information Date of Admission: Nov 22, 2018 Date of Discharge: Nov 29, 2018 Admitting Diagnosis: chest pain Final Diagnosis chest pain, hypoxia, acute Right sided pneumothorax - Spontaneous, pleurodesis. appp CT sx reccs Chronic asthmatic bronchitis - Smoker - cessation planned h/o PUD - Problems Medical Problems: (1) Chest pain Status: Acute Brief Hospital Course Allergies Allergies Coded Allergies Type Severity Reaction Last Updated Verified No Known Drug Allergies 07/09/15 No Vital Signs Vital Signs Date Time Temp Pulse Resp B/P (MAP) Pulse Ox O2 Delivery O2 Flow Rate FiO2 11/29/18 11:18 98.7 87 18 114/71 (85) 95 Room Air 98.7 11/29/18 03:36 1.0 Lab Results Laboratory Tests Test 11/27/18 17:00 11/28/18 14:00 White Blood Count 6.5 x10^3/uL (4.0-11.0) 5.9 x10^3/uL (4.0-11.0) Red Blood Count 4.31 x10^6/uL (4.30-5.70) 4.39 x10^6/uL (4.30-5.70) Hemoglobin 14.1 g/dL (13.0-17.5) 14.7 g/dL (13.0-17.5) Hematocrit 41.7 % (39.0-53.0) 42.0 % (39.0-53.0) Mean Corpuscular Volume 97 fL (79-100) 96 fL (79-100) Mean Corpuscular Hemoglobin 33 pg (25-35) 34 pg (25-35) Mean Corpuscular Hemoglobin Concent 34 g/dL (31-37) 35 g/dL (31-37) Red Cell Distribution Width 13.3 % (11.5-14.5) 12.9 % (11.5-14.5) Platelet Count 248 x10^3/uL (140-400) 260 x10^3/uL (140-400) Neutrophils (%) (Auto) 66 % (31-73) Lymphocytes (%) (Auto) 23 % (24-48) Monocytes (%) (Auto) 9 % (0-9) Eosinophils (%) (Auto) 2 % (0-3) Basophils (%) (Auto) 1 % (0-3) Neutrophils # (Auto) 4.3 x10^3uL (1.8-7.7) Lymphocytes # (Auto) 1.5 x10^3/uL (1.0-4.8) Monocytes # (Auto) 0.6 x10^3/uL (0.0-1.1) Eosinophils # (Auto) 0.1 x10^3/uL (0.0-0.7) Basophils # (Auto) 0.0 x10^3/uL (0.0-0.2) Sodium Level 136 mmol/L (136-145) 136 mmol/L (136-145) Potassium Level 4.3 mmol/L (3.5-5.1) 4.4 mmol/L (3.5-5.1) Chloride Level 100 mmol/L (98-107) 101 mmol/L (98-107) Carbon Dioxide Level 33 mmol/L (21-32) 31 mmol/L (21-32) Anion Gap 3 (6-14) 4 (6-14) Blood Urea Nitrogen 21 mg/dL (8-26) 19 mg/dL (8-26) Creatinine 0.7 mg/dL (0.7-1.3) 0.7 mg/dL (0.7-1.3) Estimated GFR (Cockcroft-Gault) 148.9 148.9 BUN/Creatinine Ratio 30 (6-20) 27 (6-20) Glucose Level 123 mg/dL (70-99) 119 mg/dL (70-99) Calcium Level 8.9 mg/dL (8.5-10.1) 9.1 mg/dL (8.5-10.1) Total Bilirubin 0.2 mg/dL (0.2-1.0) 0.3 mg/dL (0.2-1.0) Aspartate Amino Transf (AST/SGOT) 27 U/L (15-37) 26 U/L (15-37) Alanine Aminotransferase (ALT/SGPT) 21 U/L (16-63) 21 U/L (16-63) Alkaline Phosphatase 90 U/L (46-116) 91 U/L (46-116) Total Protein 7.1 g/dL (6.4-8.2) 7.3 g/dL (6.4-8.2) Albumin 3.2 g/dL (3.4-5.0) 3.2 g/dL (3.4-5.0) Albumin/Globulin Ratio 0.8 (1.0-1.7) 0.8 (1.0-1.7) Magnesium Level 1.9 mg/dL (1.8-2.4) Laboratory Tests Test 11/28/18 14:00 White Blood Count 5.9 x10^3/uL (4.0-11.0) Red Blood Count 4.39 x10^6/uL (4.30-5.70) Hemoglobin 14.7 g/dL (13.0-17.5) Hematocrit 42.0 % (39.0-53.0) Mean Corpuscular Volume 96 fL (79-100) Mean Corpuscular Hemoglobin 34 pg (25-35) Mean Corpuscular Hemoglobin Concent 35 g/dL (31-37) Red Cell Distribution Width 12.9 % (11.5-14.5) Platelet Count 260 x10^3/uL (140-400) Sodium Level 136 mmol/L (136-145) Potassium Level 4.4 mmol/L (3.5-5.1) Chloride Level 101 mmol/L (98-107) Carbon Dioxide Level 31 mmol/L (21-32) Anion Gap 4 (6-14) Blood Urea Nitrogen 19 mg/dL (8-26) Creatinine 0.7 mg/dL (0.7-1.3) Estimated GFR (Cockcroft-Gault) 148.9 BUN/Creatinine Ratio 27 (6-20) Glucose Level 119 mg/dL (70-99) Calcium Level 9.1 mg/dL (8.5-10.1) Magnesium Level 1.9 mg/dL (1.8-2.4) Total Bilirubin 0.3 mg/dL (0.2-1.0) Aspartate Amino Transf (AST/SGOT) 26 U/L (15-37) Alanine Aminotransferase (ALT/SGPT) 21 U/L (16-63) Alkaline Phosphatase 91 U/L (46-116) Total Protein 7.3 g/dL (6.4-8.2) Albumin 3.2 g/dL (3.4-5.0) Albumin/Globulin Ratio 0.8 (1.0-1.7) Brief Hospital Course Mr. Prater is a 43 old admti with chest pain, pneumothorax found on CXR, not improved with chest tube, req CT surg, then VATS with pleurodesis on 11/26, DR. Austin, req chest tube to 11/29, did well when removed, pain better, s/p wedge resection of right upper lobe and right middle lobe x1 I have started working on his [employer] paperwork today, works at [employer] Information Condition at Discharge: Improved Follow Up: Weeks Disposition/Orders: D/C to Home Scheduled Famotidine (Pepcid) 20 Mg Tablet, 20 MG PO BID, #20 Prescribed by: LUZ NELSON D.O. on 06/13/18457 Last Action: Continued on 11/22/182055 by MANDO JEREZ MD Pantoprazole Sodium (Protonix) 40 Mg Tablet.dr, 40 MG PO DAILY, #10 Prescribed by: KATHY MADRIGAL D.O. on 10/26/16407 Last Action: Continued on 11/22/182055 by MANDO JEREZ MD Scheduled PRN Docusate Sodium (Colace) 100 Mg Capsule, 100 MG PO BID PRN for CONSTIPATION, #30 Prescribed by: ROBSON RING on 11/29/18 1228 Hydrocodone/Apap 5-325 ([place] 5-325 Tablet) 1 Each Tablet, 1 TAB PO PRN Q6HRS PRN for PAIN, #30 Ref 0 Prescribed by: ROBSON RING on 11/29/18 1228 Hyoscyamine Sulfate (Levsin-Sl) 0.125 Mg Tab.subl, 1 TAB SL PRN Q4HRS PRN for PAIN, #20 Ref 1 Prescribed by: LUZ NELSON D.O. on 06/13/18457 Last Action: Converted on 11/22/182055 by MANDO JEREZ MD Ibuprofen (Ibuprofen) 600 Mg Tablet, 600 MG PO PRN Q6HRS PRN for INFLAMMATION, # 30 Prescribed by: ROBSON RING on 11/29/18 1228 Ondansetron Hcl (Zofran) 4 Mg Tablet, 1 TAB PO Q8HRS PRN for NAUSEA, #20 Prescribed by: LUZ NELSON D.O. on 7/29/18 0458 Last Action: Converted on 11/22/182055 by MANDO JEREZ MD Patient Instructions Patient Instructions no lifting > 10 lbs 2 weeks, may try to work light duty ROBSON RING MD Nov 29, 2018 12:40
--- NOTE | 2018-11-29 12:43 | NUR ---
Discharge instructions completed with patient. All questions answered. Chest tube site care completed and explained home care. Appt made with Dr Sevilla Dec 17 at 1 pm. All questions answered at this time. Awaiting for discharge.
--- NOTE | 2018-11-29 13:09 | RAD ---
Portable chest, 11/29/2017, 12:25 PM: HISTORY: Post chest tube removal Comparison is made to the study of earlier the same day. The right chest tube has been removed. There is a tiny right apical pneumothorax. Mild unchanged postsurgical infiltrate is again noted medially in the right upper lobe. There is mild linear atelectasis in the left base. No new pulmonary abnormality is detected. No significant pleural fluid is evident. IMPRESSION: Tiny right apical pneumothorax. Electronically signed by: Julio C Vega MD (11/29/2018 1:04 PM) [facility]
--- NOTE | 2018-11-29 13:18 | PDOC ---
Progress Note Subjective Subjective Doing well, pain well controlled, on room air. 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: Alert, oriented x 3, no focal neurologic deficit SKIN: No rash IV: ok Labs Lab Laboratory Tests Test 11/28/18 14:00 White Blood Count 5.9 x10^3/uL (4.0-11.0) Red Blood Count 4.39 x10^6/uL (4.30-5.70) Hemoglobin 14.7 g/dL (13.0-17.5) Hematocrit 42.0 % (39.0-53.0) Mean Corpuscular Volume 96 fL (79-100) Mean Corpuscular Hemoglobin 34 pg (25-35) Mean Corpuscular Hemoglobin Concent 35 g/dL (31-37) Red Cell Distribution Width 12.9 % (11.5-14.5) Platelet Count 260 x10^3/uL (140-400) Sodium Level 136 mmol/L (136-145) Potassium Level 4.4 mmol/L (3.5-5.1) Chloride Level 101 mmol/L (98-107) Carbon Dioxide Level 31 mmol/L (21-32) Anion Gap 4 (6-14) Blood Urea Nitrogen 19 mg/dL (8-26) Creatinine 0.7 mg/dL (0.7-1.3) Estimated GFR (Cockcroft-Gault) 148.9 BUN/Creatinine Ratio 27 (6-20) Glucose Level 119 mg/dL (70-99) Calcium Level 9.1 mg/dL (8.5-10.1) Magnesium Level 1.9 mg/dL (1.8-2.4) Total Bilirubin 0.3 mg/dL (0.2-1.0) Aspartate Amino Transf (AST/SGOT) 26 U/L (15-37) Alanine Aminotransferase (ALT/SGPT) 21 U/L (16-63) Alkaline Phosphatase 91 U/L (46-116) Total Protein 7.3 g/dL (6.4-8.2) Albumin 3.2 g/dL (3.4-5.0) Albumin/Globulin Ratio 0.8 (1.0-1.7) Objective Assessment POD#3, s/p R VATS, wedge resection x3 and mechanical pleurodesis for spontaneous PTX with large persistent air leak and large bullous disease. Doing well, pain well controlled, on room air. No air leak, right lung up on CXR Plan Plan of Care D/c chest tube, followed by CXR D/c home F/u with me in 3 weeks (12/24/18, at 1:00pm) AIDEE CAMERON MD Nov 29, 2018 13:18
--- NOTE | 2018-11-29 13:23 | NUR ---
arrived and discharge instructions explained. taken by wheel chair out to car.
--- NOTE | 2018-11-30 09:12 | PATHOLOGY ---
[facility] Accession Number: [id number] . 01 Material submitted: . PART A: RIGHT UPPER LOBE LUNG WEDGE RESECTION PART B: RIGHT MIDDLE LOBE WEDGE PART C: RIGHT UPPER LOBE . 01 Clinical history: . Pneumothorax. . 02 Diagnosis: A. 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 . B. Lung tissue, right middle lobe wedge biopsy: - Subpleural emphysematous changes with subpleural blebs and focal chronic and eosinophilic pleuritis. . C. 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 . (JPM:samm; 11/29/2018) MBR/11/29/2018 . 02 Electronically signed: . Collins Valencia MD, Pathologist NPI- [id number] . 01 Gross description: . A. Received in formalin labeled "Prater, Abram, right upper lobe lung wedge resection" is a 46 g, 10.5 x 5.8 x 3.5 cm lung wedge resection. There are multiple staple lines ranging from 2.8-4.2 cm in length, which are located at the resection margin. The pleura is pink-red and focally hemorrhagic with multiple air-filled blebs ranging from 1.8-3.5 cm in greatest dimension. The staple lines are removed and the specimen is sectioned to reveal red-brown and focally hemorrhagic lung parenchyma without masses or nodules. Garnett Room Worker sections of the specimen are submitted in cassette A1-A3. . B. Received in formalin labeled "Prater, Abram, right middle lobe wedge" is a 5 g, 4.7 x 3.5 x 1.3 cm lung wedge resection. There is a staple line measuring 5.2 cm in length, which is located at the resection margin. The pleura is pink-red and smooth with multiple air-filled blebs ranging from 0.2-1.7 cm in greatest dimension. The staple line is removed and the specimen is sectioned to reveal pink-red and grossly unremarkable lung parenchyma without masses or nodules. Garnett Room Worker sections of the specimen are submitted in cassettes B1-B3. . C. Received in formalin labeled "Abram Prater, right upper lobe" is a 1 g, 3.8 x 1.6 x 0.6 cm lung wedge resection. There is a staple line present measuring 4.7 cm in length, which is located at the resection margin. The pleura is pink-red and smooth with multiple air-filled blebs ranging from 0.3-0.5 cm in greatest dimension. The staple line is removed and the specimen is sectioned to reveal pink-red grossly unremarkable lung parenchyma without masses or nodules. Garnett Room Worker sections are submitted in cassette C1. [place] [place] SY/SYC . 02 Pathologist provided ICD-10: J43.9, R09.1 . 02 CPT . 516766, 155278, 382719 Specimen Comment: A courtesy copy of this report has been sent to Specimen Comment: [phone], , . Specimen Comment: Report sent to , and Specimen Comment: A duplicate report has been generated due to demographic updates. Performed at: 01 [facility] [address] [facility] [address], [place] [id number] MD Jim Stallings MD Phone: [phone] Performed at: [address] [facility] [address] [place], [place] [id number] MD Collins Valencia MD Phone: [phone]
== END 2018-11-29 13:30 | disposition home or self-care (01) | DRG 165 ==
LOC: ER 07:27 → 4 NORTH 08:15 → 2 SOUTH 11-26 15:25
PROVIDERS: ADMIT Internal Medicine; ATTEND Internal Medicine
PROC: 0BBC4ZZ Excision of Right Upper Lung Lobe, Percutaneous Endoscopic Approach (ICD-10-PCS; 2018-11-26)
PROC: 0B5N4ZZ Destruction of Right Pleura, Percutaneous Endoscopic Approach (ICD-10-PCS; 2018-11-26)
PROC: 0W9930Z Drainage of Right Pleural Cavity with Drainage Device, Percutaneous Approach (ICD-10-PCS; 2018-11-26)
PROC: 0BBD4ZZ Excision of Right Middle Lung Lobe, Percutaneous Endoscopic Approach (ICD-10-PCS; principal; 2018-11-26 11:00)
PROC: 0BPQX0Z Removal of Drainage Device from Pleura, External Approach (ICD-10-PCS; 2018-11-29)
DX: J93.9 Pneumothorax, unspecified (principal); J93.82 Other air leak; F17.210 Nicotine dependence, cigarettes, uncomplicated; J44.9 Chronic obstructive pulmonary disease, unspecified; R09.02 Hypoxemia; Z82.5 Family history of asthma and other chronic lower respiratory diseases; Z87.11 Personal history of peptic ulcer disease; F12.90 Cannabis use, unspecified, uncomplicated; M54.5 Low back pain; K21.9 Gastro-esophageal reflux disease without esophagitis; J98.4 Other disorders of lung; Z79.899 Other long term (current) drug therapy; Z71.6 Tobacco abuse counseling
CPT/HCPCS: 32551; 36415; 71045; 71250; 80053; 80307; 82103; 82962; 83735; 83880; 84484; 85025; 85027; 85379; 85610; 86850; 86900; 86901; 88307; 93005; 96374; 96375; 99406; A7015; G0238; G0480; J0696; J1100; J2001; J2175; J2250; J2270; J2370; J2405; J2704; J2710; J3010; J3490; J7120; 99285-25; G0378

== ENCOUNTER 2018-12-11 20:46 | Emergency (ER) | payer BC ==
[~2018-12-11] VITALS: Ht 185.4 cm; Wt 70.3 kg
[~2018-12-11 20:46] MED LIST changes: +DOCU-109 PO; +IBUP-1007 PO; +PANT40TA3 PO; -PANT40TA77 PO
[2018-12-11 21:04] VITALS: BP 129/68
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
[2018-12-11] MEDS ORDERED: DEXAMETHASONE SOD PHOS 20 MG/5 ML VIAL. IM ONE (22:00)
[2018-12-11] MEDS ORDERED: HYDROcodone/APAP 5/325MG 1 TAB TABLET PO ONE (22:00)
[2018-12-11] MEDS ORDERED: HYDR-3164 PO (22:36)
--- NOTE | 2018-12-12 08:22 | RAD ---
CHEST PA LATERAL Clinical indications: chest pain, hx of recent chest tube COMPARISON: November 29, 2018. Findings: No acute lung infiltrate or pleural effusion or pulmonary edema or lung mass or pneumothorax is seen. The heart size, pulmonary vasculature, mediastinum and both flora are unremarkable. The osseous structures appear intact. Impression: No acute radiographic abnormality is seen. Electronically signed by: Maxx Sainz MD (12/12/2018 8:17 AM) [facility]
== END 2018-12-11 23:13 | disposition home or self-care (01) ==
LOC: ER 20:46
DX: R07.89 Other chest pain (principal); F17.200 Nicotine dependence, unspecified, uncomplicated
CPT/HCPCS: 71046; 96372; 99283; J1100

== ENCOUNTER 2019-10-10 07:03 | Inpatient (IN) | payer BC ==
[~2019-10-10] VITALS: Ht 185.4 cm; Wt 67.2 kg
[~2019-10-10 07:03] MED LIST changes: -PANT40TA3 PO; +PANT40TA77 PO
[2019-10-10] MEDS ORDERED: IV NORMAL SALINE 1000ML BAG 1,000 ML IV SCH (07:19)
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
[2019-10-10] MEDS ORDERED: FAMOTIDINE 20 MG/2 ML VIAL IVP ONE (07:30)
[2019-10-10] MEDS ORDERED: LIDO:MAALOX 1:1 20 ML SINGLE DOSE. SWSW ONE (07:30)
[2019-10-10 07:38] LABS: BASO % 1 % (0-3); EOS # 0.1 x10^3/uL (0.0-0.7); EOS % 2 % (0-3); HEMATOCRIT 43.7 % (39.0-53.0); LYMPH # 1.4 x10^3/uL (1.0-4.8); LYMPH % 35 % (24-48); MEAN CORPUSCULAR HEMOGLOBIN 33 pg (25-35); MEAN CORPUSCULAR HGB CONC 34 g/dL (31-37); MEAN CORPUSCULAR VOLUME 95 fL (79-100); MONO # 0.2 x10^3/uL (0.0-1.1); MONO % 6 % (0-9); NEUT # 2.4 x10^3/uL (1.8-7.7); NEUT % 57 % (31-73); PLATELET COUNT 236 x10^3/uL (140-400); RED BLOOD COUNT 4.59 x10^6/uL (4.30-5.70); WHITE BLOOD COUNT 4.2 x10^3/uL (4.0-11.0)
[2019-10-10 07:44] LABS: CALCIUM 8.8 mg/dL (8.5-10.1); CREATININE 0.9 mg/dL (0.7-1.3); GFR 110.9
[2019-10-10] MEDS ORDERED: ONDANSETRON PF 4 MG/2 ML VIAL. IVP ONE (07:45)
[2019-10-10 07:51] LABS: ALBUMIN 3.9 g/dL (3.4-5.0); ALBUMIN/GLOBULIN RATIO 1.1 (1.0-1.7); TOTAL BILIRUBIN 0.4 mg/dL (0.2-1.0); TOTAL PROTEIN 7.4 g/dL (6.4-8.2)
[2019-10-10] MEDS ORDERED: CONTRAST GIVEN. MC PRN (08:15)
[2019-10-10] MEDS ORDERED: IOHEXOL 300 MG/ML 100ML VIAL. IV ONE (08:15)
[2019-10-10] MEDS ORDERED: IOHEXOL 240 MG/ML 50ML VIAL. PO ONE (08:15)
[2019-10-10 08:17] LABS: BILIRUBIN,URINE NEGATIVE (NEG); CLARITY,URINE CLEAR; COLOR,URINE YELLOW; NITRITE,URINE NEGATIVE (NEG); PROTEIN,URINE NEGATIVE (NEG-TRACE)
[2019-10-10 08:21] LABS: AMPHETAMINE/METHAMPHETAMINE NEG (NEG); BARBITURATES NEG (NEG); BENZODIAZEPINES NEG (NEG); CANNABINOIDS POS (NEG); COCAINE NEG (NEG); METHADONE NEG (NEG); OPIATES NEG (NEG); PHENCYCLIDINE NEG (NEG)
--- NOTE | 2019-10-10 08:25 | EKG ---
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
[2019-10-10 08:32] LABS: BACTERIA,URINE 0 /HPF (0-FEW); RBC,URINE 0 /HPF (0-2); SQUAMOUS EPITHELIAL CELL,UR FEW /LPF
--- NOTE | 2019-10-10 09:40 | RAD ---
CT abdomen and pelvis with contrast PQRS statement: CT scans at this facility use dose reduction including either automated exposure control, iterative reconstructions, and /or weight based radiation dosing via mA and kV modification when appropriate to reduce radiation dose to as low as reasonably achievable. HISTORY: Upper abdominal pain. TECHNIQUE: Helical CT imaging abdomen and pelvis with 75 mL Omnipaque 300 intravenous contrast. COMPARISON: CT abdomen and pelvis June 13, 2018. Abdomen findings: 3 mm nodule right middle lobe along the major fissure image 1 new from the prior study. 3 cm cyst left renal lower pole stable. Small subcentimeter hypodensities of the liver too small to characterize most likely cysts, stable. Stable wedge-shaped hypodensity anterior subcapsular left hepatic lobe likely focal fat. Gallbladder, pancreas, adrenals, spleen unremarkable. There is a perforation at the region of the anterior wall gastric antrum/duodenal bulb image 30 with surrounding edema and 2 subcentimeter foci of extraluminal gas, no abscess evident. Oral contrast protrudes into a small outpouching possibly an ulcer inferiorly. Large volume of stool. Appendix poorly visualized. Lung bases and bones are unremarkable. Pelvis findings: No fluid or adenopathy. Bladder, prostate, rectum and bones are unremarkable. IMPRESSION: 1. Perforation of the gastroduodenal junction with 2 small foci of extraluminal gas and surrounding edema suspicious for a perforated ulcer near the region of the gastric pylorus or duodenal bulb. 2. 3 mm solid nodule right middle lobe due to prior imaging. Consider follow-up CT imaging in 12 months to document stability. FOR INTERNAL CODING PURPOSES Critical result: Findings discussed with DR. COLLEEN HU at 10/10/2019 9:37 AM. RESULT CODE: (C) Electronically signed by: Ronald Ruiz MD (10/10/2019 9:37 AM) [facility]
[2019-10-10] MEDS ORDERED: PANTOPRAZOLE IV PUSH 40 MG VIAL. IVP ONE (09:45)
[2019-10-10] MEDS ORDERED: PIPERACILLIN/TAZOBACTAM 4.5 GM in IV NORMAL SALINE 100ML 100 ML IV ONE (09:45)
[2019-10-10] MEDS: PANTOPRAZOLE SODIUM IV DRIP 80 MG in IV NORMAL SALINE 100ML 100 ML IV SCH ×2 (10:39→21:21)
[2019-10-10] MEDS ORDERED: MORPHINE SULFATE 4 MG/ML VIAL. IV PRN (11:00)
[2019-10-10] MEDS ORDERED: ONDANSETRON PF 4 MG/2 ML VIAL. IV PRN (11:00)
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
[2019-10-10] MEDS ORDERED: FLU VAX QS 2019-20 (36MOS+)/PF 0.5 ML SYRINGE. VAX IM ONE (14:00)
--- NOTE | 2019-10-10 14:05 | PDOC ---
Infectious Disease Note Vital Sign Vital Signs Vital Signs Date Time Temp Pulse Resp B/P (MAP) Pulse Ox O2 Delivery O2 Flow Rate FiO2 10/10/19 12:00 56 16 115/78 (90) 97 Room Air 10/10/19 07:07 98.0 98.0 Labs Lab Laboratory Tests Test 10/10/19 07:28 10/10/19 08:06 White Blood Count 4.2 x10^3/uL (4.0-11.0) Red Blood Count 4.59 x10^6/uL (4.30-5.70) Hemoglobin 15.0 g/dL (13.0-17.5) Hematocrit 43.7 % (39.0-53.0) Mean Corpuscular Volume 95 fL (79-100) Mean Corpuscular Hemoglobin 33 pg (25-35) Mean Corpuscular Hemoglobin Concent 34 g/dL (31-37) Red Cell Distribution Width 13.0 % (11.5-14.5) Platelet Count 236 x10^3/uL (140-400) Neutrophils (%) (Auto) 57 % (31-73) Lymphocytes (%) (Auto) 35 % (24-48) Monocytes (%) (Auto) 6 % (0-9) Eosinophils (%) (Auto) 2 % (0-3) Basophils (%) (Auto) 1 % (0-3) Neutrophils # (Auto) 2.4 x10^3/uL (1.8-7.7) Lymphocytes # (Auto) 1.4 x10^3/uL (1.0-4.8) Monocytes # (Auto) 0.2 x10^3/uL (0.0-1.1) Eosinophils # (Auto) 0.1 x10^3/uL (0.0-0.7) Basophils # (Auto) 0.0 x10^3/uL (0.0-0.2) Sodium Level 138 mmol/L (136-145) Potassium Level 4.0 mmol/L (3.5-5.1) Chloride Level 103 mmol/L (98-107) Carbon Dioxide Level 29 mmol/L (21-32) Anion Gap 6 (6-14) Blood Urea Nitrogen 8 mg/dL (8-26) Creatinine 0.9 mg/dL (0.7-1.3) Estimated GFR (Cockcroft-Gault) 110.9 BUN/Creatinine Ratio 9 (6-20) Glucose Level 95 mg/dL (70-99) Calcium Level 8.8 mg/dL (8.5-10.1) Total Bilirubin 0.4 mg/dL (0.2-1.0) Aspartate Amino Transf (AST/SGOT) 21 U/L (15-37) Alanine Aminotransferase (ALT/SGPT) 18 U/L (16-63) Alkaline Phosphatase 99 U/L (46-116) Total Protein 7.4 g/dL (6.4-8.2) Albumin 3.9 g/dL (3.4-5.0) Albumin/Globulin Ratio 1.1 (1.0-1.7) Lipase 106 U/L (73-393) Urine Collection Type Unknown Urine Color Yellow Urine Clarity Clear Urine pH 7.0 Urine Specific [place] 1.025 Urine Protein Negative mg/dL (NEG-TRACE) Urine Glucose (UA) Negative mg/dL (NEG) Urine Ketones (Stick) Trace mg/dL (NEG) Urine Blood Negative (NEG) Urine Nitrite Negative (NEG) Urine Bilirubin Negative (NEG) Urine Urobilinogen Dipstick 1.0 mg/dL (0.2 mg/dL) Urine Leukocyte Esterase Small (NEG) Urine RBC 0 /HPF (0-2) Urine WBC 5-10 /HPF (0-4) Urine Squamous Epithelial Cells Few /LPF Urine Bacteria 0 /HPF (0-FEW) Urine Mucus Marked /LPF Urine Opiates Screen Neg (NEG) Urine Methadone Screen Neg (NEG) Urine Barbiturates Neg (NEG) Urine Phencyclidine Screen Neg (NEG) Urine Amphetamine/Methamphetamine Neg (NEG) Urine Benzodiazepines Screen Neg (NEG) Urine Cocaine Screen Neg (NEG) Urine Cannabinoids Screen Pos (NEG) Urine Ethyl Alcohol Neg (NEG) Objective Assessment pt seen, consult dictated Plan Plan of Care / VONDA VALENTIN MD Oct 10, 2019 14:05
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
[2019-10-10 15:00] VITALS: BP 102/71
[2019-10-10] MEDS ORDERED: PIPERACILLIN/TAZOBACTAM 3.375 GM in IV NORMAL SALINE 50ML 50 ML IV ONE (16:00)
--- NOTE | 2019-10-10 17:52 | RAD ---
AP abdomen radiograph 10/10/2019 CLINICAL HISTORY: Post NG tube placement. An AP erect portable digital radiograph of the abdomen to include the mid/lower chest was obtained. A NG tube is seen. The tip of this tube extends to overlie the body of the stomach. The side-port of the NG tube overlies the expected location of the distal thoracic esophagus/GE junction. The visualized abdominal bowel gas pattern is nonobstructive. The visualized lungs are clear. The osseous structures are grossly intact. IMPRESSION: The tip of the NG tube overlies the body of the stomach. Electronically signed by: Maoy Lafleur MD (10/10/2019 5:49 PM) [facility]
[2019-10-10 19:30] VITALS: BP 114/79
[2019-10-10] MEDS: IV NORMAL SALINE 1000ML BAG 1,000 ML IV SCH (19:30)
--- NOTE | 2019-10-10 21:22 | CONS ---
DATE OF CONSULTATION: 10/10/2019 REQUESTING PHYSICIAN: Dr. Lerma. REASON FOR CONSULTATION: Duodenal perforation. HISTORY OF PRESENT ILLNESS: This is a 44-year-old -[place] gentleman with a history of COPD, who also has had perforated ulcers in the past with a surgery done, now comes in with abdominal pain. CT showed again perforated ulcer. The patient has had some nausea. The patient denies any fever, has had vomiting one time. Denies any diarrhea, denies any chest pain, shortness of breath, fever, headache or visual symptoms. PAST MEDICAL HISTORY: Positive for history of perforated ulcers, has had surgery done in the past, emphysema, gastroesophageal reflux disease, history of substance abuse. SOCIAL HISTORY: Positive for smoking, marijuana use. Denies alcohol use. ALLERGIES: No known drug allergies. CURRENT MEDICATIONS: Reviewed. The patient is on Zosyn. REVIEW OF SYSTEMS: As per HPI, all other systems reviewed are negative. PHYSICAL EXAMINATION: GENERAL: Alert, oriented gentleman, not in distress. VITAL SIGNS: Stable, afebrile. HEENT: NAD. NECK: Supple, no JVP, no lymphadenopathy. LUNGS: Clear. HEART: S1, S2 regular. ABDOMEN: Mild epigastric tenderness present. No rebound or guarding. EXTREMITIES: No edema, cyanosis. SKIN: Unremarkable. NEUROLOGIC: The patient is neurologically alert, awake and appropriate. No focal neurologic deficit. LABORATORY DATA: White count is normal. BUN and creatinine is normal. Urinalysis unremarkable. Drug screen showed marijuana positive. CT of the abdomen and pelvis as I mentioned in HPI. IMPRESSION: 1. Perforated, most likely duodenal ulcer. 2. History of chronic obstructive pulmonary disease. 3. History of a perforated ulcer in the past with surgery done in the past. RECOMMENDATIONS: Continue Zosyn for the time being. Management as per Surgery. Supportive care. Probably worth doing H. pylori stool antigen and we will continue to follow. Thank you very much, Dr. Lerma, for giving me the opportunity to participate in this patient's care. VONDA VALENTIN MD DR: DAVID/nayely JOB#: [id number] / [id number]
[2019-10-10 23:35] VITALS: BP 108/77
[2019-10-11 03:35] VITALS: BP 109/65
--- NOTE | 2019-10-11 05:03 | NUR ---
patient ambulate to bathroom with SBA x1.
[2019-10-11] MEDS: IV NORMAL SALINE 1000ML BAG 1,000 ML IV SCH ×2 (06:31→22:00)
[2019-10-11 07:00] VITALS: BP 114/71
[2019-10-11] MEDS: PANTOPRAZOLE SODIUM IV DRIP 80 MG in IV NORMAL SALINE 100ML 100 ML IV SCH ×2 (09:02→18:04)
--- NOTE | 2019-10-11 09:07 | PDOC ---
Infectious Disease Note Subjective Subjective pt is c/o nose pain, and very upset with NPO and NG ROS ROS no n/v/d/ no BM Vital Sign Vital Signs Vital Signs Date Time Temp Pulse Resp B/P (MAP) Pulse Ox O2 Delivery O2 Flow Rate FiO2 10/11/19 07:00 98.7 63 18 114/71 (85) 94 Room Air 98.7 Physical Exam PHYSICAL EXAM GENERAL: Alert, oriented gentleman, not in distress. VITAL SIGNS: Stable, afebrile. HEENT: NAD. NECK: Supple, no JVP, no lymphadenopathy. LUNGS: Clear. HEART: S1, S2 regular. ABDOMEN: Mild epigastric tenderness present. No rebound or guarding. EXTREMITIES: No edema, cyanosis. SKIN: Unremarkable. NEUROLOGIC: The patient is neurologically alert, awake and appropriate. No focal neurologic deficit. Objective Assessment 1. Perforated, most likely duodenal ulcer. 2. History of chronic obstructive pulmonary disease. 3. History of a perforated ulcer in the past with surgery done in the past. Plan Plan of Care cont NG cont NPO cont VONDA Downey MD Oct 11, 2019 09:07
--- NOTE | 2019-10-11 09:14 | PDOC ---
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: SURGICAL PROGRESS NOTE Subjective upset because throat sore, wants ice chips wants to just have surgery Vital Signs Vital Signs Date Time Temp Pulse Resp B/P (MAP) Pulse Ox O2 Delivery O2 Flow Rate FiO2 10/11/19 07:00 98.7 63 18 114/71 (85) 94 Room Air 98.7 I&O Intake and Output 10/11/19 07:00 Intake Total 2120 ml Balance 2120 ml Intake Oral 0 ml IV Total 2120 ml # Voids 1 General: Alert, Cooperative, No acute distress HEENT: Other (ng in place) Abdomen: Soft, Other (NTTP) Labs Laboratory Tests Test 10/10/19 07:28 10/10/19 08:06 White Blood Count 4.2 x10^3/uL (4.0-11.0) Red Blood Count 4.59 x10^6/uL (4.30-5.70) Hemoglobin 15.0 g/dL (13.0-17.5) Hematocrit 43.7 % (39.0-53.0) Mean Corpuscular Volume 95 fL (79-100) Mean Corpuscular Hemoglobin 33 pg (25-35) Mean Corpuscular Hemoglobin Concent 34 g/dL (31-37) Red Cell Distribution Width 13.0 % (11.5-14.5) Platelet Count 236 x10^3/uL (140-400) Neutrophils (%) (Auto) 57 % (31-73) Lymphocytes (%) (Auto) 35 % (24-48) Monocytes (%) (Auto) 6 % (0-9) Eosinophils (%) (Auto) 2 % (0-3) Basophils (%) (Auto) 1 % (0-3) Neutrophils # (Auto) 2.4 x10^3/uL (1.8-7.7) Lymphocytes # (Auto) 1.4 x10^3/uL (1.0-4.8) Monocytes # (Auto) 0.2 x10^3/uL (0.0-1.1) Eosinophils # (Auto) 0.1 x10^3/uL (0.0-0.7) Basophils # (Auto) 0.0 x10^3/uL (0.0-0.2) Sodium Level 138 mmol/L (136-145) Potassium Level 4.0 mmol/L (3.5-5.1) Chloride Level 103 mmol/L (98-107) Carbon Dioxide Level 29 mmol/L (21-32) Anion Gap 6 (6-14) Blood Urea Nitrogen 8 mg/dL (8-26) Creatinine 0.9 mg/dL (0.7-1.3) Estimated GFR (Cockcroft-Gault) 110.9 BUN/Creatinine Ratio 9 (6-20) Glucose Level 95 mg/dL (70-99) Calcium Level 8.8 mg/dL (8.5-10.1) Total Bilirubin 0.4 mg/dL (0.2-1.0) Aspartate Amino Transf (AST/SGOT) 21 U/L (15-37) Alanine Aminotransferase (ALT/SGPT) 18 U/L (16-63) Alkaline Phosphatase 99 U/L (46-116) Total Protein 7.4 g/dL (6.4-8.2) Albumin 3.9 g/dL (3.4-5.0) Albumin/Globulin Ratio 1.1 (1.0-1.7) Lipase 106 U/L (73-393) Urine Collection Type Unknown Urine Color Yellow Urine Clarity Clear Urine pH 7.0 Urine Specific [place] 1.025 Urine Protein Negative mg/dL (NEG-TRACE) Urine Glucose (UA) Negative mg/dL (NEG) Urine Ketones (Stick) Trace mg/dL (NEG) Urine Blood Negative (NEG) Urine Nitrite Negative (NEG) Urine Bilirubin Negative (NEG) Urine Urobilinogen Dipstick 1.0 mg/dL (0.2 mg/dL) Urine Leukocyte Esterase Small (NEG) Urine RBC 0 /HPF (0-2) Urine WBC 5-10 /HPF (0-4) Urine Squamous Epithelial Cells Few /LPF Urine Bacteria 0 /HPF (0-FEW) Urine Mucus Marked /LPF Urine Opiates Screen Neg (NEG) Urine Methadone Screen Neg (NEG) Urine Barbiturates Neg (NEG) Urine Phencyclidine Screen Neg (NEG) Urine Amphetamine/Methamphetamine Neg (NEG) Urine Benzodiazepines Screen Neg (NEG) Urine Cocaine Screen Neg (NEG) Urine Cannabinoids Screen Pos (NEG) Urine Ethyl Alcohol Neg (NEG) Problem List Problems Medical Problems: (1) Perforated gastric ulcer Status: Acute Assessment/Plan continue abx, NPO, PPI, bowel rest, NG KATHY GALINDO MD 10/11/19 1222: SURGICAL PROGRESS NOTE Assessment/Plan Agree with above, continue aggressive antiulcer management DEVIN LUX APRN Oct 11, 2019 09:14 KATHY GALINDO MD Oct 11, 2019 12:22
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
[2019-10-11 11:00] VITALS: BP 110/68
[2019-10-11] MEDS: PIPERACILLIN/TAZOBACTAM 3.375 GM in IV NORMAL SALINE 50ML 50 ML IV SCH ×3 (12:22→23:59)
[2019-10-11 15:00] VITALS: BP 123/69
--- NOTE | 2019-10-11 15:01 | NUR ---
SW following. Discussed with RN, pt is from home with , currently NPO, NG tube, IV zosyn, no OT needs, wait PT note. RN advised pt has bed bugs at home. SW will continue to follow for discharge planning needs.
[2019-10-11] MEDS ORDERED: ONDANSETRON PF 4 MG/2 ML VIAL. IVP PRN (18:45)
[2019-10-11] MEDS ORDERED: MORPHINE SULFATE 2 MG/ML VIAL. IV PRN (18:45)
[2019-10-11] MEDS ORDERED: PHENOL ORAL SPRAY 177ML BOTTLE. PO PRN (19:30)
[2019-10-11 19:51] VITALS: BP 119/74
[2019-10-11 23:29] VITALS: BP 126/68
[2019-10-12] MEDS: PANTOPRAZOLE SODIUM IV DRIP 80 MG in IV NORMAL SALINE 100ML 100 ML IV SCH ×2 (02:46→13:09)
[2019-10-12 04:45] LABS: BASO % 0 % (0-3); EOS % 0 % (0-3); HEMATOCRIT 42.6 % (39.0-53.0); HEMOGLOBIN 14.1 g/dL (13.0-17.5); LYMPH # 1.2 x10^3/uL (1.0-4.8); LYMPH % 20 % (24-48); MEAN CORPUSCULAR HEMOGLOBIN 32 pg (25-35); MEAN CORPUSCULAR HGB CONC 33 g/dL (31-37); MEAN CORPUSCULAR VOLUME 96 fL (79-100); MONO # 0.3 x10^3/uL (0.0-1.1); MONO % 5 % (0-9); NEUT # 4.5 x10^3/uL (1.8-7.7); NEUT % 75 % (31-73); PLATELET COUNT 204 x10^3/uL (140-400); RED BLOOD COUNT 4.43 x10^6/uL (4.30-5.70); RED CELL DISTRIBUTION WIDTH 12.8 % (11.5-14.5)
[2019-10-12 05:05] LABS: ALBUMIN 3.1 g/dL (3.4-5.0); ALBUMIN/GLOBULIN RATIO 0.9 (1.0-1.7); CALCIUM 8.5 mg/dL (8.5-10.1); GFR 98.2; POTASSIUM 4.3 mmol/L (3.5-5.1); TOTAL BILIRUBIN 0.8 mg/dL (0.2-1.0); TOTAL PROTEIN 6.5 g/dL (6.4-8.2)
[2019-10-12] MEDS: PIPERACILLIN/TAZOBACTAM 3.375 GM in IV NORMAL SALINE 50ML 50 ML IV SCH ×4 (05:19→23:41)
[2019-10-12 07:00] VITALS: BP 132/74
--- NOTE | 2019-10-12 09:15 | PDOC ---
DEVIN LUX KIER TENDER 10/12/19 0915: SURGICAL PROGRESS NOTE Subjective main complaint is NG no abd pain Vital Signs Vital Signs Date Time Temp Pulse Resp B/P (MAP) Pulse Ox O2 Delivery O2 Flow Rate FiO2 10/12/19 07:00 98.1 58 16 132/74 (93) 97 Room Air 98.1 I&O Intake and Output 10/12/19 07:00 Intake Total 0 ml Output Total 450 ml Balance -450 ml Intake Oral 0 ml Output Urine Total 450 ml # Voids 1 General: Alert, Cooperative HEENT: Other (ng in place) Abdomen: Soft, No tenderness Labs Laboratory Tests Test 10/12/19 03:40 White Blood Count 6.0 x10^3/uL (4.0-11.0) Red Blood Count 4.43 x10^6/uL (4.30-5.70) Hemoglobin 14.1 g/dL (13.0-17.5) Hematocrit 42.6 % (39.0-53.0) Mean Corpuscular Volume 96 fL (79-100) Mean Corpuscular Hemoglobin 32 pg (25-35) Mean Corpuscular Hemoglobin Concent 33 g/dL (31-37) Red Cell Distribution Width 12.8 % (11.5-14.5) Platelet Count 204 x10^3/uL (140-400) Neutrophils (%) (Auto) 75 % (31-73) Lymphocytes (%) (Auto) 20 % (24-48) Monocytes (%) (Auto) 5 % (0-9) Eosinophils (%) (Auto) 0 % (0-3) Basophils (%) (Auto) 0 % (0-3) Neutrophils # (Auto) 4.5 x10^3/uL (1.8-7.7) Lymphocytes # (Auto) 1.2 x10^3/uL (1.0-4.8) Monocytes # (Auto) 0.3 x10^3/uL (0.0-1.1) Eosinophils # (Auto) 0.0 x10^3/uL (0.0-0.7) Basophils # (Auto) 0.0 x10^3/uL (0.0-0.2) Sodium Level 138 mmol/L (136-145) Potassium Level 4.3 mmol/L (3.5-5.1) Chloride Level 104 mmol/L (98-107) Carbon Dioxide Level 23 mmol/L (21-32) Anion Gap 11 (6-14) Blood Urea Nitrogen 15 mg/dL (8-26) Creatinine 1.0 mg/dL (0.7-1.3) Estimated GFR (Cockcroft-Gault) 98.2 BUN/Creatinine Ratio 15 (6-20) Glucose Level 69 mg/dL (70-99) Calcium Level 8.5 mg/dL (8.5-10.1) Total Bilirubin 0.8 mg/dL (0.2-1.0) Aspartate Amino Transf (AST/SGOT) 18 U/L (15-37) Alanine Aminotransferase (ALT/SGPT) 9 U/L (16-63) Alkaline Phosphatase 91 U/L (46-116) Total Protein 6.5 g/dL (6.4-8.2) Albumin 3.1 g/dL (3.4-5.0) Albumin/Globulin Ratio 0.9 (1.0-1.7) Laboratory Tests Test 10/12/19 03:40 White Blood Count 6.0 x10^3/uL (4.0-11.0) Red Blood Count 4.43 x10^6/uL (4.30-5.70) Hemoglobin 14.1 g/dL (13.0-17.5) Hematocrit 42.6 % (39.0-53.0) Mean Corpuscular Volume 96 fL (79-100) Mean Corpuscular Hemoglobin 32 pg (25-35) Mean Corpuscular Hemoglobin Concent 33 g/dL (31-37) Red Cell Distribution Width 12.8 % (11.5-14.5) Platelet Count 204 x10^3/uL (140-400) Neutrophils (%) (Auto) 75 % (31-73) Lymphocytes (%) (Auto) 20 % (24-48) Monocytes (%) (Auto) 5 % (0-9) Eosinophils (%) (Auto) 0 % (0-3) Basophils (%) (Auto) 0 % (0-3) Neutrophils # (Auto) 4.5 x10^3/uL (1.8-7.7) Lymphocytes # (Auto) 1.2 x10^3/uL (1.0-4.8) Monocytes # (Auto) 0.3 x10^3/uL (0.0-1.1) Eosinophils # (Auto) 0.0 x10^3/uL (0.0-0.7) Basophils # (Auto) 0.0 x10^3/uL (0.0-0.2) Sodium Level 138 mmol/L (136-145) Potassium Level 4.3 mmol/L (3.5-5.1) Chloride Level 104 mmol/L (98-107) Carbon Dioxide Level 23 mmol/L (21-32) Anion Gap 11 (6-14) Blood Urea Nitrogen 15 mg/dL (8-26) Creatinine 1.0 mg/dL (0.7-1.3) Estimated GFR (Cockcroft-Gault) 98.2 BUN/Creatinine Ratio 15 (6-20) Glucose Level 69 mg/dL (70-99) Calcium Level 8.5 mg/dL (8.5-10.1) Total Bilirubin 0.8 mg/dL (0.2-1.0) Aspartate Amino Transf (AST/SGOT) 18 U/L (15-37) Alanine Aminotransferase (ALT/SGPT) 9 U/L (16-63) Alkaline Phosphatase 91 U/L (46-116) Total Protein 6.5 g/dL (6.4-8.2) Albumin 3.1 g/dL (3.4-5.0) Albumin/Globulin Ratio 0.9 (1.0-1.7) Problem List Problems Medical Problems: (1) Perforated gastric ulcer Status: Acute Assessment/Plan stable clinically d/w Dr Lerma--will check Upper GI with gastrografin KATHY LERMA MD 10/12/19 1237: SURGICAL PROGRESS NOTE Assessment/Plan Agree with above DEVIN LUX KIER TENDER Oct 12, 2019 09:15 KATHY LERMA MD Oct 12, 2019 12:37
[2019-10-12] MEDS ORDERED: CONTRAST GIVEN. MC PRN (09:45)
[2019-10-12] MEDS ORDERED: IOHEXOL 300 MG/ML 50 ML VIAL. IJ ONE ×3 (09:45)
[2019-10-12 11:00] VITALS: BP 126/77
--- NOTE | 2019-10-12 11:02 | RAD ---
Study: CR upper GI INDICATION: Perforated ulcer follow-up. COMPARISON: Correlation is made to the CT abdomen/pelvis from 10/10/2019. TECHNIQUE: Fluoroscopic evaluation of the stomach and duodenum utilizing Omnipaque contrast injected material through the patient's nasogastric tube. Fluoroscopic cine clips as well as multiple spot images were obtained. FINDINGS: Fluoroscopy time: 2.2 minutes Total dose: 30.7 mGy Contrast remains within the gastric fundus and body with the patient upright. Upon placement of the patient supine, rapid progression of contrast from the stomach, into the duodenum and past the ligament of Treitz. In the region of the gastric antrum and pylorus, the lumen remains narrowed throughout the course of the exam most consistent with inflamed/heaped-up mucosa. A small ulcer is seen to fill with contrast along the cephalad aspect of the antral/pyloric region, image 9 series 13, however there is no extravasation of contrast outside of the lumen to suggest an uncontained perforation. The gastric folds are thickened in the distal body and antral region. The esophagus and gastroesophageal junction are not evaluated due to the presence of the nasogastric tube tip within the stomach. IMPRESSION: 1. A small ulcer fills with contrast along the cephalad aspect of the distal antral/pyloric region. No extravasation of contrast to suggest an uncontained perforation or findings that would suggest a prominent contained perforation. The distal antrum/pyloric region remains narrowed throughout the study likely related to inflamed, edematous mucosa but with normal transit of contrast through the stomach into the proximal small bowel. 2. Thickened gastric folds at the distal body and antrum as can be seen with an underlying gastritis. Electronically signed by: SOHAM CHAND MD (10/12/2019 10:58 AM) [facility]
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
--- NOTE | 2019-10-12 11:34 | NUR ---
SW following. Chart reviewed, discussed with RN. Pt is wanting to leave today. Still NPO. RN advised no SW needs. SW will continue to follow.
[2019-10-12] MEDS: IV NORMAL SALINE 1000ML BAG 1,000 ML IV SCH ×2 (13:08→23:42)
[2019-10-12 15:00] VITALS: BP 116/73
[2019-10-12 19:00] VITALS: BP 74/18
[2019-10-12 23:00] VITALS: BP 100/68
[2019-10-13] MEDS: PANTOPRAZOLE SODIUM IV DRIP 80 MG in IV NORMAL SALINE 100ML 100 ML IV SCH ×3 (00:37→21:27)
[2019-10-13 04:35] LABS: BASO % 1 % (0-3); EOS % 1 % (0-3); HEMATOCRIT 37.9 % (39.0-53.0); HEMOGLOBIN 12.9 g/dL (13.0-17.5); LYMPH # 0.9 x10^3/uL (1.0-4.8); LYMPH % 27 % (24-48); MEAN CORPUSCULAR HEMOGLOBIN 33 pg (25-35); MEAN CORPUSCULAR HGB CONC 34 g/dL (31-37); MEAN CORPUSCULAR VOLUME 96 fL (79-100); MONO # 0.2 x10^3/uL (0.0-1.1); MONO % 6 % (0-9); NEUT # 2.3 x10^3/uL (1.8-7.7); NEUT % 65 % (31-73); PLATELET COUNT 185 x10^3/uL (140-400); RED BLOOD COUNT 3.95 x10^6/uL (4.30-5.70); WHITE BLOOD COUNT 3.6 x10^3/uL (4.0-11.0)
[2019-10-13 04:55] LABS: ALBUMIN 3.1 g/dL (3.4-5.0); ALBUMIN/GLOBULIN RATIO 0.9 (1.0-1.7); CALCIUM 8.1 mg/dL (8.5-10.1); CREATININE 0.8 mg/dL (0.7-1.3); GFR 127.1; POTASSIUM 4.1 mmol/L (3.5-5.1); TOTAL BILIRUBIN 0.4 mg/dL (0.2-1.0); TOTAL PROTEIN 6.5 g/dL (6.4-8.2)
[2019-10-13] MEDS: PIPERACILLIN/TAZOBACTAM 3.375 GM in IV NORMAL SALINE 50ML 50 ML IV SCH (05:24)
[2019-10-13 07:15] VITALS: BP 105/71
--- NOTE | 2019-10-13 09:37 | PDOC ---
Infectious Disease Note Subjective Subjective feeling better, NG is out, on liquid diet, though wants regular diet ROS ROS no n/v/d/sob Vital Sign Vital Signs Vital Signs Date Time Temp Pulse Resp B/P (MAP) Pulse Ox O2 Delivery O2 Flow Rate FiO2 10/13/19 07:15 97.7 53 16 105/71 (82) 98 Room Air 97.7 Physical Exam PHYSICAL EXAM GENERAL: Alert, oriented gentleman, not in distress. VITAL SIGNS: Stable, afebrile. HEENT: NAD. NECK: Supple, no JVP, no lymphadenopathy. LUNGS: Clear. HEART: S1, S2 regular. ABDOMEN: Mild epigastric tenderness present. No rebound or guarding. EXTREMITIES: No edema, cyanosis. SKIN: Unremarkable. NEUROLOGIC: The patient is neurologically alert, awake and appropriate. No focal neurologic deficit. Labs Lab Laboratory Tests Test 10/13/19 04:05 10/13/19 04:15 White Blood Count 3.6 x10^3/uL (4.0-11.0) Red Blood Count 3.95 x10^6/uL (4.30-5.70) Hemoglobin 12.9 g/dL (13.0-17.5) Hematocrit 37.9 % (39.0-53.0) Mean Corpuscular Volume 96 fL (79-100) Mean Corpuscular Hemoglobin 33 pg (25-35) Mean Corpuscular Hemoglobin Concent 34 g/dL (31-37) Red Cell Distribution Width 13.0 % (11.5-14.5) Platelet Count 185 x10^3/uL (140-400) Neutrophils (%) (Auto) 65 % (31-73) Lymphocytes (%) (Auto) 27 % (24-48) Monocytes (%) (Auto) 6 % (0-9) Eosinophils (%) (Auto) 1 % (0-3) Basophils (%) (Auto) 1 % (0-3) Neutrophils # (Auto) 2.3 x10^3/uL (1.8-7.7) Lymphocytes # (Auto) 0.9 x10^3/uL (1.0-4.8) Monocytes # (Auto) 0.2 x10^3/uL (0.0-1.1) Eosinophils # (Auto) 0.0 x10^3/uL (0.0-0.7) Basophils # (Auto) 0.0 x10^3/uL (0.0-0.2) Sodium Level 139 mmol/L (136-145) Potassium Level 4.1 mmol/L (3.5-5.1) Chloride Level 105 mmol/L (98-107) Carbon Dioxide Level 27 mmol/L (21-32) Anion Gap 7 (6-14) Blood Urea Nitrogen 8 mg/dL (8-26) Creatinine 0.8 mg/dL (0.7-1.3) Estimated GFR (Cockcroft-Gault) 127.1 BUN/Creatinine Ratio 10 (6-20) Glucose Level 106 mg/dL (70-99) Calcium Level 8.1 mg/dL (8.5-10.1) Total Bilirubin 0.4 mg/dL (0.2-1.0) Aspartate Amino Transf (AST/SGOT) 16 U/L (15-37) Alanine Aminotransferase (ALT/SGPT) 10 U/L (16-63) Alkaline Phosphatase 76 U/L (46-116) Total Protein 6.5 g/dL (6.4-8.2) Albumin 3.1 g/dL (3.4-5.0) Albumin/Globulin Ratio 0.9 (1.0-1.7) Micro Microbiology 10/10/19 Urine Culture - Final, Complete 10/10/19 Urine Culture Result 1 (COURTNEY) - Final, Complete Objective Assessment 1. Perforated, duodenal ulcer. May have sealed off now 2. History of chronic obstructive pulmonary disease. 3. History of a perforated ulcer in the past with surgery done in the past. Plan Plan of Care Upper GI IMPRESSION: 1. A small ulcer fills with contrast along the cephalad aspect of the distal antral/pyloric region. No extravasation of contrast to suggest an uncontained perforation or findings that would suggest a prominent contained perforation. The distal antrum/pyloric region remains narrowed throughout the study likely related to inflamed, edematous mucosa but with normal transit of contrast through the stomach into the proximal small bowel. 2. Thickened gastric folds at the distal body and antrum as can be seen with an underlying gastritis. d/c antibiotics supportive care VONDA VALENTIN MD Oct 13, 2019 09:36
[2019-10-13 11:08] VITALS: BP 96/70
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
--- NOTE | 2019-10-13 13:11 | PDOC ---
PROGRESS NOTES Subjective Subjective feels well, no pain, wants food Objective Objective Vital Signs Date Time Temp Pulse Resp B/P (MAP) Pulse Ox O2 Delivery O2 Flow Rate FiO2 10/13/19 11:08 97.6 59 96/70 (79) 100 Room Air 97.6 10/13/19 07:15 16 Intake and Output 10/13/19 07:00 Intake Total 1020 ml Balance 1020 ml Intake Oral 1020 ml # Voids 2 # Bowel Movements 4 Physical Exam Abdomen: Soft, No tenderness Heart: Regular rate General: Alert, Oriented X3 Neuro: Strength at 5/5 X4 ext Psych/Mental Status: Mental status NL Assessment Assessment Problems Medical Problems: (1) Perforated gastric ulcer Status: Acute Plan Plan of Care Improved, advance diet, continue with antacid therapy per GI, probable discharge tomorrow Comment Review of Relevant I have reviewed the following items neida (where applicable) has been applied. Labs Laboratory Tests Test 10/12/19 03:40 10/13/19 04:05 10/13/19 04:15 White Blood Count 6.0 x10^3/uL (4.0-11.0) 3.6 x10^3/uL (4.0-11.0) Red Blood Count 4.43 x10^6/uL (4.30-5.70) 3.95 x10^6/uL (4.30-5.70) Hemoglobin 14.1 g/dL (13.0-17.5) 12.9 g/dL (13.0-17.5) Hematocrit 42.6 % (39.0-53.0) 37.9 % (39.0-53.0) Mean Corpuscular Volume 96 fL (79-100) 96 fL (79-100) Mean Corpuscular Hemoglobin 32 pg (25-35) 33 pg (25-35) Mean Corpuscular Hemoglobin Concent 33 g/dL (31-37) 34 g/dL (31-37) Red Cell Distribution Width 12.8 % (11.5-14.5) 13.0 % (11.5-14.5) Platelet Count 204 x10^3/uL (140-400) 185 x10^3/uL (140-400) Neutrophils (%) (Auto) 75 % (31-73) 65 % (31-73) Lymphocytes (%) (Auto) 20 % (24-48) 27 % (24-48) Monocytes (%) (Auto) 5 % (0-9) 6 % (0-9) Eosinophils (%) (Auto) 0 % (0-3) 1 % (0-3) Basophils (%) (Auto) 0 % (0-3) 1 % (0-3) Neutrophils # (Auto) 4.5 x10^3/uL (1.8-7.7) 2.3 x10^3/uL (1.8-7.7) Lymphocytes # (Auto) 1.2 x10^3/uL (1.0-4.8) 0.9 x10^3/uL (1.0-4.8) Monocytes # (Auto) 0.3 x10^3/uL (0.0-1.1) 0.2 x10^3/uL (0.0-1.1) Eosinophils # (Auto) 0.0 x10^3/uL (0.0-0.7) 0.0 x10^3/uL (0.0-0.7) Basophils # (Auto) 0.0 x10^3/uL (0.0-0.2) 0.0 x10^3/uL (0.0-0.2) Sodium Level 138 mmol/L (136-145) 139 mmol/L (136-145) Potassium Level 4.3 mmol/L (3.5-5.1) 4.1 mmol/L (3.5-5.1) Chloride Level 104 mmol/L (98-107) 105 mmol/L (98-107) Carbon Dioxide Level 23 mmol/L (21-32) 27 mmol/L (21-32) Anion Gap 11 (6-14) 7 (6-14) Blood Urea Nitrogen 15 mg/dL (8-26) 8 mg/dL (8-26) Creatinine 1.0 mg/dL (0.7-1.3) 0.8 mg/dL (0.7-1.3) Estimated GFR (Cockcroft-Gault) 98.2 127.1 BUN/Creatinine Ratio 15 (6-20) 10 (6-20) Glucose Level 69 mg/dL (70-99) 106 mg/dL (70-99) Calcium Level 8.5 mg/dL (8.5-10.1) 8.1 mg/dL (8.5-10.1) Total Bilirubin 0.8 mg/dL (0.2-1.0) 0.4 mg/dL (0.2-1.0) Aspartate Amino Transf (AST/SGOT) 18 U/L (15-37) 16 U/L (15-37) Alanine Aminotransferase (ALT/SGPT) 9 U/L (16-63) 10 U/L (16-63) Alkaline Phosphatase 91 U/L (46-116) 76 U/L (46-116) Total Protein 6.5 g/dL (6.4-8.2) 6.5 g/dL (6.4-8.2) Albumin 3.1 g/dL (3.4-5.0) 3.1 g/dL (3.4-5.0) Albumin/Globulin Ratio 0.9 (1.0-1.7) 0.9 (1.0-1.7) Laboratory Tests Test 10/13/19 04:05 10/13/19 04:15 White Blood Count 3.6 x10^3/uL (4.0-11.0) Red Blood Count 3.95 x10^6/uL (4.30-5.70) Hemoglobin 12.9 g/dL (13.0-17.5) Hematocrit 37.9 % (39.0-53.0) Mean Corpuscular Volume 96 fL (79-100) Mean Corpuscular Hemoglobin 33 pg (25-35) Mean Corpuscular Hemoglobin Concent 34 g/dL (31-37) Red Cell Distribution Width 13.0 % (11.5-14.5) Platelet Count 185 x10^3/uL (140-400) Neutrophils (%) (Auto) 65 % (31-73) Lymphocytes (%) (Auto) 27 % (24-48) Monocytes (%) (Auto) 6 % (0-9) Eosinophils (%) (Auto) 1 % (0-3) Basophils (%) (Auto) 1 % (0-3) Neutrophils # (Auto) 2.3 x10^3/uL (1.8-7.7) Lymphocytes # (Auto) 0.9 x10^3/uL (1.0-4.8) Monocytes # (Auto) 0.2 x10^3/uL (0.0-1.1) Eosinophils # (Auto) 0.0 x10^3/uL (0.0-0.7) Basophils # (Auto) 0.0 x10^3/uL (0.0-0.2) Sodium Level 139 mmol/L (136-145) Potassium Level 4.1 mmol/L (3.5-5.1) Chloride Level 105 mmol/L (98-107) Carbon Dioxide Level 27 mmol/L (21-32) Anion Gap 7 (6-14) Blood Urea Nitrogen 8 mg/dL (8-26) Creatinine 0.8 mg/dL (0.7-1.3) Estimated GFR (Cockcroft-Gault) 127.1 BUN/Creatinine Ratio 10 (6-20) Glucose Level 106 mg/dL (70-99) Calcium Level 8.1 mg/dL (8.5-10.1) Total Bilirubin 0.4 mg/dL (0.2-1.0) Aspartate Amino Transf (AST/SGOT) 16 U/L (15-37) Alanine Aminotransferase (ALT/SGPT) 10 U/L (16-63) Alkaline Phosphatase 76 U/L (46-116) Total Protein 6.5 g/dL (6.4-8.2) Albumin 3.1 g/dL (3.4-5.0) Albumin/Globulin Ratio 0.9 (1.0-1.7) Microbiology 10/10/19 Urine Culture - Final, Complete 10/10/19 Urine Culture Result 1 (COURTNEY) - Final, Complete Medications Current Medications Multi-Ingredient Mouthwash/Gargle (Gi Cocktail) 20 ml 1X ONCE SWSW Last administered on 10/10/19at 08:00; Start 10/10/19 at 07:30; Stop 10/10/19 at 07:31; Status DC Famotidine (Pepcid Vial) 20 mg 1X ONCE IVP Last administered on 10/10/19at 07:38; Start 10/10/19 at 07:30; Stop 10/10/19 at 07:31; Status DC Sodium Chloride 1,000 ml @ 1,000 mls/hr Q1H IV Last administered on 10/10/19at 07:37; Start 10/10/19 at 07:19; Stop 10/10/19 at 08:18; Status DC Ondansetron HCl (Zofran) 4 mg 1X ONCE IVP Last administered on 10/10/19at 07:43; Start 10/10/19 at 07:45; Stop 10/10/19 at 07:46; Status DC Iohexol (Omnipaque 300 Mg/ml) 75 ml 1X ONCE IV Last administered on 10/10/19at 08:15; Start 10/10/19 at 08:15; Stop 10/10/19 at 08:16; Status DC Iohexol (Omnipaque 240 Mg/ml) 50 ml 1X ONCE PO Last administered on 10/10/19at 08:15; Start 10/10/19 at 08:15; Stop 10/10/19 at 08:16; Status DC Info (CONTRAST GIVEN -- Rx MONITORING) 1 each PRN DAILY PRN MC SEE COMMENTS; Start 10/10/19 at 08:15; Stop 10/12/19 at 08:14; Status DC Pantoprazole Sodium 80 mg/ Sodium Chloride 100 ml @ 10 mls/hr Q10H IV Last administered on 10/13/19at 08:20; Start 10/10/19 at 10:00 Pantoprazole Sodium (PROTONIX VIAL for IV PUSH) 80 mg 1X ONCE IVP Last administered on 10/10/19at 10:35; Start 10/10/19 at 09:45; Stop 10/10/19 at 09:46; Status DC Piperacillin Sod/ Tazobactam Sod 4.5 gm/Sodium Chloride 100 ml @ 200 mls/hr 1X ONCE IV Last administered on 10/10/19at 10:03; Start 10/10/19 at 09:45; Stop 10/10/19 at 10:14; Status DC Piperacillin Sod/ Tazobactam Sod 3.375 gm/Sodium Chloride 50 ml @ 100 mls/hr 1X ONCE IV Last administered on 10/10/19at 17:52; Start 10/10/19 at 16:00; Stop 10/10/19 at 16:29; Status DC Ondansetron HCl (Zofran) 4 mg PRN Q8HRS PRN IV NAUSEA/VOMITING; Start 10/10/19 at 11:00; Stop 10/11/19 at 10:59; Status DC Morphine Sulfate (Morphine Sulfate) 4 mg PRN Q2HR PRN IV PAIN Last administered on 10/10/19at 16:43; Start 10/10/19 at 11:00; Stop 10/11/19 at 10:59; Status DC Influenza Virus Vaccine Quadrival (Afluria Quad 2019-20 (3yr Up) Syringe) 0.5 ml ONCE ONCE VAX IM Last administered on 10/10/19at 21:27; Start 10/10/19 at 14:00; Stop 10/10/19 at 14:01; Status DC Sodium Chloride 1,000 ml @ 75 mls/hr [id number] IV Last administered on 10/12/19at 23:42; Start 10/10/19 at 19:30 Piperacillin Sod/ Tazobactam Sod 3.375 gm/Sodium Chloride 50 ml @ 100 mls/hr Q6HRS IV Last administered on 10/13/19at 05:24; Start 10/11/19 at 11:00; Stop 10/13/19 at 09:38; Status DC Morphine Sulfate (Morphine Sulfate) 4 mg PRN Q2HR PRN IV PAIN; Start 10/11/19 at 18:45 Ondansetron HCl (Zofran) 4 mg PRN Q6HRS PRN IVP NAUSEA/VOMITING; Start 10/11/19 at 18:45 Phenol (Chloraseptic) 1 spray PRN Q2HR PRN PO SORE THROAT Last administered on 10/11/19at 20:30; Start 10/11/19 at 19:30 Iohexol (Omnipaque 300 Mg/ml) 50 ml 1X ONCE IJ Last administered on 10/12/19at 10:00; Start 10/12/19 at 09:45; Stop 10/12/19 at 09:46; Status DC Iohexol (Omnipaque 300 Mg/ml) 50 ml 1X ONCE IJ Last administered on 10/12/19at 10:00; Start 10/12/19 at 09:45; Stop 10/12/19 at 09:46; Status DC Iohexol (Omnipaque 300 Mg/ml) 50 ml 1X ONCE IJ ; Start 10/12/19 at 09:45; Stop 10/12/19 at 09:46; Status DC Info (CONTRAST GIVEN -- Rx MONITORING) 1 each PRN DAILY PRN MC SEE COMMENTS; Start 10/12/19 at 09:45; Stop 10/14/19 at 09:44 Active Scripts Active [place] 5-325 Tablet (Acetaminophen/Hydrocodone Bitart) 1 Each Tablet 1 Tab PO PRN Q6HRS PRN Ibuprofen 600 Mg Tablet 600 Mg PO PRN Q6HRS PRN Colace (Docusate Sodium) 100 Mg Capsule 100 Mg PO BID PRN [place] 5-325 Tablet (Acetaminophen/Hydrocodone Bitart) 1 Each Tablet 1 Tab PO PRN Q6HRS PRN Vitals/I & O Vital Sign - Last 24 Hours 10/12/19 10/12/19 10/12/19 10/12/19 15:00 19:00 20:00 23:00 Temp 98.1 97.7 98.0 98.1 97.7 98.0 Pulse 66 74 75 Resp 16 18 18 B/P (MAP) 116/73 (87) 74/18 (36) 100/68 (79) Pulse Ox 97 94 96 O2 Delivery Room Air Room Air Room Air Room Air 10/13/19 10/13/19 10/13/19 10/13/19 03:05 07:15 08:00 11:08 Temp 97.7 97.6 97.7 97.6 Pulse 53 59 Resp 20 16 B/P (MAP) 105/71 (82) 96/70 (79) Pulse Ox 98 100 O2 Delivery Room Air Room Air Room Air Intake and Output 10/12/19 10/12/19 10/13/19 15:00 23:00 07:00 Intake Total 520 ml 500 ml Balance 520 ml 500 ml KATHY GALINDO MD Oct 13, 2019 13:11
[2019-10-13 15:07] VITALS: BP 112/67
[2019-10-13] MEDS: IV NORMAL SALINE 1000ML BAG 1,000 ML IV SCH (17:00)
[2019-10-13 19:00] VITALS: BP 107/77
[2019-10-13 23:00] VITALS: BP 110/76
[2019-10-14 03:00] VITALS: BP 103/69
[2019-10-14] MEDS: IV NORMAL SALINE 1000ML BAG 1,000 ML IV SCH (04:55)
[2019-10-14 05:02] LABS: BASO % 0 % (0-3); EOS # 0.1 x10^3/uL (0.0-0.7); EOS % 3 % (0-3); HEMOGLOBIN 12.3 g/dL (13.0-17.5); LYMPH % 35 % (24-48); MEAN CORPUSCULAR HEMOGLOBIN 32 pg (25-35); MEAN CORPUSCULAR HGB CONC 33 g/dL (31-37); MEAN CORPUSCULAR VOLUME 97 fL (79-100); MONO # 0.2 x10^3/uL (0.0-1.1); MONO % 7 % (0-9); NEUT # 1.6 x10^3/uL (1.8-7.7); NEUT % 54 % (31-73); PLATELET COUNT 206 x10^3/uL (140-400); RED BLOOD COUNT 3.83 x10^6/uL (4.30-5.70); RED CELL DISTRIBUTION WIDTH 12.9 % (11.5-14.5); WHITE BLOOD COUNT 2.9 x10^3/uL (4.0-11.0)
[2019-10-14 05:30] LABS: ALBUMIN 2.9 g/dL (3.4-5.0); ALBUMIN/GLOBULIN RATIO 0.9 (1.0-1.7); CREATININE 0.9 mg/dL (0.7-1.3); GFR 110.9; POTASSIUM 4.2 mmol/L (3.5-5.1); TOTAL BILIRUBIN 0.2 mg/dL (0.2-1.0); TOTAL PROTEIN 6.1 g/dL (6.4-8.2)
[2019-10-14] MEDS: PANTOPRAZOLE SODIUM IV DRIP 80 MG in IV NORMAL SALINE 100ML 100 ML IV SCH ×2 (06:07→14:00)
[2019-10-14 07:00] VITALS: BP 121/71
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
[2019-10-14 11:12] VITALS: BP 131/69
--- NOTE | 2019-10-14 12:38 | PDOC ---
PROGRESS NOTES Subjective Subjective doing well Objective Objective Vital Signs Date Time Temp Pulse Resp B/P (MAP) Pulse Ox O2 Delivery O2 Flow Rate FiO2 10/14/19 11:12 97.9 72 18 131/69 (89) 98 Room Air 97.9 Intake and Output 10/14/19 07:00 Intake Total 3130 ml Output Total 750 ml Balance 2380 ml Intake Oral 1090 ml IV Total 1020 ml Other 1020 ml Output Urine Total 750 ml # Voids 2 Physical Exam Abdomen: Soft, No tenderness Assessment Assessment Problems Medical Problems: (1) Perforated gastric ulcer Status: Acute Plan Plan of Care OK from my standpoint to discharge Comment Review of Relevant I have reviewed the following items neida (where applicable) has been applied. Labs Laboratory Tests Test 10/13/19 04:05 10/13/19 04:15 10/14/19 03:50 White Blood Count 3.6 x10^3/uL (4.0-11.0) 2.9 x10^3/uL (4.0-11.0) Red Blood Count 3.95 x10^6/uL (4.30-5.70) 3.83 x10^6/uL (4.30-5.70) Hemoglobin 12.9 g/dL (13.0-17.5) 12.3 g/dL (13.0-17.5) Hematocrit 37.9 % (39.0-53.0) 37.0 % (39.0-53.0) Mean Corpuscular Volume 96 fL (79-100) 97 fL (79-100) Mean Corpuscular Hemoglobin 33 pg (25-35) 32 pg (25-35) Mean Corpuscular Hemoglobin Concent 34 g/dL (31-37) 33 g/dL (31-37) Red Cell Distribution Width 13.0 % (11.5-14.5) 12.9 % (11.5-14.5) Platelet Count 185 x10^3/uL (140-400) 206 x10^3/uL (140-400) Neutrophils (%) (Auto) 65 % (31-73) 54 % (31-73) Lymphocytes (%) (Auto) 27 % (24-48) 35 % (24-48) Monocytes (%) (Auto) 6 % (0-9) 7 % (0-9) Eosinophils (%) (Auto) 1 % (0-3) 3 % (0-3) Basophils (%) (Auto) 1 % (0-3) 0 % (0-3) Neutrophils # (Auto) 2.3 x10^3/uL (1.8-7.7) 1.6 x10^3/uL (1.8-7.7) Lymphocytes # (Auto) 0.9 x10^3/uL (1.0-4.8) 1.0 x10^3/uL (1.0-4.8) Monocytes # (Auto) 0.2 x10^3/uL (0.0-1.1) 0.2 x10^3/uL (0.0-1.1) Eosinophils # (Auto) 0.0 x10^3/uL (0.0-0.7) 0.1 x10^3/uL (0.0-0.7) Basophils # (Auto) 0.0 x10^3/uL (0.0-0.2) 0.0 x10^3/uL (0.0-0.2) Sodium Level 139 mmol/L (136-145) 142 mmol/L (136-145) Potassium Level 4.1 mmol/L (3.5-5.1) 4.2 mmol/L (3.5-5.1) Chloride Level 105 mmol/L (98-107) 109 mmol/L (98-107) Carbon Dioxide Level 27 mmol/L (21-32) 28 mmol/L (21-32) Anion Gap 7 (6-14) 5 (6-14) Blood Urea Nitrogen 8 mg/dL (8-26) 4 mg/dL (8-26) Creatinine 0.8 mg/dL (0.7-1.3) 0.9 mg/dL (0.7-1.3) Estimated GFR (Cockcroft-Gault) 127.1 110.9 BUN/Creatinine Ratio 10 (6-20) 4 (6-20) Glucose Level 106 mg/dL (70-99) 112 mg/dL (70-99) Calcium Level 8.1 mg/dL (8.5-10.1) 8.0 mg/dL (8.5-10.1) Total Bilirubin 0.4 mg/dL (0.2-1.0) 0.2 mg/dL (0.2-1.0) Aspartate Amino Transf (AST/SGOT) 16 U/L (15-37) 21 U/L (15-37) Alanine Aminotransferase (ALT/SGPT) 10 U/L (16-63) 10 U/L (16-63) Alkaline Phosphatase 76 U/L (46-116) 72 U/L (46-116) Total Protein 6.5 g/dL (6.4-8.2) 6.1 g/dL (6.4-8.2) Albumin 3.1 g/dL (3.4-5.0) 2.9 g/dL (3.4-5.0) Albumin/Globulin Ratio 0.9 (1.0-1.7) 0.9 (1.0-1.7) Laboratory Tests Test 10/14/19 03:50 White Blood Count 2.9 x10^3/uL (4.0-11.0) Red Blood Count 3.83 x10^6/uL (4.30-5.70) Hemoglobin 12.3 g/dL (13.0-17.5) Hematocrit 37.0 % (39.0-53.0) Mean Corpuscular Volume 97 fL (79-100) Mean Corpuscular Hemoglobin 32 pg (25-35) Mean Corpuscular Hemoglobin Concent 33 g/dL (31-37) Red Cell Distribution Width 12.9 % (11.5-14.5) Platelet Count 206 x10^3/uL (140-400) Neutrophils (%) (Auto) 54 % (31-73) Lymphocytes (%) (Auto) 35 % (24-48) Monocytes (%) (Auto) 7 % (0-9) Eosinophils (%) (Auto) 3 % (0-3) Basophils (%) (Auto) 0 % (0-3) Neutrophils # (Auto) 1.6 x10^3/uL (1.8-7.7) Lymphocytes # (Auto) 1.0 x10^3/uL (1.0-4.8) Monocytes # (Auto) 0.2 x10^3/uL (0.0-1.1) Eosinophils # (Auto) 0.1 x10^3/uL (0.0-0.7) Basophils # (Auto) 0.0 x10^3/uL (0.0-0.2) Sodium Level 142 mmol/L (136-145) Potassium Level 4.2 mmol/L (3.5-5.1) Chloride Level 109 mmol/L (98-107) Carbon Dioxide Level 28 mmol/L (21-32) Anion Gap 5 (6-14) Blood Urea Nitrogen 4 mg/dL (8-26) Creatinine 0.9 mg/dL (0.7-1.3) Estimated GFR (Cockcroft-Gault) 110.9 BUN/Creatinine Ratio 4 (6-20) Glucose Level 112 mg/dL (70-99) Calcium Level 8.0 mg/dL (8.5-10.1) Total Bilirubin 0.2 mg/dL (0.2-1.0) Aspartate Amino Transf (AST/SGOT) 21 U/L (15-37) Alanine Aminotransferase (ALT/SGPT) 10 U/L (16-63) Alkaline Phosphatase 72 U/L (46-116) Total Protein 6.1 g/dL (6.4-8.2) Albumin 2.9 g/dL (3.4-5.0) Albumin/Globulin Ratio 0.9 (1.0-1.7) Microbiology 10/10/19 Urine Culture - Final, Complete 10/10/19 Urine Culture Result 1 (COURTNEY) - Final, Complete Medications Current Medications Multi-Ingredient Mouthwash/Gargle (Gi Cocktail) 20 ml 1X ONCE SWSW Last administered on 10/10/19at 08:00; Start 10/10/19 at 07:30; Stop 10/10/19 at 07:31; Status DC Famotidine (Pepcid Vial) 20 mg 1X ONCE IVP Last administered on 10/10/19at 07:38; Start 10/10/19 at 07:30; Stop 10/10/19 at 07:31; Status DC Sodium Chloride 1,000 ml @ 1,000 mls/hr Q1H IV Last administered on 10/10/19at 07:37; Start 10/10/19 at 07:19; Stop 10/10/19 at 08:18; Status DC Ondansetron HCl (Zofran) 4 mg 1X ONCE IVP Last administered on 10/10/19at 07:43; Start 10/10/19 at 07:45; Stop 10/10/19 at 07:46; Status DC Iohexol (Omnipaque 300 Mg/ml) 75 ml 1X ONCE IV Last administered on 10/10/19at 08:15; Start 10/10/19 at 08:15; Stop 10/10/19 at 08:16; Status DC Iohexol (Omnipaque 240 Mg/ml) 50 ml 1X ONCE PO Last administered on 10/10/19at 08:15; Start 10/10/19 at 08:15; Stop 10/10/19 at 08:16; Status DC Info (CONTRAST GIVEN -- Rx MONITORING) 1 each PRN DAILY PRN MC SEE COMMENTS; Start 10/10/19 at 08:15; Stop 10/12/19 at 08:14; Status DC Pantoprazole Sodium 80 mg/ Sodium Chloride 100 ml @ 10 mls/hr Q10H IV Last administered on 10/14/19at 06:07; Start 10/10/19 at 10:00 Pantoprazole Sodium (PROTONIX VIAL for IV PUSH) 80 mg 1X ONCE IVP Last administered on 10/10/19at 10:35; Start 10/10/19 at 09:45; Stop 10/10/19 at 09:46; Status DC Piperacillin Sod/ Tazobactam Sod 4.5 gm/Sodium Chloride 100 ml @ 200 mls/hr 1X ONCE IV Last administered on 10/10/19at 10:03; Start 10/10/19 at 09:45; Stop 10/10/19 at 10:14; Status DC Piperacillin Sod/ Tazobactam Sod 3.375 gm/Sodium Chloride 50 ml @ 100 mls/hr 1X ONCE IV Last administered on 10/10/19at 17:52; Start 10/10/19 at 16:00; Stop 10/10/19 at 16:29; Status DC Ondansetron HCl (Zofran) 4 mg PRN Q8HRS PRN IV NAUSEA/VOMITING; Start 10/10/19 at 11:00; Stop 10/11/19 at 10:59; Status DC Morphine Sulfate (Morphine Sulfate) 4 mg PRN Q2HR PRN IV PAIN Last administered on 10/10/19at 16:43; Start 10/10/19 at 11:00; Stop 10/11/19 at 10:59; Status DC Influenza Virus Vaccine Quadrival (Afluria Quad 2019-20 (3yr Up) Syringe) 0.5 ml ONCE ONCE VAX IM Last administered on 10/10/19at 21:27; Start 10/10/19 at 14:00; Stop 10/10/19 at 14:01; Status DC Sodium Chloride 1,000 ml @ 75 mls/hr [id number] IV Last administered on 10/14/19at 04:55; Start 10/10/19 at 19:30 Piperacillin Sod/ Tazobactam Sod 3.375 gm/Sodium Chloride 50 ml @ 100 mls/hr Q6HRS IV Last administered on 10/13/19at 05:24; Start 10/11/19 at 11:00; Stop 10/13/19 at 09:38; Status DC Morphine Sulfate (Morphine Sulfate) 4 mg PRN Q2HR PRN IV PAIN; Start 10/11/19 at 18:45 Ondansetron HCl (Zofran) 4 mg PRN Q6HRS PRN IVP NAUSEA/VOMITING; Start 1 12/11/18 at 18:45 Phenol (Chloraseptic) 1 spray PRN Q2HR PRN PO SORE THROAT Last administered on 10/11/19at 20:30; Start 10/11/19 at 19:30 Iohexol (Omnipaque 300 Mg/ml) 50 ml 1X ONCE IJ Last administered on 10/12/19at 10:00; Start 10/12/19 at 09:45; Stop 10/12/19 at 09:46; Status DC Iohexol (Omnipaque 300 Mg/ml) 50 ml 1X ONCE IJ Last administered on 10/12/19at 10:00; Start 10/12/19 at 09:45; Stop 10/12/19 at 09:46; Status DC Iohexol (Omnipaque 300 Mg/ml) 50 ml 1X ONCE IJ ; Start 10/12/19 at 09:45; Stop 10/12/19 at 09:46; Status DC Info (CONTRAST GIVEN -- Rx MONITORING) 1 each PRN DAILY PRN MC SEE COMMENTS; Start 10/12/19 at 09:45; Stop 10/14/19 at 09:44; Status DC Active Scripts Active [place] 5-325 Tablet (Acetaminophen/Hydrocodone Bitart) 1 Each Tablet 1 Tab PO PRN Q6HRS PRN Ibuprofen 600 Mg Tablet 600 Mg PO PRN Q6HRS PRN Colace (Docusate Sodium) 100 Mg Capsule 100 Mg PO BID PRN [place] 5-325 Tablet (Acetaminophen/Hydrocodone Bitart) 1 Each Tablet 1 Tab PO PRN Q6HRS PRN Vitals/I & O Vital Sign - Last 24 Hours 10/13/19 10/13/19 10/13/19 10/13/19 15:07 19:00 19:40 23:00 Temp 98.2 98.6 98.9 98.2 98.6 98.9 Pulse 63 58 76 Resp 16 18 18 B/P (MAP) 112/67 (82) 107/77 (87) 110/76 (87) Pulse Ox 98 95 96 O2 Delivery Room Air Room Air Room Air Room Air 10/14/19 10/14/19 10/14/19 10/14/19 03:00 07:00 08:00 11:12 Temp 98.1 98.4 97.9 98.1 98.4 97.9 Pulse 57 62 72 Resp 18 20 18 B/P (MAP) 103/69 (80) 121/71 (88) 131/69 (89) Pulse Ox 96 97 98 O2 Delivery Room Air Room Air Room Air Room Air Intake and Output 10/13/19 10/13/19 10/14/19 15:00 23:00 07:00 Intake Total 850 ml 2280 ml Output Total 500 ml 250 ml Balance 350 ml -250 ml 2280 ml KATHY GALINDO MD Oct 14, 2019 12:38
--- NOTE | 2019-10-14 14:30 | NUR ---
DISCHARGE INSTRUCTIONS GIVEN, QUESTIONS AND COND CONCERNS ANSWERED, PATIENT VERBALIZED UNDERSTANDING OF DISCHARGE INFORMATION INCLUDING TAKING ALL MEDICATIONS INSTRUCTED AND FOLLOWING UP WITH HIS PRIMARY PROVIDER IN 1-2 WEEKS. SALINE LOCKS X2 REMOVED FROM RIGHT FOREARM PER ELEVATOR CONSTRUCTOR. IV FLUIDS DISCONTINUED. ALL PERSONAL BELONGIGS GATHERED BY THE PATIENT AND PLACED IN BAGS FOR DISCHARGE.
[2019-10-14 15:03] VITALS: BP 122/77
[2019-10-14] MEDS ORDERED: PANT40TA77 PO (15:04)
--- NOTE | 2019-10-14 15:15 | NUR ---
PATIENT AMBULATES OFF THE UNIT ALONGSIDE PARTS PRODUCT ANALYST AND FAMILY MEMBERS, EMOTIONAL SUPPORT GIVEN, FOLLOW UP APPOINTMENTS ENCOURAGED.
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
== END 2019-10-14 15:15 | disposition home or self-care (01) | DRG 382 ==
LOC: ER 07:03 → 4 NORTH 10:15
PROVIDERS: ADMIT Internal Medicine; ATTEND Internal Medicine
DX: K26.5 Chronic or unspecified duodenal ulcer with perforation (principal); K25.5 Chronic or unspecified gastric ulcer with perforation; F12.90 Cannabis use, unspecified, uncomplicated; J43.9 Emphysema, unspecified; K21.9 Gastro-esophageal reflux disease without esophagitis; K40.90 Unilateral inguinal hernia, without obstruction or gangrene, not specified as recurrent; W34.00XA Accidental discharge from unspecified firearms or gun, initial encounter; Z82.5 Family history of asthma and other chronic lower respiratory diseases; Z87.11 Personal history of peptic ulcer disease; Z83.3 Family history of diabetes mellitus
CPT/HCPCS: 36415; 74018; 74177; 74240; 80053; 80307; 81001; 83690; 85025; 87086; 87338; 90471; 90686; 93005; 96361; 96365; 96375; 99406; C9113; J2270; J2405; J2543; J3490; J7030; Q9966; Q9967; 99285-25; G0378

== ENCOUNTER 2020-08-21 00:20 | Emergency (ER) | payer BC ==
[~2020-08-21] VITALS: Ht 185.4 cm; Wt 70.0 kg
[2020-08-21 02:41] LABS: BASO % 1 % (0-3); EOS # 0.1 x10^3/uL (0.0-0.7); EOS % 1 % (0-3); HEMATOCRIT 40.8 % (39.0-53.0); HEMOGLOBIN 13.8 g/dL (13.0-17.5); LYMPH # 1.3 x10^3/uL (1.0-4.8); LYMPH % 29 % (24-48); MEAN CORPUSCULAR HEMOGLOBIN 33 pg (25-35); MEAN CORPUSCULAR HGB CONC 34 g/dL (31-37); MEAN CORPUSCULAR VOLUME 98 fL (79-100); MONO # 0.2 x10^3/uL (0.0-1.1); MONO % 5 % (0-9); NEUT # 2.9 x10^3/uL (1.8-7.7); NEUT % 64 % (31-73); PLATELET COUNT 228 x10^3/uL (140-400); RED BLOOD COUNT 4.16 x10^6/uL (4.30-5.70); RED CELL DISTRIBUTION WIDTH 13.6 % (11.5-14.5); WHITE BLOOD COUNT 4.5 x10^3/uL (4.0-11.0)
[2020-08-21] MEDS ORDERED: ONDANSETRON PF 4 MG/2 ML VIAL. IVP ONE (02:45)
[2020-08-21] MEDS ORDERED: IV NORMAL SALINE 1000ML BAG 1,000 ML IV ONE (02:45)
[2020-08-21 02:51] LABS: CALCIUM 8.5 mg/dL (8.5-10.1); CREATININE 0.7 mg/dL (0.7-1.3); GFR 147.6; POTASSIUM 3.8 mmol/L (3.5-5.1)
[2020-08-21] MEDS ORDERED: IOHEXOL 300 MG/ML 100ML VIAL. IV ONE (03:00)
[2020-08-21] MEDS ORDERED: IOHEXOL 240 MG/ML 50ML VIAL. PO ONE (03:00)
[2020-08-21] MEDS ORDERED: CONTRAST GIVEN. MC PRN (03:15)
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
[2020-08-21 04:24] LABS: ALBUMIN 3.4 g/dL (3.4-5.0); DIRECT BILIRUBIN 0.1 mg/dL (0.0-0.2); TOTAL BILIRUBIN 0.6 mg/dL (0.2-1.0); TOTAL PROTEIN 6.3 g/dL (6.4-8.2)
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
[2020-08-21 05:01] LABS: BILIRUBIN,URINE NEGATIVE (NEG); CLARITY,URINE CLEAR; COLOR,URINE YELLOW; NITRITE,URINE NEGATIVE (NEG); PROTEIN,URINE NEGATIVE (NEG-TRACE)
[2020-08-21 05:11] LABS: BARBITURATES NEG (NEG); BENZODIAZEPINES NEG (NEG); CANNABINOIDS POS (NEG); COCAINE NEG (NEG); METHADONE NEG (NEG); OPIATES NEG (NEG); PHENCYCLIDINE NEG (NEG)
[2020-08-21 05:12] LABS: AMPHETAMINE/METHAMPHETAMINE NEG (NEG)
[2020-08-21 05:16] LABS: BACTERIA,URINE 0 /HPF (0-FEW); RBC,URINE 0 /HPF (0-2)
[2020-08-21 05:17] LABS: HYALINE CASTS, URINE OCCASIONAL /HPF
[2020-08-21] MEDS ORDERED: AMOX1TAB61 PO (05:19)
[2020-08-21 05:30] VITALS: BP 139/66
== END 2020-08-21 05:52 | disposition home or self-care (01) ==
LOC: ER 00:20
DX: K52.9 Noninfective gastroenteritis and colitis, unspecified (principal); F17.200 Nicotine dependence, unspecified, uncomplicated
CPT/HCPCS: 36415; 74177; 80048; 80076; 80307; 81001; 83690; 85025; 96361; 96374; 99285; J2405; J7030; Q9966; Q9967

== ENCOUNTER 2021-07-20 13:17 | Emergency (ER) | payer BC ==
[~2021-07-20] VITALS: Ht 185.4 cm; Wt 75.0 kg
[~2021-07-20 13:17] MED LIST changes: +AMOX1TAB61 PO
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
[2021-07-20] MEDS ORDERED: FAMOTIDINE 20 MG/2 ML VIAL IVP ONE (14:00)
[2021-07-20] MEDS ORDERED: ONDANSETRON PF 4 MG/2 ML VIAL. IVP ONE (14:00)
[2021-07-20 14:40] LABS: BASO % 1 % (0-3); EOS % 1 % (0-3); HEMATOCRIT 41.5 % (39.0-53.0); HEMOGLOBIN 14.3 g/dL (13.0-17.5); LYMPH # 1.4 x10^3/uL (1.0-4.8); LYMPH % 42 % (24-48); MEAN CORPUSCULAR HEMOGLOBIN 34 pg (25-35); MEAN CORPUSCULAR HGB CONC 34 g/dL (31-37); MEAN CORPUSCULAR VOLUME 98 fL (79-100); MONO # 0.3 x10^3/uL (0.0-1.1); MONO % 7 % (0-9); NEUT # 1.7 x10^3/uL (1.8-7.7); NEUT % 49 % (31-73); PLATELET COUNT 228 x10^3/uL (140-400); RED BLOOD COUNT 4.21 x10^6/uL (4.30-5.70); RED CELL DISTRIBUTION WIDTH 13.8 % (11.5-14.5); WHITE BLOOD COUNT 3.4 x10^3/uL (4.0-11.0)
[2021-07-20 14:49] LABS: CALCIUM 8.5 mg/dL (8.5-10.1); CREATININE 0.8 mg/dL (0.7-1.3); GFR 125.9; POTASSIUM 3.9 mmol/L (3.5-5.1)
[2021-07-20 14:56] LABS: ALBUMIN 3.6 g/dL (3.4-5.0); ALBUMIN/GLOBULIN RATIO 1.2 (1.0-1.7); TOTAL BILIRUBIN 0.5 mg/dL (0.2-1.0); TOTAL PROTEIN 6.6 g/dL (6.4-8.2)
[2021-07-20] MEDS ORDERED: IOHEXOL 300 MG/ML 100ML VIAL. IV ONE (15:00)
[2021-07-20] MEDS ORDERED: CONTRAST GIVEN. MC PRN (15:00)
[2021-07-20] MEDS ORDERED: LIDO:MAALOX 1:1 20 ML SINGLE DOSE. SWSW ONE (16:00)
--- NOTE | 2021-07-20 16:21 | RAD ---
Exam: CT abdomen and pelvis with contrast INDICATION: Abdominal pain TECHNIQUE: Sequential axial images through the abdomen and pelvis obtained following the administrati on of 60 mL of Isovue-370 IV contrast. Sagittal and coronal reformatted images were reconstructed fro m the axial data and reviewed. Exposure: One or more of the following in the visualized dose reduction techniques were utilized for this examination: 1. Automated exposure control 2. Adjustment of the MA and/or KV according to patient size 3. Use of iterative of reconstructive technique Comparisons: 08/21/2020 FINDINGS: Heart size is normal. No pericardial effusion. Visualized lung bases are clear. No pleural effusion. Liver, spleen, pancreas, gallbladder and adrenals are unremarkable. No perinephric inflammation or hydronephrosis. No renal or ureteral calculi are identified. Bladder is partially distended and appears thin-walled. Prostate is not enlarged. Large and small bowel are unremarkable. Appendix is normal. No free intra-abdominal air or fluid. No obstruction. Abdominal aorta has a normal course and caliber. Abdominal vasculature is patent. No enlarged abdominal lymph nodes are identified. No suspicious osseous lesions or acute fractures. IMPRESSION: No acute process identified within the abdomen or pelvis Electronically signed by: Judy Mckenzie MD (07/20/2021 4:18 PM) [facility]
[2021-07-20] MEDS ORDERED: OMEP40CA7 PO (16:42)
[2021-07-20] MEDS ORDERED: SUCR1TAB35 PO (16:42)
[2021-07-20 16:58] VITALS: BP 100/63
== END 2021-07-20 17:54 | disposition home or self-care (01) ==
LOC: ER 13:17
DX: R10.13 Epigastric pain (principal); R11.10 Vomiting, unspecified; F17.200 Nicotine dependence, unspecified, uncomplicated; Z87.11 Personal history of peptic ulcer disease
CPT/HCPCS: 36415; 74177; 80053; 83690; 85025; 96374; 96375; 99285; J2405; J3490; Q9967

== ENCOUNTER 2021-10-25 23:59 | Emergency (ER) | payer BC ==
[~2021-10-25] VITALS: Ht 185.4 cm; Wt 75.0 kg
[~2021-10-25 23:59] MED LIST changes: +OMEP40CA7 PO; +SUCR1TAB35 PO
[2021-10-26] MEDS ORDERED: OMEP40CA7 PO (01:41)
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
[2021-10-26] MEDS ORDERED: ONDANSETRON ODT 4 MG TAB.RAPDIS. PO ONE (01:45)
[2021-10-26] MEDS ORDERED: LIDO:MAALOX 1:1 20 ML SINGLE DOSE. SWSW ONE (01:45)
[2021-10-26 06:02] VITALS: BP 125/67
== END 2021-10-26 06:30 | disposition home or self-care (01) ==
LOC: ER 23:59
DX: R10.13 Epigastric pain (principal); R11.10 Vomiting, unspecified; F17.200 Nicotine dependence, unspecified, uncomplicated; Z87.11 Personal history of peptic ulcer disease
CPT/HCPCS: 99285

== ENCOUNTER 2022-02-23 01:45 | Emergency (ER) | payer BC ==
[~2022-02-23] VITALS: Ht 185.4 cm; Wt 68.8 kg
[2022-02-23] MEDS ORDERED: FAMOTIDINE 20 MG TABLET. PO ONE (03:00)
[2022-02-23] MEDS ORDERED: ONDANSETRON ODT 4 MG TAB.RAPDIS. PO ONE (03:00)
[2022-02-23 03:07] LABS: BASO % 1 % (0-3); EOS # 0.1 x10^3/uL (0.0-0.7); EOS % 2 % (0-3); HEMATOCRIT 38.5 % (39.0-53.0); HEMOGLOBIN 13.1 g/dL (13.0-17.5); LYMPH # 1.5 x10^3/uL (1.0-4.8); LYMPH % 42 % (24-48); MEAN CORPUSCULAR HEMOGLOBIN 33 pg (25-35); MEAN CORPUSCULAR HGB CONC 34 g/dL (31-37); MEAN CORPUSCULAR VOLUME 98 fL (79-100); MONO # 0.2 x10^3/uL (0.0-1.1); MONO % 7 % (0-9); NEUT # 1.7 x10^3/uL (1.8-7.7); NEUT % 49 % (31-73); PLATELET COUNT 239 x10^3/uL (140-400); RED BLOOD COUNT 3.91 x10^6/uL (4.30-5.70); RED CELL DISTRIBUTION WIDTH 13.5 % (11.5-14.5); WHITE BLOOD COUNT 3.5 x10^3/uL (4.0-11.0)
[2022-02-23 03:17] LABS: CALCIUM 8.4 mg/dL (8.5-10.1); CREATININE 0.8 mg/dL (0.7-1.3); GFR 125.9
[2022-02-23 03:23] LABS: ALBUMIN 3.8 g/dL (3.4-5.0); ALBUMIN/GLOBULIN RATIO 1.3 (1.0-1.7); TOTAL BILIRUBIN 0.3 mg/dL (0.2-1.0); TOTAL PROTEIN 6.7 g/dL (6.4-8.2)
[2022-02-23 03:40] VITALS: BP 104/60
[2022-02-23] MEDS ORDERED: ONDA4TAB12 PO (03:49)
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
[2022-02-24] MEDS ORDERED: AMOX1TAB61 PO (09:20)
[2022-02-24] MEDS ORDERED: IBUP-985 PO (09:21)
== END 2022-02-23 04:08 | disposition home or self-care (01) ==
LOC: ER 01:45
DX: R10.13 Epigastric pain (principal); F17.200 Nicotine dependence, unspecified, uncomplicated; Z98.890 Other specified postprocedural states
CPT/HCPCS: 36415; 80053; 83690; 85025; 99285-25

== ENCOUNTER 2022-02-24 05:16 | Emergency (ER) | payer BC ==
[~2022-02-24] VITALS: Ht 186.7 cm; Wt 73.6 kg
[~2022-02-24 05:16] MED LIST changes: +ONDA4TAB12 PO
[2022-02-24] MEDS ORDERED: IV NORMAL SALINE 1000ML BAG 1,000 ML IV SCH (06:30)
[2022-02-24 06:42] LABS: BASO % 1 % (0-3); EOS # 0.1 x10^3/uL (0.0-0.7); EOS % 2 % (0-3); HEMATOCRIT 40.3 % (39.0-53.0); HEMOGLOBIN 13.7 g/dL (13.0-17.5); LYMPH # 1.2 x10^3/uL (1.0-4.8); LYMPH % 38 % (24-48); MEAN CORPUSCULAR HEMOGLOBIN 33 pg (25-35); MEAN CORPUSCULAR HGB CONC 34 g/dL (31-37); MEAN CORPUSCULAR VOLUME 97 fL (79-100); MONO # 0.2 x10^3/uL (0.0-1.1); MONO % 6 % (0-9); NEUT # 1.7 x10^3/uL (1.8-7.7); NEUT % 54 % (31-73); PLATELET COUNT 255 x10^3/uL (140-400); RED BLOOD COUNT 4.14 x10^6/uL (4.30-5.70); RED CELL DISTRIBUTION WIDTH 13.6 % (11.5-14.5); WHITE BLOOD COUNT 3.2 x10^3/uL (4.0-11.0)
[2022-02-24] MEDS ORDERED: CONTRAST GIVEN. MC PRN (06:45)
--- NOTE | 2022-02-24 06:47 | PHYS DOC ---
Past Medical History Past Medical History: Other Additional Past Medical Histor: GASTRIC ULCERS Past Surgical History: Other Additional Past Surgical Histo: HERNIA REPAIR, EYE SURGERY, GASTRIC SURGERY Smoking Status: Current Every Day Smoker Alcohol Use: None Drug Use: Marijuana General Adult EDM: Chief Complaint: ABDOMINAL PAIN HPI: HPI: Patient is a 46 year old male presents to the ER with lower pubic discomfort. Patient states that he has had the pain for for approximately 1 week states he feels a pressure no fevers or chills no dysuria no back pain. No hematuria. Denies any nausea vomiting or diarrhea denies any rectal pain. Patient states that the pain moves from time to time states it is worse with movement. Denies any chest pain denies any shortness of breath. Denies any diaphoresis. Review of Systems: Review of Systems: Constitutional: Denies fever or chills. Eyes: Denies change in visual acuity. HENT: Denies nasal congestion or sore throat. Respiratory: Denies cough or shortness of breath. Cardiovascular: Denies chest pain or edema. [ GI: Suprapubic discomfort. Denies any nausea vomiting abdominal pain : Denies dysuria. No dysuria Musculoskeletal: Denies back pain or joint pain. Integument: Denies rash. Neurologic: Denies headache, focal weakness or sensory changes. Endocrine: Denies polyuria or polydipsia. Lymphatic: Denies swollen glands. Psychiatric: Denies depression or anxiety. Heart Score: C/O Chest Pain: No Risk Factors: Risk Factors: DM, Current or recent (<one month) smoker, HTN, HLP, family history of CAD, obesity. Risk Scores: Score 0 - 3: 2.5% MACE over next 6 weeks - Discharge Home Score 4 - 6: 20.3% MACE over next 6 weeks - Admit for Clinical Observation Score 7 - 10: 72.7% MACE over next 6 weeks - Early Invasive Strategies Current Medications: Current Medications Medications (Trade) Dose Ordered Sig/Mart Start Time Stop Time Status Last Admin Dose Admin Info (CONTRAST GIVEN -- Rx MONITORING) 1 each PRN DAILY PRN 02/24/22 06:45 02/26/22 06:44 Iohexol (Omnipaque 300 Mg/ml) 75 ml 1X ONCE 02/24/22 07:00 02/24/22 07:01 Sodium Chloride 1,000 ml @ 100 mls/hr Q10H 02/24/22 06:30 02/24/22 16:29 02/24/22 06:25 100 MLS/HR Allergies: Allergies: Allergies Coded Allergies Type Severity Reaction Last Updated Verified No Known Drug Allergies 02/24/22 No Physical Exam: PE: Constitutional: Well developed, well nourished, no acute distress, non-toxic appearance. [] HENT: Normocephalic, atraumatic, bilateral external ears normal, oropharynx moist, no oral exudates, nose normal. [] Eyes: PERRLA, EOMI, conjunctiva normal, no discharge. [] Neck: Normal range of motion, no tenderness, supple, no stridor. [] Cardiovascular:Heart rate regular rhythm, no murmur [] Lungs & Thorax: Bilateral breath sounds clear to auscultation [] Abdomen: Bowel sounds normal, soft, no tenderness, no masses, no pulsatile masses. [] Skin: Warm, dry, no erythema, no rash. [] Back: No tenderness, no CVA tenderness. [] Extremities: No tenderness, no cyanosis, no clubbing, ROM intact, no edema. [] Neurologic: Alert and oriented X 3, normal motor function, normal sensory function, no focal deficits noted. [] Psychologic: Affect normal, judgement normal, mood normal. [] Current Patient Data: Labs: Laboratory Tests Test 02/24/22 06:23 02/24/22 08:24 White Blood Count 3.2 x10^3/uL Red Blood Count 4.14 x10^6/uL Hemoglobin 13.7 g/dL Hematocrit 40.3 % Mean Corpuscular Volume 97 fL Mean Corpuscular Hemoglobin 33 pg Mean Corpuscular Hemoglobin Concent 34 g/dL Red Cell Distribution Width 13.6 % Platelet Count 255 x10^3/uL Neutrophils (%) (Auto) 54 % Lymphocytes (%) (Auto) 38 % Monocytes (%) (Auto) 6 % Eosinophils (%) (Auto) 2 % Basophils (%) (Auto) 1 % Neutrophils # (Auto) 1.7 x10^3/uL Lymphocytes # (Auto) 1.2 x10^3/uL Monocytes # (Auto) 0.2 x10^3/uL Eosinophils # (Auto) 0.1 x10^3/uL Basophils # (Auto) 0.0 x10^3/uL Sodium Level 139 mmol/L Potassium Level 4.2 mmol/L Chloride Level 104 mmol/L Carbon Dioxide Level 28 mmol/L Anion Gap 7 Blood Urea Nitrogen 10 mg/dL Creatinine 0.9 mg/dL Estimated GFR (Cockcroft-Gault) 109.9 BUN/Creatinine Ratio 11 Glucose Level 108 mg/dL Calcium Level 8.6 mg/dL Total Bilirubin 0.3 mg/dL Aspartate Amino Transf (AST/SGOT) 21 U/L Alanine Aminotransferase (ALT/SGPT) 28 U/L Alkaline Phosphatase 93 U/L Troponin I High Sensitivity 7 ng/L Total Protein 6.7 g/dL Albumin 3.8 g/dL Albumin/Globulin Ratio 1.3 Lipase 111 U/L Urine Color (Auto) Light yellow Urine Turbidity Clear Urine pH (Auto) 7.5 Urine Specific [place] >1.050 Urine Protein (Auto) Negative mg/dL Urine Glucose (Auto)(UA) Negative mg/dL Urine Ketones (Auto) Negative mg/dL Urine Blood (Auto) Negative Urine Nitrite (Auto) Negative Urine Bilirubin (Auto) Negative Urine Urobilinogen (Auto) 2 mg/dL Urine Leukocyte Esterase (Auto) Negative Urine RBC 0 /HPF Urine WBC Occ /HPF Urine Squamous Epithelial Cells Mod /LPF Urine Bacteria 0 /HPF Urine Opiates Screen Neg Urine Methadone Screen Neg Urine Barbiturates Neg Urine Phencyclidine Screen Neg Urine Amphetamine/Methamphetamine Neg Urine Benzodiazepines Screen Neg Urine Cocaine Screen Neg Urine Cannabinoids Screen Pos Urine Ethyl Alcohol Neg Current Medications Medications (Trade) Dose Ordered Sig/Mart Route PRN Reason Start Time Stop Time Status Last Admin Dose Admin Sodium Chloride 1,000 ml @ 100 mls/hr Q10H IV 02/24/22 06:30 02/24/22 16:29 02/24/22 06:25 Iohexol (Omnipaque 300 Mg/ml) 75 ml 1X ONCE IV 02/24/22 07:00 02/24/22 07:01 DC 02/24/22 07:05 Info (CONTRAST GIVEN -- Rx MONITORING) 1 each PRN DAILY PRN MC SEE COMMENTS 02/24/22 06:45 02/26/22 06:44 Ibuprofen (Motrin) 600 mg 1X ONCE PO 02/24/22 09:15 02/24/22 09:16 UNV Amoxicillin/ Clavulanate Potassium (Augmentin 875/ 125mg) 1 tab 1X ONCE PO 02/24/22 09:15 02/24/22 09:16 UNV Vital Signs: Vital Signs Date Time Temp Pulse Resp B/P (MAP) Pulse Ox O2 Delivery O2 Flow Rate FiO2 02/24/22 05:19 97.9 56 22 127/73 (91) 97 Room Air 97.9 EKG: EKG: [] Radiology/Procedures: Radiology/Procedures: []Axial CT images were obtained through the abdomen and pelvis with intravenous contrast. One or more of the following individualized dose reduction techniques were utilized for this examination: 1. Automated exposure control; 2. Adjustment of the mA and/or kV according to patient size; 3. Use of iterative reconstruction technique. FINDINGS: Vascular: No abdominal aortic aneurysm. Hepatobiliary: Subcentimeter low-density liver lesions which are too small to characterize but commonly from cyst or hemangioma. Additional probable cyst right lobe. Liver is prominent in size. Pancreas: No peripancreatic edema. Spleen: Spleen unremarkable. Renal/Bladder: Left renal cyst. No hydronephrosis. Minimal urine in bladder. Gastrointestinal: There is very little intra-abdominal fat and no oral contrast with associated limited evaluation of the bowel. The appendix is likely partially seen but limited evaluation secondary to lack of contrast and lack of adjacent fat. Wall of the right side of the colon is prominent in thickness IMPRESSION: * The colon is not very distended but a portion of the right side of the colon has a prominent wall. Would correlate with symptoms since causes such as colitis are a consideration. Course & Med Decision Making: Course & Med Decision Making Pertinent Labs and Imaging studies reviewed. (See chart for details) [] Patient is resting comfortably without any distress. CT scan results were discussed with the patient stressed the importance of following up with a specialist and obtaining a colonoscopy as patient is at high risk for developing colon cancer and cannot rule out pathology. Patient understands and verbalizes understanding. We will follow up. Arnold Disclaimer: Arnold Disclaimer: This electronic medical record was generated, in whole or in part, using a voice recognition dictation system. Departure Departure Referrals: ROXANA LEGER DO (PCP) AUDREY PARMAR DO Feb 24, 2022 06:47
[2022-02-24 06:55] LABS: CALCIUM 8.6 mg/dL (8.5-10.1); CREATININE 0.9 mg/dL (0.7-1.3); GFR 109.9; POTASSIUM 4.2 mmol/L (3.5-5.1)
[2022-02-24] MEDS ORDERED: IOHEXOL 300 MG/ML 100ML VIAL. IV ONE (07:00)
[2022-02-24 07:02] LABS: ALBUMIN 3.8 g/dL (3.4-5.0); ALBUMIN/GLOBULIN RATIO 1.3 (1.0-1.7); TOTAL BILIRUBIN 0.3 mg/dL (0.2-1.0); TOTAL PROTEIN 6.7 g/dL (6.4-8.2)
--- NOTE | 2022-02-24 07:27 | RAD ---
INDICATION: Reason: abd pain / Spl. Instructions: IV omni 300 75 mls / History: COMPARISON: July 2021 TECHNIQUE: Axial CT images were obtained through the abdomen and pelvis with intravenous contrast. One or more of the following individualized dose reduction techniques were utilized for this examinat ion: 1. Automated exposure control; 2. Adjustment of the mA and/or kV according to patient size; 3 . Use of iterative reconstruction technique. FINDINGS: Vascular: No abdominal aortic aneurysm. Hepatobiliary: Subcentimeter low-density liver lesions which are too small to characterize but common ly from cyst or hemangioma. Additional probable cyst right lobe. Liver is prominent in size. Pancreas: No peripancreatic edema. Spleen: Spleen unremarkable. Renal/Bladder: Left renal cyst. No hydronephrosis. Minimal urine in bladder. Gastrointestinal: There is very little intra-abdominal fat and no oral contrast with associated limit ed evaluation of the bowel. The appendix is likely partially seen but limited evaluation secondary to lack of contrast and lack of adjacent fat. Wall of the right side of the colon is prominent in thick ness IMPRESSION: * The colon is not very distended but a portion of the right side of the colon has a prominent wall . Would correlate with symptoms since causes such as colitis are a consideration. Electronically signed by: Luis Pickett MD (02/24/2022 7:25 AM) [id number]
--- NOTE | 2022-02-24 07:42 | EKG ---
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
[2022-02-24 08:43] LABS: BARBITURATES NEG (NEG); BENZODIAZEPINES NEG (NEG); CANNABINOIDS POS (NEG); COCAINE NEG (NEG); METHADONE NEG (NEG); OPIATES NEG (NEG); PHENCYCLIDINE NEG (NEG)
[2022-02-24 08:45] LABS: AMPHETAMINE/METHAMPHETAMINE NEG (NEG)
[2022-02-24 08:51] LABS: BACTERIA,URINE 0 /HPF (0-FEW); RBC,URINE 0 /HPF (0-2); WBC,URINE OCC /HPF (0-4)
[2022-02-24] MEDS ORDERED: IBUPROFEN 200 MG TABLET. PO ONE (09:15)
[2022-02-24] MEDS ORDERED: AMOXICILLIN/K CLAV 875/125MG TABLET. PO ONE (09:15)
[2022-02-24] MEDS ORDERED: AMOX1TAB61 PO (09:20)
[2022-02-24] MEDS ORDERED: IBUP-985 PO (09:21)
[2022-02-24 09:30] VITALS: BP 113/69
== END 2022-02-24 09:40 | disposition home health service (06) ==
LOC: ER 05:16
DX: R10.30 Lower abdominal pain, unspecified (principal); F17.200 Nicotine dependence, unspecified, uncomplicated; Z98.890 Other specified postprocedural states
CPT/HCPCS: 36415; 74177; 80053; 80307; 81001; 83690; 84484; 85025; 93005; 96360; 99285; J7030; Q9967